=== PATIENT | female | born 1945 | race Caucasian/White ===

== ENCOUNTER → 2016-06-14 | Outpatient (REF) | payer MEDICARE | LOC: M SFHCWAGY 09:55 | PROVIDERS: ATTEND Nurse Practitioner Family | DX: Z01.419 Encounter for gynecological examination (general) (routine) without abnormal findings (principal); N95.2 Postmenopausal atrophic vaginitis ==

== ENCOUNTER → 2016-07-03 | Outpatient (REF) | payer MEDICARE ==
[2016-07-03 12:33] LABS: ALBUMIN 3.6 GM/DL (3.2-5.2); ALKALINE PHOSPHATASE 76 U/L (45-117); ALT/SGPT 37 U/L (12-78); ANION GAP 7 MEQ/L (8-16); AST/SGOT 23 U/L (15-37); BILIRUBIN,TOTAL 0.6 MG/DL (0.2-1.0); BLOOD UREA NITROGEN 18 MG/DL (7-18); CALCIUM LEVEL 9.2 MG/DL (8.8-10.2); CARBON DIOXIDE LEVEL 31 MEQ/L (21-32); CHLORIDE LEVEL 107 MEQ/L (98-107); CHOLESTEROL LEVEL 183 MG/DL (<200); CREATININE FOR GFR 0.85 MG/DL (0.55-1.02); GLOMERULAR FILTRATION RATE > 60.0 (>39); GLUCOSE, FASTING 127 MG/DL (83-110); POTASSIUM SERUM 4.6 MEQ/L (3.5-5.1); SODIUM LEVEL 145 MEQ/L (136-145); TOTAL PROTEIN 6.6 GM/DL (6.4-8.2); TRIGLYCERIDES LEVEL 112 MG/DL (<150)
== END ==
LOC: M SFHCPLAZ 08:05
PROVIDERS: ATTEND Nurse Practitioner Family
DX: E88.81 Metabolic syndrome and other insulin resistance (principal); E78.2 Mixed hyperlipidemia; E55.9 Vitamin D deficiency, unspecified

== ENCOUNTER → 2016-10-12 | Outpatient (REF) | payer MEDICARE ==
[2016-10-12 12:10] LABS: ALBUMIN 3.8 GM/DL (3.2-5.2); ALBUMIN/GLOBULIN RATIO 1.36 (1.00-1.93); ALKALINE PHOSPHATASE 73 U/L (45-117); ALT/SGPT 31 U/L (12-78); ANION GAP 8 MEQ/L (8-16); AST/SGOT 26 U/L (15-37); BILIRUBIN,TOTAL 0.8 MG/DL (0.2-1.0); BLOOD UREA NITROGEN 16 MG/DL (7-18); CALCIUM LEVEL 9.1 MG/DL (8.8-10.2); CARBON DIOXIDE LEVEL 29 MEQ/L (21-32); CHLORIDE LEVEL 108 MEQ/L (98-107); CREATININE FOR GFR 0.71 MG/DL (0.55-1.02); GLOMERULAR FILTRATION RATE > 60.0 (>39); GLUCOSE, FASTING 107 MG/DL (83-110); POTASSIUM SERUM 4.5 MEQ/L (3.5-5.1); SODIUM LEVEL 145 MEQ/L (136-145); TOTAL PROTEIN 6.6 GM/DL (6.4-8.2)
== END ==
LOC: M SFHCPLAZ 08:06
PROVIDERS: ATTEND Nurse Practitioner Family
DX: E11.9 Type 2 diabetes mellitus without complications (principal)

== ENCOUNTER → 2017-01-08 | Outpatient (CLI) | payer MEDICARE ==
--- NOTE | 2017-01-08 14:19 | REP ---
Clinical: Lung screening. History smoking. Comparison: None Technique: Axial low-dose noncontrast images from the thoracic inlet to the upper abdomen using lung screening technique. Findings: The lung morelos are well-aerated and relatively symmetric. Mild scattered age-related chronic interstitial changes are identified. Biapical opacities most likely represent chronic scarring. No consolidation, significant nodule or mass lesion is appreciated. No pleural effusion/reaction or pneumothorax. Tracheobronchial tree is patent. Mediastinum demonstrates mild atherosclerotic changes of the coronary arteries without cardiomegaly. Impression: Lung-RADS category I-S. No definite nodule or suspicious abnormality. Biapical opacities likely representing chronic scarring. Consider follow-up examination at 9-12 months unless symptomatology warrants earlier reevaluation. Signed by Pascual Kilpatrick MD 01/08/2017 02:11 P
== END ==
LOC: M RAD 13:17
PROVIDERS: ATTEND Nurse Practitioner Family
DX: Z12.2 Encounter for screening for malignant neoplasm of respiratory organs (principal); Z87.891 Personal history of nicotine dependence; R91.8 Other nonspecific abnormal finding of lung field

== ENCOUNTER → 2017-04-16 | Outpatient (REF) | payer OTHER ==
[2017-04-16 12:54] LABS: TOTAL 25(OH) VITAMIN D 68.2 NG/ML (30.0-100.0)
[2017-04-16 13:11] LABS: ALBUMIN 3.6 GM/DL (3.2-5.2); ALKALINE PHOSPHATASE 73 U/L (45-117); ALT/SGPT 24 U/L (12-78); ANION GAP 8 MEQ/L (8-16); AST/SGOT 23 U/L (7-37); BILIRUBIN,TOTAL 0.7 MG/DL (0.2-1.0); BLOOD UREA NITROGEN 15 MG/DL (7-18); CALCIUM LEVEL 9.1 MG/DL (8.8-10.2); CARBON DIOXIDE LEVEL 30 MEQ/L (21-32); CHLORIDE LEVEL 105 MEQ/L (98-107); CHOLESTEROL LEVEL 160 MG/DL (<200); CHOLESTEROL RISK RATIO 2.857 (<5); CREATININE FOR GFR 0.68 MG/DL (0.55-1.30); FREE T4 1.06 NG/DL (0.76-1.46); GLOMERULAR FILTRATION RATE > 60.0 (>39); GLUCOSE, FASTING 116 MG/DL (70-100); HDL CHOLESTEROL 56 MG/DL (>40); NON-HDL-C 104 MG/DL; POTASSIUM SERUM 4.4 MEQ/L (3.5-5.1); SODIUM LEVEL 143 MEQ/L (136-145); TOTAL PROTEIN 6.6 GM/DL (6.4-8.2); TRIGLYCERIDES LEVEL 95 MG/DL (<150)
[2017-04-16 13:35] LABS: ESTIMATED AVERAGE GLUCOSE 143 MG/DL (60-110); HEMOGLOBIN A1c 6.6 %
== END ==
LOC: M SFHCPLAZ 08:58
DX: E11.9 Type 2 diabetes mellitus without complications (principal); E78.2 Mixed hyperlipidemia; E55.9 Vitamin D deficiency, unspecified
CPT/HCPCS: 84443

== ENCOUNTER → 2017-06-17 | Outpatient (CLI) | payer OTHER | LOC: M WHC 09:28 | DX: Z12.31 Encounter for screening mammogram for malignant neoplasm of breast (principal); Z78.0 Asymptomatic menopausal state; Z92.89 Personal history of other medical treatment; Z12.12 Encounter for screening for malignant neoplasm of rectum | CPT/HCPCS: 77067 ==

== ENCOUNTER → 2017-10-15 | Outpatient (REF) | payer OTHER ==
[2017-10-15 11:11] LABS: ESTIMATED AVERAGE GLUCOSE 134 MG/DL (60-110); HEMOGLOBIN A1c 6.3 %
[2017-10-15 11:25] LABS: ALBUMIN 3.4 GM/DL (3.2-5.2); ALBUMIN/GLOBULIN RATIO 1.13 (1.00-1.93); ALKALINE PHOSPHATASE 68 U/L (45-117); ALT/SGPT 25 U/L (12-78); ANION GAP 5 MEQ/L (8-16); AST/SGOT 17 U/L (7-37); BILIRUBIN,TOTAL 0.9 MG/DL (0.2-1.0); BLOOD UREA NITROGEN 20 MG/DL (7-18); CALCIUM LEVEL 9.1 MG/DL (8.8-10.2); CARBON DIOXIDE LEVEL 31 MEQ/L (21-32); CHLORIDE LEVEL 109 MEQ/L (98-107); CREATININE FOR GFR 0.57 MG/DL (0.55-1.30); GLOMERULAR FILTRATION RATE > 60.0 (>39); GLUCOSE, FASTING 113 MG/DL (70-100); POTASSIUM SERUM 4.4 MEQ/L (3.5-5.1); SODIUM LEVEL 145 MEQ/L (136-145); TOTAL PROTEIN 6.4 GM/DL (6.4-8.2)
[2017-10-15 11:33] LABS: CREATININE, URINE 86.8 MG/DL; MALB URINE SIEMENS 7.1 MG/L; MAU/CREAT RATIO 8.1 MCG/MG (0.0-30.0)
== END ==
LOC: M SFHCPLAZ 09:12
DX: E11.9 Type 2 diabetes mellitus without complications (principal)
CPT/HCPCS: 80053

== ENCOUNTER → 2018-01-09 | Outpatient (CLI) | payer OTHER | LOC: M RAD 12:54 | DX: Z12.2 Encounter for screening for malignant neoplasm of respiratory organs (principal); Z87.891 Personal history of nicotine dependence; R91.1 Solitary pulmonary nodule | CPT/HCPCS: G0297 ==

== ENCOUNTER → 2018-04-17 | Outpatient (REF) | payer OTHER ==
[2018-04-17 12:32] LABS: ALBUMIN 3.7 GM/DL (3.2-5.2); ALT/SGPT 22 U/L (12-78); BILIRUBIN,TOTAL 0.9 MG/DL (0.2-1.0); BLOOD UREA NITROGEN 15 MG/DL (7-18); CALCIUM LEVEL 8.9 MG/DL (8.8-10.2); CARBON DIOXIDE LEVEL 34 MEQ/L (21-32); CHLORIDE LEVEL 105 MEQ/L (98-107); CHOLESTEROL LEVEL 161 MG/DL (<200); CHOLESTEROL RISK RATIO 2.775 (<5); CREATININE FOR GFR 0.72 MG/DL (0.55-1.30); GLOMERULAR FILTRATION RATE > 60.0 (>39); GLUCOSE, FASTING 138 MG/DL (70-100); HDL CHOLESTEROL 58 MG/DL (>40); LDL CHOLESTEROL 88 MG/DL (<100); NON-HDL-C 103 MG/DL; POTASSIUM SERUM 4.2 MEQ/L (3.5-5.1); SODIUM LEVEL 143 MEQ/L (136-145); TOTAL PROTEIN 6.4 GM/DL (6.4-8.2); TRIGLYCERIDES LEVEL 74 MG/DL (<150)
[2018-04-17 12:38] LABS: TOTAL 25(OH) VITAMIN D 67.7 NG/ML (30.0-100.0)
[2018-04-17 13:41] LABS: HEMOGLOBIN A1c 7.5 %
== END ==
LOC: M SFHCPLAZ 08:55
PROVIDERS: ATTEND Nurse Practitioner Family
DX: E11.9 Type 2 diabetes mellitus without complications (principal); E78.2 Mixed hyperlipidemia; E55.9 Vitamin D deficiency, unspecified

== ENCOUNTER → 2018-06-25 | Outpatient (CLI) | payer MEDICARE ==
--- NOTE | 2018-06-25 11:39 | REPMRS ---
Patient History The patient states she had a clinical breast exam in 06/2018. Patient is postmenopausal. No known family history of cancer. Benign cyst aspiration of the left breast, June 19, 2000. Benign lumpectomy of the right breast, 1992. No Hormone Replacement Therapy 3D TOMOSYNTHESIS WAS PERFORMED. Digital Woman Screen Mammo: June 25, 2018 - Exam #: [id number] Bilateral CC and MLO view(s) were taken. Technologist: Letitia Hampton, Technologist Prior study comparison: June 17, 2017, digital woman screen mammo performed at [facility]. June 14, 2016, digital woman screen mammo performed at [facility]. FINDINGS: The breast tissue is heterogeneously dense. This may lower the sensitivity of mammography. There has been no change in the appearance of the mammogram from the prior studies. There is a moderate amount of residual fibroglandular tissue which is fairly symmetric. There is no interval development of dominant mass, areas of architectural distortion, or clustered microcalcification typical of malignancy. Assessment: BI-RADS/ACR category 1 mammogram. Negative Mammogram. Recommendation Routine screening mammogram in 1 year (for women over age 40). This mammogram was interpreted with the aid of an FDA-approved computer-aided dectection system. Electronically Signed By: Rohan Zavaleta MD 06/25/18 0626
== END ==
LOC: M WHC 09:31
PROVIDERS: ATTEND Nurse Practitioner Family
DX: Z12.31 Encounter for screening mammogram for malignant neoplasm of breast (principal); N95.9 Unspecified menopausal and perimenopausal disorder; Z78.0 Asymptomatic menopausal state; Z86.018 Personal history of other benign neoplasm

== ENCOUNTER → 2018-07-25 | Outpatient (REF) | payer MEDICARE ==
[2018-07-25 12:23] LABS: ALBUMIN 3.5 GM/DL (3.2-5.2); ALT/SGPT 18 U/L (12-78); BILIRUBIN,TOTAL 0.8 MG/DL (0.2-1.0); BLOOD UREA NITROGEN 13 MG/DL (7-18); CALCIUM LEVEL 9.2 MG/DL (8.8-10.2); CARBON DIOXIDE LEVEL 33 MEQ/L (21-32); CHLORIDE LEVEL 106 MEQ/L (98-107); CHOLESTEROL LEVEL 142 MG/DL (<200); CHOLESTEROL RISK RATIO 2.679 (<5); CREATININE FOR GFR 0.68 MG/DL (0.55-1.30); FREE T4 1.21 NG/DL (0.76-1.46); GLOMERULAR FILTRATION RATE > 60.0 (>39); GLUCOSE, FASTING 123 MG/DL (70-100); HDL CHOLESTEROL 53 MG/DL (>40); LDL CHOLESTEROL 72 MG/DL (<100); NON-HDL-C 89 MG/DL; POTASSIUM SERUM 4.7 MEQ/L (3.5-5.1); SODIUM LEVEL 144 MEQ/L (136-145); TOTAL PROTEIN 6.6 GM/DL (6.4-8.2); TRIGLYCERIDES LEVEL 83 MG/DL (<150)
[2018-07-25 12:44] LABS: MALB URINE SIEMENS 20.4 MG/L; MAU/CREAT RATIO 12.2 MCG/MG (0.0-30.0)
[2018-07-25 12:48] LABS: HEMOGLOBIN A1c 6.7 %
== END ==
LOC: M SFHCPLAZ 08:52
PROVIDERS: ATTEND Nurse Practitioner Family
DX: E11.9 Type 2 diabetes mellitus without complications (principal); E78.2 Mixed hyperlipidemia

== ENCOUNTER → 2018-09-25 | Outpatient (REF) | payer MEDICARE ==
[2018-09-25 16:06] LABS: C REACTIVE PROTEIN QUANTITATIV < 0.30 MG/DL (0.00-0.30)
[2018-09-25 16:07] LABS: BASO % 0.6 % (0.0-1.0); EOS # 0.1 10^3/uL (0.0-0.50); EOS % 1.6 % (0.0-3.0); HEMATOCRIT 42.8 % (36.0-47.0); HEMOGLOBIN 14.3 g/dl (12.0-15.5); LYMPH # 1.3 10^3/uL (1.5-4.5); LYMPH % 25.3 % (24.0-44.0); MEAN CORPUSCULAR HEMOGLOBIN 32.3 pg (27.0-33.0); MEAN CORPUSCULAR HGB CONC 33.4 g/dl (32.0-36.5); MEAN CORPUSCULAR VOLUME 96.6 fl (80.0-96.0); MONO # 0.5 10^3/uL (0.0-0.8); NEUTROPHILS # 3.2 10^3/uL (1.8-7.7); NEUTROPHILS % 63.3 % (36.0-66.0); PLATELET COUNT, AUTOMATED 158 10^3/uL (150-450); RED BLOOD COUNT 4.43 10^6/uL (4.00-5.40)
[2018-09-25 18:27] LABS: ERYTHROCYTE SEDIMENTATION RATE 15 mm/hr (0-30)
[2018-09-26 11:24] LABS: CA 125 7.4 U/ML (<30.2)
[2018-09-26 12:13] LABS: CA19-9 TUMOR MARKER,CARBOHYDRA 1207.3 U/ML (<35.0)
== END ==
LOC: M SFHCPLAZ 13:50
PROVIDERS: ATTEND Physician Assistant Medical
DX: M54.9 Dorsalgia, unspecified (principal)

== ENCOUNTER → 2018-09-25 | Outpatient (CLI) | payer MEDICARE ==
--- NOTE | 2018-09-25 15:09 | REP ---
Lumbar spine five views: There are no comparisons. There is mild scoliosis convex left at the mid lumbar spine. Vertebral body heights are normal. There is disc space narrowing and degenerative disc disease at L1-2, L2-3 and L3-4. There is mild grade 1 retrolisthesis of L2, likely degenerative. There is no spondylolysis. There is facet osteoarthritis at the lower lumbar levels. The pedicles and sacroiliac articulations are unremarkable. Impression: Degenerative disc disease as described. Grade 1 retrolisthesis of L2, likely degenerative. Electronically Signed by Rohan Strange MD 09/25/2018 03:01 P
--- NOTE | 2018-09-25 15:12 | REP ---
Cervical spine seven views: Vertebral body heights and alignment are normal. There is disc space narrowing and degenerative disc disease at multiple levels from C3 - C7. There is no listhesis on flexion or extension. The prevertebral soft tissues are unremarkable. The facets are normally aligned. There is mild foraminal encroachment at multiple levels bilaterally from uncinate spurring. The odontoid view is unremarkable. There is scoliosis convex left in the upper thoracic spine. Impression: Degenerative disc disease as described. Foraminal encroachment as described. Scoliosis of the upper thoracic spine as described. The of nerve root compression or cord compression are clinical considerations, consider MRI follow up. Electronically Signed by Rohan Strange MD 09/25/2018 03:03 P
--- NOTE | 2018-09-25 15:14 | REP ---
Thoracic spine two views: There is scoliosis convex right in the upper thoracic spine. Vertebral body heights, interspacing alignment are normal. The pedicles are unremarkable. Impression: Scoliosis, otherwise negative thoracic spine. Electronically Signed by Rohan Strange MD 09/25/2018 03:05 P
== END ==
LOC: M SMT 14:20
PROVIDERS: ATTEND Physician Assistant Medical
DX: M50.31 Other cervical disc degeneration, high cervical region (principal); M50.321 Other cervical disc degeneration at C4-C5 level; M50.322 Other cervical disc degeneration at C5-C6 level; M50.323 Other cervical disc degeneration at C6-C7 level; M54.9 Dorsalgia, unspecified

== ENCOUNTER → 2018-09-30 | Outpatient (CLI) | payer MEDICARE ==
[2018-09-30 20:27] LABS: ALBUMIN 3.8 GM/DL (3.2-5.2); ALT/SGPT 27 U/L (12-78); BILIRUBIN,TOTAL 0.8 MG/DL (0.2-1.0); BLOOD UREA NITROGEN 16 MG/DL (7-18); CALCIUM LEVEL 9.3 MG/DL (8.8-10.2); CARBON DIOXIDE LEVEL 32 MEQ/L (21-32); CHLORIDE LEVEL 104 MEQ/L (98-107); CREATININE FOR GFR 0.63 MG/DL (0.55-1.30); GLOMERULAR FILTRATION RATE > 60.0 (>39); GLUCOSE, FASTING 111 MG/DL (70-100); SODIUM LEVEL 140 MEQ/L (136-145)
== END ==
LOC: M WUC 18:14
PROVIDERS: ATTEND Nurse Practitioner Family
DX: M54.9 Dorsalgia, unspecified (principal)

== ENCOUNTER → 2018-09-30 | Outpatient (REF) | payer MEDICARE | LOC: M SFHCPLAZ 17:51 | PROVIDERS: ATTEND Nurse Practitioner Family | DX: M54.9 Dorsalgia, unspecified (principal) ==

== ENCOUNTER → 2018-10-01 | Outpatient (CLI) | payer MEDICARE ==
[~2018-10-01] MED LIST: GASTROGRAFIN SOLUTION 30ML (Q9963) As Ordered ONE; ISOVUE-370 76% 100ML VIAL (Q9967) As Ordered ONE
--- NOTE | 2018-10-01 15:25 | REP ---
CT ABDOMEN WITH ORAL CONTRAST WITH AND WITHOUT IV CONTRAST: TECHNIQUE: Axial noncontrast images through the abdomen followed by contrast-enhanced images through the abdomen and pelvis using 100 mL Isovue 370 intravenous contrast material, with coronal and sagittal reformations. Visualized lung bases demonstrate no infiltrate. The liver demonstrates a nodule in the left lobe laterally approximately 1.3 cm in diameter. There is a suggestion of peripheral nodular enhancement within the left side of the nodule and this may represent a hemangioma. However, a metastatic lesion cannot totally be excluded. No other liver nodule is seen. Gallbladder is mildly distended and grossly unremarkable. Spleen is normal in size with no intrinsic abnormality. The adrenal glands demonstrate no nodule. 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 There is on hydronephrosis bilaterally. There is cortical scarring of the left kidney. Pancreas demonstrates a large oval mass involving the body of the pancreas measuring about 5 x 3 cm. The pancreatic duct is obstructed and is peripherally dilated. The mass extends superiorly and encases the celiac artery and extends posteriorly to encase the superior mesenteric artery. There is extension also into the left paraaortic region at the level of the left renal vein. Otherwise there is no evidence of lymphadenopathy, free air or free fluid in the visualized abdomen. No bowel wall thickening is seen. There is a large amount of fecal material in the visualized colon. There are degenerative changes of the spine. IMPRESSION: Mass in the body of the pancreas measures approximately 5 x 3 cm. This appears to obstruct the pancreatic duct with peripheral dilatation of the duct. Mass extends superiorly to encase the celiac artery and posteriorly to encase the superior mesenteric artery. It extends into the left paraaortic region at the level of the left renal vasculature. Nonspecific nodule in the left lobe of the liver demonstrates a suggestion of peripheral nodular enhancement and this possibly represents a hemangioma 1.3 cm in diameter. However, a metastatic lesion cannot be excluded. Dedicated dynamic CT or MRI would be needed to further evaluate. Electronically Signed by Rohan Zavaleta MD 10/02/2018 07:49 A
== END ==
LOC: M RAD 11:45
PROVIDERS: ATTEND Physician Assistant Medical
DX: K86.89 Other specified diseases of pancreas (principal); K76.89 Other specified diseases of liver; M54.9 Dorsalgia, unspecified
CPT/HCPCS: 74170; Q9963; Q9967

== ENCOUNTER → 2018-10-03 | Outpatient (CLI) | payer MEDICARE ==
[~2018-10-03] MED LIST changes: +ASPI81CH33 PO; +ATOR40TA75 PO; +GABA-1171 PO; +GABA-843 PO; -GASTROGRAFIN SOLUTION 30ML (Q9963) As Ordered ONE; +HYDR-3719 PO; +HYDR-4517 PO; +HYDR1SOL22 PO; -ISOVUE-370 76% 100ML VIAL (Q9967) As Ordered ONE; +LIDO2.5C15 TOP; +LOMO2.5T PO; +MEGE40SU5 PO; +METF-791 PO; +MORP-69 PO; +MORP10SO PO; +NEUR300C PO; +OMEG12002 PO; +ONDA-83 PO; +OXYC-517 PO; +PROP10TA56 PO; +VITA-158 PO; +[UNRECOGNIZED DRUG - CODE] PO
[2018-10-03 11:53] LABS: BLOOD UREA NITROGEN 13 MG/DL (7-18); CALCIUM LEVEL 9.8 MG/DL (8.8-10.2); CARBON DIOXIDE LEVEL 34 MEQ/L (21-32); CHLORIDE LEVEL 103 MEQ/L (98-107); CREATININE FOR GFR 0.64 MG/DL (0.55-1.30); GLOMERULAR FILTRATION RATE > 60.0 (>39); GLUCOSE, FASTING 141 MG/DL (70-100); POTASSIUM SERUM 4.3 MEQ/L (3.5-5.1); SODIUM LEVEL 141 MEQ/L (136-145)
== END ==
LOC: M WUC 10:15
PROVIDERS: ATTEND Nurse Practitioner Family
DX: G89.3 Neoplasm related pain (acute) (chronic) (principal)

== ENCOUNTER 2018-11-06 17:07 | Inpatient (IN) | payer MEDICARE ==
[~2018-11-06] VITALS: Ht 167.6 cm; Wt 51.0 kg
[~2018-11-06 17:07] MED LIST changes: -GABA-1171 PO; -GABA-843 PO; -HYDR-4517 PO; -HYDR1SOL22 PO; -LOMO2.5T PO; -MORP10SO PO; -ONDA-83 PO; +ONDA4TAB5 PO
[2018-11-06] MEDS ORDERED: HYDROMORPHONE HCL 0.5 MG/ 0.5 ML SYRINGE (J1170 PER 1) IV PRN (18:00)
[2018-11-06] MEDS ORDERED: ONDANSETRON 4MG/2ML VIAL (J2405) IV ONE (18:00)
[2018-11-06 18:09] LABS: BASO % 0.5 % (0.0-1.0); EOS # 0.1 10^3/uL (0.0-0.5); EOS % 1.4 % (0.0-3.0); HEMATOCRIT 39.6 % (36.0-47.0); HEMOGLOBIN 13.4 g/dl (12.0-15.5); LYMPH # 1.2 10^3/uL (1.5-5.0); LYMPH % 18.5 % (24.0-44.0); MEAN CORPUSCULAR HEMOGLOBIN 32.4 pg (27.0-33.0); MEAN CORPUSCULAR HGB CONC 33.8 g/dl (32.0-36.5); MEAN CORPUSCULAR VOLUME 95.9 fl (80.0-96.0); MONO # 0.6 10^3/uL (0.0-0.8); MONO % 9.6 % (0.0-5.0); NEUTROPHILS # 4.6 10^3/uL (1.5-8.5); NEUTROPHILS % 69.5 % (36.0-66.0); PLATELET COUNT, AUTOMATED 161 10^3/uL (150-450); RED BLOOD COUNT 4.13 10^6/uL (4.00-5.40); WHITE BLOOD COUNT 6.6 10^3/uL (4.0-10.0)
[2018-11-06 18:50] LABS: ALBUMIN 3.3 GM/DL (3.2-5.2); ALT/SGPT 15 U/L (12-78); BILIRUBIN,DIRECT 0.2 MG/DL (0.0-0.2); BILIRUBIN,TOTAL 0.7 MG/DL (0.2-1.0); CK-MB VALUE MASS < 1.0 NG/ML (<3.6); CPK CREATINE PHOSPHOKINASE 51 U/L (26-192); LIPASE 61 U/L (73-393); MB/CK RELATIVE INDEX 1.96 (< OR =4); TOTAL PROTEIN 6.4 GM/DL (6.4-8.2); TROPONIN I < 0.02 NG/ML (< 0.10)
[2018-11-06] MEDS ORDERED: GABA-1171 PO (19:24)
[2018-11-06] MEDS ORDERED: HYDR-4517 PO (19:24)
[2018-11-06 19:27] LABS: APPEARANCE, URINE CLOUDY (CLEAR); BACTERIA, URINE AUTO NEGATIVE (NEGATIVE); BILIRUBIN, URINE AUTO NEGATIVE (NEGATIVE); BLOOD, URINE BLOOD NEGATIVE (NEGATIVE); CALCIUM OXALATE CRYSTALS LARGE; COLOR, URINE YELLOW (YELLOW); GLUCOSE, URINE (UA) AUTO NEGATIVE (NEGATIVE); KETONE, URINE AUTO NEGATIVE (NEGATIVE); LEUKOCYTE ESTERASE, URINE AUTO 3+ (NEGATIVE); MUCUS, URINE SMALL (NEGATIVE); NITRITE, URINE AUTO NEGATIVE (NEGATIVE); PROTEIN, URINE AUTO 1+ mg/dL (NEGATIVE); RBC, URINE AUTO 9 /HPF (0-3); SQUAMOUS EPITHELIAL CELL UR AU 0 /HPF (0-6); TRANSITIONAL EPITHELIAL AUTO <1 /HPF; WBC, URINE AUTO 6 /HPF (0-3)
[2018-11-06] MEDS ORDERED: LIDOCAINE 4% CREAM 5GM (LMX4) TOP ONE (20:00)
--- NOTE | 2018-11-06 20:16 | HPEPDOC ---
General Date of Admission Nov 06, 2018 at 17:08 Date of Service: Nov 06, 2018 Primary Care Physician: DANILO MO NP Attending Physician: JAYLA ERIC DO Chief Complaint The patient is a 73-year-old female admitted with a reason for visit of Intractible Pain/ Pacreatic Cancer. Source: Patient, Family Exam Limitations: No limitations Timing/Duration: Week(s) Severity: Severe History of Present Illness Patient 73 years old female with past medical history of type 2 diabetes, pancreatic cancer presented to the hospital with intractable left-sided back pain. She noted left severe back pain is located in the left flank and became progressively worse. Patient stated that for past few weeks intensity of the pain has been increased. Today patient started taking OxyContin but it didn't alleviate her pain. Of note, patient was recently diagnosed with pancreatic cancer stage IV, CT scan showed pancreatic mass 5 to 3 cm obstructing the pancreatic duct. Also patient was found to have 1.3 cm lesion on the liver. Dr. Partida oncologist planned to start chemotherapy on the next week. Home Medications Scheduled Ascorbic Acid (Vitamin C) 500 Mg Tablet, 500 MG PO QPM, (Reported) TAKES AT DINNERTIME Aspirin (Aspirin) 81 Mg Tab.chew, 81 MG PO QHS, (Reported) Atorvastatin Calcium (Atorvastatin Calcium) 40 Mg Tablet, 40 MG PO DAILY, (Reported) Gabapentin (Gabapentin) 100 Mg Capsule, 100 MG PO TID, (Reported) NEW MEDICATION, HAS NOT STARTED Lidocaine/Prilocaine (Lidocaine-Prilocaine Cream) 2.5%/2.5% Cream..g., 1 APLCT TOP ASDIRECTED Megestrol Acetate (Megestrol Acetate) 400 Mg/10 Ml Oral.susp, 800 MG PO DAILY Metformin HCl (Metformin HCl ER) 500 Mg Tab.er.24h, 1,000 MG PO QPM, (Reported) Morphine Sulfate (Morphine Sulfate ER) 15 Mg Tablet.er, 15 MG PO Q12H, (Reported) TAKES AT NOON AND MIDNIGHT Mv-Mn/Folic/[place]/Vit K/B Comp,C (Women's Daily Pack) 1 Each Tablet, 1 EACH PO QPM, (Reported) TAKES AT DINNERTIME [place]-3 Fatty Acids/Fish Oil ([place] 3 Fish Oil Softgel) 1 Each Capsule.dr, 1 CAP PO QPM, (Reported) TAKES AT DINNER TIME Propranolol HCl (Propranolol HCl) 10 Mg Tablet, 10 MG PO BID, (Reported) Scheduled PRN Hydrocodone/Acetaminophen (Hydrocodone-Acetamin 10-325 mg) 1 Each Tablet, 1 TAB PO Q6H PRN for PAIN, (Reported) NEW RX, HAS NOT STARTED Ondansetron HCl (Ondansetron HCl) 4 Mg Tablet, 1 TAB PO Q6HP PRN for nausea/vomiting Oxycodone HCl (Oxycodone HCl) 5 Mg Tablet, 5 MG PO BIDP PRN for pain Allergies Coded Allergies: amoxicillin (Verified Adverse Reaction, Mild, YEAST INFECTION IF HIGH DOSES, 11/05/18) clavulanic acid (Verified Adverse Reaction, Mild, YEAST INFECTION IF HIGH DOSES, 11/05/18) Past Medical History Medical History Type 2 diabetes, pancreatic carcinoma stage IV Family History Both parents from heart attack, mother had diabetes Social History * Smoker: former Smoker Alcohol: Denies Drugs: denies A-FIB/CHADSVASC A-FIB History Current/History of A-Fib/PAF?: No Current PO Anticoag Therapy: No Review of Systems Constitutional: Reports: Malaise, Weakness Eyes: Denies: Pain, Vision change ENT: Denies: Head Aches, Ear Pain Skin: Denies: Rash, Lesions Pulmonary: Denies: Cough Cardiovascular: Denies: Chest Pain, Palpitations Gastrointestinal: Reports: Abdominal Pain (left flank pain) Genitourinary: Denies: Dysuria, Frequency Hematologic: Denies: Bruising, Bleeding Excessively Endocrine: Denies: Polydipsia, Polyphagia Musculoskeletal: Denies: Neck Pain, Back Pain Psych: Denies: Mood Normal Physical Examination General Exam: Positive: Alert, Cooperative Eye Exam: Positive: PERRLA, Conjunctiva & lids normal ENT Exam: Positive: Atraumatic, Mucous membr. moist/pink Neck Exam: Positive: Supple; Negative: JVD Chest Exam: Positive: Clear to auscultation Heart Exam: Positive: Rate Normal Telemetry: Positive: No significant arrhythmia Abdomen Exam: Positive: BS Hypoactive, Tenderness (left flank tenderness on palpation) Extremity Exam: Negative: Clubbing, Cyanosis Skin Exam: Negative: Nl turgor and temperature Neuro Exam: Positive: Normal Gait, Cranial Nerves 3-12 NL Psych Exam: Positive: Mental status NL Vital Signs Vital Signs Date Time Temp Pulse Resp B/P (MAP) Pulse Ox O2 Delivery O2 Flow Rate FiO2 11/06/18 19:14 19 11/06/18 18:12 11/06/18 17:08 96.4 92 94 Room Air Laboratory Data Labs 24H Laboratory Tests 2 11/06/18 18:01: Immature Granulocyte % (Auto) 0.5, White Blood Count 6.6, Red Blood Count 4.13, Hemoglobin 13.4, Hematocrit 39.6, Mean Corpuscular Volume 95.9, Mean Corpuscular Hemoglobin 32.4, Mean Corpuscular Hemoglobin Concent 33.8, Red Cell Distribution Width 11.8, Platelet Count 161, Neutrophils (%) (Auto) 69.5H, Lymphocytes (%) (Auto) 18.5L, Monocytes (%) (Auto) 9.6H, Eosinophils (%) (Auto) 1.4, Basophils (%) (Auto) 0.5, Neutrophils # (Auto) 4.6, Lymphocytes # (Auto) 1.2L, Monocytes # (Auto) 0.6, Eosinophils # (Auto) 0.1, Basophils # (Auto) 0.0, Nucleated Red Blood Cells % (auto) 0.0, Aspartate Amino Transf (AST/SGOT) 17, Alanine Aminotransferase (ALT/SGPT) 15, Alkaline Phosphatase 77, Total Bilirubin 0.7, Direct Bilirubin 0.2, Total Creatine Kinase 51, Creatine Kinase MB < 1.0, Creatine Kinase MB Relative Index 1.96, Troponin I < 0.02, Total Protein 6.4, Albumin 3.3, Albumin/Globulin Ratio 1.06, Lipase 61L 11/06/18 18:24: POC Glucose (Misc Panel) 193H, POC Sodium (Misc Panel) 136, POC Potassium (Misc Panel) 3.7, POC Chloride (Misc Panel) 97L, POC Total CO2 (Misc Panel) 29.0H, POC Blood Urea Nitrogen (Misc Panel 15, POC Ionized Calcium (Misc Panel) 4.8, POC Creatinine (Misc Panel) 0.5L, POC Hematocrit (Misc Panel) 39.0 11/06/18 19:02: Urine Appearance CLOUDYH, Urine Color YELLOW, Urine pH 6.0, Urine Specific [place] 1.020, Urine Protein 1+H, Urine Glucose (UA) NEGATIVE, Urine Ketones NEGATIVE, Urine Urobilinogen 4.0H, Urine Bilirubin NEGATIVE, Urine Leukocyte Esterase 3+H, Urine Blood NEGATIVE, Urine Nitrite NEGATIVE, Urine WBC (Auto) 6H, Urine RBC (Auto) 9H, Urine Hyaline Casts (Auto) 0, Urine Bacteria (Auto) NEGATIVE, Urine Squamous Epithelial Cells 0, Urine Transitional Epithelial Cells <1, Urine Calcium Oxalate Cryst (Auto) LARGE, Urine Mucus (Auto) SMALL, Urine Sperm (Auto) CBC/BMP Laboratory Tests 11/06/18 18:01 Red Blood Count 4.13, Mean Corpuscular Volume 95.9, Mean Corpuscular Hemoglobin 32.4, Mean Corpuscular Hemoglobin Concent 33.8, Red Cell Distribution Width 11.8, Neutrophils (%) (Auto) 69.5 H, Lymphocytes (%) (Auto) 18.5 L, Monocytes (%) (Auto) 9.6 H, Eosinophils (%) (Auto) 1.4, Basophils (%) (Auto) 0.5, Neutrophils # (Auto) 4.6, Lymphocytes # (Auto) 1.2 L, Monocytes # (Auto) 0.6, Eosinophils # (Auto) 0.1, Basophils # (Auto) 0.0 Assessment/Plan Patient is 73 years old female with past medical history of type 2 diabetes and pancreatic carcinoma stage IV presented to the hospital with intractable pain Problems (1) Intractable pain Status: Acute Problem Text: Dilaudid IV Vicodin by mouth (2) Pancreatic cancer Status: Acute Problem Text: Patient has been diagnosed with pancreatic cancer stage IV Oncologist planned to start chemotherapy on the next week (3) Diabetes mellitus Problem Text: Insulin sliding scale Diabetes diet Plan / VTE VTE Prophylaxis Ordered?: Yes JAYLA ERIC DO Nov 06, 2018 20:16
[2018-11-06 20:25] LABS: HEMOGLOBIN 13.2 g/dl (12.0-15.5); MEAN CORPUSCULAR HEMOGLOBIN 32.9 pg (27.0-33.0); MEAN CORPUSCULAR HGB CONC 33.8 g/dl (32.0-36.5); MEAN CORPUSCULAR VOLUME 97.3 fl (80.0-96.0); PLATELET COUNT, AUTOMATED 159 10^3/uL (150-450); RED BLOOD COUNT 4.01 10^6/uL (4.00-5.40); WHITE BLOOD COUNT 7.9 10^3/uL (4.0-10.0)
--- NOTE | 2018-11-06 20:40 | ECGEPIP ---
[facility] - ED Test Date: 2018-11-06 Pat Name: DORIS FELDER Department: Room: - Gender: Female [employer]: francisco : 1945 Requested By: Rimma Long Order Number: [id number] Reading MD: Rimma Long Measurements Intervals [place] Rate: 88 P: 91 DC: 162 QRS: -3 QRSD: 99 T: 56 QT: 352 QTc: 427 Interpretive Statements SINUS RHYTHM WITH SINUS ARRHYTHMIA MODERATE ST DEPRESSION NO PRIOR Electronically Signed on 11-06-2018 20:39:55 EDT by Rimma Long
[2018-11-06] MEDS: PROPRANOLOL 10 MG TAB PO SCH (21:00)
[2018-11-06] MEDS: HYDROMORPHONE HCL 0.5 MG/ 0.5 ML SYRINGE (J1170 PER 1) IV PRN (21:02)
[2018-11-06 21:05] LABS: BLOOD UREA NITROGEN 14 MG/DL (7-18); CALCIUM LEVEL 9.4 MG/DL (8.8-10.2); CARBON DIOXIDE LEVEL 31 MEQ/L (21-32); CHLORIDE LEVEL 101 MEQ/L (98-107); CREATININE FOR GFR 0.62 MG/DL (0.55-1.30); GLOMERULAR FILTRATION RATE > 60.0 (>39); GLUCOSE, FASTING 133 MG/DL (70-100); POTASSIUM SERUM 3.8 MEQ/L (3.5-5.1); SODIUM LEVEL 139 MEQ/L (136-145)
[2018-11-06] MEDS: GABAPENTIN 100 MG CAP PO SCH (21:27)
[2018-11-06 21:44] VITALS: BP 124/70
[2018-11-07] MEDS: HYDROMORPHONE HCL 0.5 MG/ 0.5 ML SYRINGE (J1170 PER 1) IV PRN (02:03)
[2018-11-07 06:13] VITALS: BP 127/71
[2018-11-07 08:15] LABS: HEMATOCRIT 38.6 % (36.0-47.0); HEMOGLOBIN 12.9 g/dl (12.0-15.5); MEAN CORPUSCULAR HEMOGLOBIN 32.3 pg (27.0-33.0); MEAN CORPUSCULAR HGB CONC 33.4 g/dl (32.0-36.5); MEAN CORPUSCULAR VOLUME 96.5 fl (80.0-96.0); PLATELET COUNT, AUTOMATED 147 10^3/uL (150-450); WHITE BLOOD COUNT 7.2 10^3/uL (4.0-10.0)
[2018-11-07] MEDS: MEGESTROL SUSP 400 MG/10 ML UDC PO SCH (08:26)
[2018-11-07] MEDS: PROPRANOLOL 10 MG TAB PO SCH ×2 (08:26→20:45)
[2018-11-07] MEDS: HYDROcodone/APAP LIQUID 7.5-325MG 15ML UDC (LORTAB ELIXIR) PO PRN ×2 (08:26→18:12)
[2018-11-07] MEDS: GABAPENTIN 100 MG CAP PO SCH ×3 (08:26→20:45)
[2018-11-07] MEDS: HEPARIN SOD (PORCINE) 5000 UNITS/ML VIAL SC SCH ×2 (08:27→20:46)
[2018-11-07 08:29] LABS: BLOOD UREA NITROGEN 11 MG/DL (7-18); CALCIUM LEVEL 9.4 MG/DL (8.8-10.2); CARBON DIOXIDE LEVEL 29 MEQ/L (21-32); CHLORIDE LEVEL 104 MEQ/L (98-107); CREATININE FOR GFR 0.59 MG/DL (0.55-1.30); GLOMERULAR FILTRATION RATE > 60.0 (>39); GLUCOSE, FASTING 149 MG/DL (70-100); POTASSIUM SERUM 3.8 MEQ/L (3.5-5.1); SODIUM LEVEL 140 MEQ/L (136-145)
[2018-11-07] MEDS ORDERED: ATORVASTATIN 20 MG TAB PO SCH (09:00)
[2018-11-07] MEDS ORDERED: GABA-843 PO ×2 (09:08→15:39)
[2018-11-07 10:21] LABS: ALBUMIN 3.1 GM/DL (3.2-5.2); ALT/SGPT 14 U/L (12-78); BILIRUBIN,DIRECT 0.2 MG/DL (0.0-0.2); BILIRUBIN,TOTAL 0.6 MG/DL (0.2-1.0); TOTAL PROTEIN 6.5 GM/DL (6.4-8.2)
--- NOTE | 2018-11-07 11:48 | IPN ---
DATE: 11/07/2018 SUBJECTIVE: The patient complains of constant pain of the left flank, described as achy, burning and constant, without any radiation, fever or chills. No nausea or vomiting. She stated that she has lost about 30 pounds in the last few months because she has had some food aversion. She was given an appetite stimulant by her oncologist and was able to keep her food down yesterday but had a paste-like consistency bowel movement immediate after. The patient had complained of some weakness. Pain is improved with IV Dilaudid. OBJECTIVE: PHYSICAL EXAMINATION: VITAL SIGNS: Temperature 98.5, pulse 94, respiratory rate 16, blood pressure 127/71, 95% on room air. GENERAL: The patient is anicteric. No jaundice. No respiratory distress. No jugular venous distention (JVD). Tongue is midline. Face is symmetric. No cervical lymphadenopathy or thyromegaly. No oral thrush. LUNGS: Clear to auscultation. No wheezing, rales or rhonchi. HEART: S1, S2. Sinus rhythm. ABDOMEN: Soft. Tender in the left flank. No epigastric or left upper quadrant tenderness. Positive bowel sounds times four quadrants. No rebound or guarding. No hepatosplenomegaly. No abdominal bruits. EXTREMITIES: No cyanosis, clubbing or pitting edema. CURRENT HOSPITAL MEDICATIONS: - aspirin 81 mg daily - heparin subcutaneous - Lipitor 40 daily - Megace - Neurontin - propranolol - Lortab every 6 hours LABORATORY DATA: White count 7.3, hemoglobin 12, hematocrit 38, platelet count 147. Sodium 140, potassium 3.9, chloride 104, bicarbonate 29, BUN 11, creatinine 0.59, glucose 149, calcium 9.4, magnesium 2.0, total bilirubin 0.6, direct bilirubin 0.2, AST 13, ALT 14, alkaline phosphatase of 75. IMAGING STUDIES: CT of the abdomen and pelvis on 10/01/2018 showed mass in the body of the pancreas measuring 5 x 3 cm obstructing the pancreatic duct with peripheral dilatation of the duct and extending superiorly to encase the celiac and posteriorly to encase the superior mesenteric artery extending into the left periaortic region at the level of the left renal vasculature. Nonspecific nodule in the left lower lobe of the liver demonstrating suggestion of peripheral nodular enhancement and this possibly represents a hemangioma, metastatic lesion cannot be excluded. ASSESSMENT AND PLAN: This is a 73-year-old female with a history of dyslipidemia, metabolic syndrome, hand tremor, bilateral cataracts, quit smoking in 2011 with a 38 pack year history of smoking, recently diagnosed with pancreatic cancer. Seen by Dr. Isaacs at the [facility] and was planned for chemotherapy. The patient was found to have invasive ductal carcinoma, poorly differentiated, presents to the emergency room with intractable left sided flank pain. CURRENT ISSUES: 1. Intractable pain secondary to stage IV metastatic pancreatic cancer. The patient sees some improvement with IV Dilaudid. Pain management will be consulted to see if celiac block would be helpful. THe patient is followed by Dr. Isaacs at the [facility] for chemotherapy in the next few weeks. 2. 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 We will have vascular surgery evaluate and decide on whether further intervention would be needed in terms of stent placement if the tumor is causing mesenteric ischemia. 3. Weight loss of 30 pounds secondary to cancer cachexia and pancreatic cancer. 4. 38 pack year history of smoking, quit some years ago. 5. Type 2 diabetes. Currently with weight loss and BMI of 18. The patient has recently been placed on Megace to increase her appetite. 6. Anxiety and claustrophobia. The patient is refusing any enclosed imaging studies at this time. [facility]
[2018-11-07 14:04] VITALS: BP 134/72
--- NOTE | 2018-11-07 14:48 | CR.PDOC ---
General Date of Consultation: Nov 07, [address] Granda. HPI: Patient 73 yo F admitted to hospitalist 11/06/18 with intractable left-sided back pain. She states pain has been becoming worse over several months. Patient stated that for past few weeks intensity of the pain has been increased. She states she has pain when she walks down the hallway about snf, this is an achy pain, if she stops walking it decreases. The pain begins in her back and radiates through to the abdomen. She has had diarrhea and poor appetite. Denies constipation. She has had nausea and vomiting but none today. Overall she has been weak. The patient was recently diagnosed with pancreatic cancer stage IV, CT scan showed pancreatic mass 5 to 3 cm obstructing the pancreatic duct. Also patient was found to have 1.3 cm lesion on the liver. Dr. Partida oncologist planned to start chemotherapy on the next week. Vascular Surgery is consulted re mass encasing SMA and celiac arteries. Denies any fevers, chills, Headache, Chest Pain, Shortness of breath, cough, palpitations, change in bladder habits. PMHx: type 2 diabetes, pancreatic cancer Stage IV PSHX: Pt denies SOCHX: Tobacco use:former smoker ETOH: denies FAMHX: CAD, CO, DM ROS: As noted in HPI, otherwise 11pt ROS of systems reviewed and unremarkable. PE: GEN: 73yoF, appears stated age. Well-nourished, well developed. No acute distress. Alert and oriented x 3. Pleasant, interactive. HEENT: Normocephalic, atraumatic. Pupils are equal, round, and reactive to light. Extraocular movements are intact. No nystagmus appreciated. Sclera are nonicteric. Conjunctiva without injection. Nose midline. Nasal turbinates without bogginess. EACs both patent BL. TMs both visualized and zavaleta with good cone of light, no bulging or erythema. No facial asymmetry. Moist mucous membranes. Dentition fair. Pharynx pink and moist, no cobblestoning. Neck supple, trachea midline. No lymphadenopathy or thyromegaly appreciated. CHEST: Regular rate and rhythm, +S1, +S2 LUNGS: Clear to auscultation bilaterally. No wheezes, rales, or rhonchi. Breathing appears symmetric and easy. Patient is speaking in full sentences. No accessory muscle use. ABD: Round, soft, non-tender, non-distended. +Bowel sounds throughout. No rebound or guarding. No costovertebral angle tenderness. EXT: Pulses 2+ bilaterally dorsalis pedis and radial. No lower extremity edema appreciated. SKIN: [place], dry, warm. Capillary refill <2sec. No rashes. NEURO: Alert and oriented x 3. Cranial nerves III-XII are intact. No focal deficits appreciated. CT A/P Mass in the body of the pancreas measures approximately 5 x 3 cm. This appears to obstruct the pancreatic duct with peripheral dilatation of the duct. Mass extends superiorly to encase the celiac artery and posteriorly to encase the superior mesenteric artery. It extends into the left paraaortic region at the level of the left renal vasculature. Nonspecific nodule in the left lobe of the liver demonstrates a suggestion of peripheral nodular enhancement and this possibly represents a hemangioma 1.3 cm in diameter. However, a metastatic lesion cannot be excluded. Dedicated dynamic CT or MRI would be needed to further evaluate. Electronically Signed by Rohan Zavaleta MD 10/02/2018 07:49 A A&P: 1. Stage IV pancreatic Ca. Pt with intractable pain abdomen/back. CT indicates Mass in the body of the pancreas measures approximately 5 x 3 cm. This appears to obstruct the pancreatic duct with peripheral dilatation of the duct. Mass extends superiorly to encase the celiac artery and posteriorly to encase the superior mesenteric artery. It extends into the left paraaortic region at the level of the left renal vasculature. Vascular Surgery is consulted re encasement of SMA and celiac arteries. Pt is reviewed with Dr Granda, Imaging is reviewed as per Dr Granda. Requested mesenteric arterial US. Further recommendations, possibly consider mesenteric angiogram pending results. Thank you for your consultation. We will continue to follow along with you. Vital Signs/I&O Vital Signs Date Time Temp Pulse Resp B/P (MAP) Pulse Ox O2 Delivery O2 Flow Rate FiO2 11/07/18 11:09 16 11/07/18 08:26 94 127/71 11/07/18 06:13 98.5 95 11/06/18 17:08 Room Air I&O- Last 24 Hours up to 6 AM 11/07/18 06:00 Intake Total 350 ml Output Total 0 ml Balance 350 ml Laboratory Data Labs 24H Laboratory Tests 2 11/06/18 18:01: Immature Granulocyte % (Auto) 0.5, White Blood Count 6.6, Red Blood Count 4.13, Hemoglobin 13.4, Hematocrit 39.6, Mean Corpuscular Volume 95.9, Mean Corpuscular Hemoglobin 32.4, Mean Corpuscular Hemoglobin Concent 33.8, Red Cell Distribution Width 11.8, Platelet Count 161, Neutrophils (%) (Auto) 69.5H, Lymphocytes (%) (Auto) 18.5L, Monocytes (%) (Auto) 9.6H, Eosinophils (%) (Auto) 1.4, Basophils (%) (Auto) 0.5, Neutrophils # (Auto) 4.6, Lymphocytes # (Auto) 1.2L, Monocytes # (Auto) 0.6, Eosinophils # (Auto) 0.1, Basophils # (Auto) 0.0, Nucleated Red Blood Cells % (auto) 0.0, Aspartate Amino Transf (AST/SGOT) 17, Alanine Aminotransferase (ALT/SGPT) 15, Alkaline Phosphatase 77, Total Bilirubin 0.7, Direct Bilirubin 0.2, Total Creatine Kinase 51, Creatine Kinase MB < 1.0, Creatine Kinase MB Relative Index 1.96, Troponin I < 0.02, Total Protein 6.4, Albumin 3.3, Albumin/Globulin Ratio 1.06, Lipase 61L 11/06/18 18:24: POC Glucose (Misc Panel) 193H, POC Sodium (Misc Panel) 136, POC Potassium (Misc Panel) 3.7, POC Chloride (Misc Panel) 97L, POC Total CO2 (Misc Panel) 29.0H, POC Blood Urea Nitrogen (Misc Panel 15, POC Ionized Calcium (Misc Panel) 4.8, POC Creatinine (Misc Panel) 0.5L, POC Hematocrit (Misc Panel) 39.0 11/06/18 19:02: Urine Appearance CLOUDYH, Urine Color YELLOW, Urine pH 6.0, Urine Specific [place] 1.020, Urine Protein 1+H, Urine Glucose (UA) NEGATIVE, Urine Ketones NEGATIVE, Urine Urobilinogen 4.0H, Urine Bilirubin NEGATIVE, Urine Leukocyte Esterase 3+H, Urine Blood NEGATIVE, Urine Nitrite NEGATIVE, Urine WBC (Auto) 6H, Urine RBC (Auto) 9H, Urine Hyaline Casts (Auto) 0, Urine Bacteria (Auto) NEGATIVE, Urine Squamous Epithelial Cells 0, Urine Transitional Epithelial Cells <1, Urine Calcium Oxalate Cryst (Auto) LARGE, Urine Mucus (Auto) SMALL, Urine Sperm (Auto) 11/06/18 19:55: Nucleated Red Blood Cells % (auto) 0.0, Anion Gap 7L, Glomerular Filtration Rate > 60.0, Blood Urea Nitrogen 14, Creatinine 0.62, Sodium Level 139, Potassium Level 3.8, Chloride Level 101, Carbon Dioxide Level 31, Calcium Level 9.4 11/07/18 07:43: Nucleated Red Blood Cells % (auto) 0.0, Anion Gap 7L, Glomerular Filtration Rate > 60.0, Calcium Level 9.4, Magnesium Level 2.0, Aspartate Amino Transf (AST/SGOT) 13, Alanine Aminotransferase (ALT/SGPT) 14, Alkaline Phosphatase 75, Total Bilirubin 0.6, Direct Bilirubin 0.2, Total Protein 6.5, Albumin 3.1L, Albumin/Globulin Ratio 0.91L 11/07/18 10:18: Lactic Acid Level 1.9 11/07/18 11:47: Bedside Glucose (Misc Panel) 185H CBC/BMP Laboratory Tests 11/06/18 18:01 Red Blood Count 4.13, Mean Corpuscular Volume 95.9, Mean Corpuscular Hemoglobin 32.4, Mean Corpuscular Hemoglobin Concent 33.8, Red Cell Distribution Width 11.8, Neutrophils (%) (Auto) 69.5 H, Lymphocytes (%) (Auto) 18.5 L, Monocytes (%) (Auto) 9.6 H, Eosinophils (%) (Auto) 1.4, Basophils (%) (Auto) 0.5, Neutrophils # (Auto) 4.6, Lymphocytes # (Auto) 1.2 L, Monocytes # (Auto) 0.6, Eosinophils # (Auto) 0.1, Basophils # (Auto) 0.0 11/06/18 19:55 Red Blood Count 4.01, Mean Corpuscular Volume 97.3 H, Mean Corpuscular He moglobin 32.9, Mean Corpuscular Hemoglobin Concent 33.8, Red Cell Distribution Width 11.7, Calcium Level 9.4 11/07/18 07:43 Red Blood Count 4.00, Mean Corpuscular Volume 96.5 H, Mean Corpuscular Hemoglobin 32.3, Mean Corpuscular Hemoglobin Concent 33.4, Red Cell Distribution Width 11.6 Allergies Coded Allergies: amoxicillin (Verified Adverse Reaction, Mild, YEAST INFECTION IF HIGH DOSES, 11/05/18) clavulanic acid (Verified Adverse Reaction, Mild, YEAST INFECTION IF HIGH DOSES, 11/05/18) Home Medications Scheduled Ascorbic Acid (Vitamin C) 500 Mg Tablet, 500 MG PO QPM, (Reported) TAKES AT DINNERTIME Aspirin (Aspirin) 81 Mg Tab.chew, 81 MG PO QHS, (Reported) Atorvastatin Calcium (Atorvastatin Calcium) 40 Mg Tablet, 40 MG PO DAILY, (Reported) Gabapentin (Gabapentin) 100 Mg Capsule, 100 MG PO TID, (Reported) NEW MEDICATION, HAS NOT STARTED Gabapentin (Gabapentin) 300 Mg Capsule, 300 MG PO TID for 30 Days, #90 TAKE 1 CAP DAILY FOR 7 DAYS, THEN INCREASE TO 1 CAP TWICE DAILY FOR 14 DAYS, THEN INCREASE TO 1 CAP THREE TIMES DAILY Lidocaine/Prilocaine (Lidocaine-Prilocaine Cream) 2.5%/2.5% Cream..g., 1 APLCT TOP ASDIRECTED, #30 Megestrol Acetate (Megestrol Acetate) 400 Mg/10 Ml Oral.susp, 800 MG PO DAILY for 30 Days, #600 Metformin HCl (Metformin HCl ER) 500 Mg Tab.er.24h, 1,000 MG PO QPM, (Reported) Morphine Sulfate (Morphine Sulfate ER) 15 Mg Tablet.er, 15 MG PO Q12H, (Reported) TAKES AT NOON AND MIDNIGHT Mv-Mn/Folic/[place]/Vit K/B Comp,C (Women's Daily Pack) 1 Each Tablet, 1 EACH PO QPM, (Reported) TAKES AT DINNERTIME [place]-3 Fatty Acids/Fish Oil ([place] 3 Fish Oil Softgel) 1 Each Capsule.dr, 1 CAP PO QPM, (Reported) TAKES AT DINNER TIME Propranolol HCl (Propranolol HCl) 10 Mg Tablet, 10 MG PO BID, (Reported) Scheduled PRN Hydrocodone/Acetaminophen (Hydrocodone-Acetamin 10-325 mg) 1 Each Tablet, 1 TAB PO Q6H PRN for PAIN, (Reported) NEW RX, HAS NOT STARTED Ondansetron HCl (Ondansetron HCl) 4 Mg Tablet, 1 TAB PO Q6HP PRN for nausea/ vomiting for 30 Days, #30 Oxycodone HCl (Oxycodone HCl) 5 Mg Tablet, 5 MG PO BIDP PRN for pain for 30 Days, #90 Wanda Holden Nov 07, 2018 14:48
--- NOTE | 2018-11-07 16:23 | CR ---
DATE OF CONSULTATION: 11/07/2018 REFERRING PROVIDER: Dr. Nina Edwards CHIEF COMPLAINT: Abdominal pain and left low back pain. HISTORY OF PRESENT ILLNESS: Kimmie is a 73-year-old female with a past medical history of history of stage IV metastatic pancreatic cancer. Family is at the bedside. The patient is awake, alert, no acute distress. States that she has been trialed recently on pain medication to include MS-Contin 15 mg twice a day and oxycodone 5 mg. She states that this was not helping. Also reports that it made her very fatigued, and therefore, she was not eating because she was sleeping too much. States that the medication liquid hydrocodone that she took at 8 this morning helped her up until now. She did state that walking after taking this medication aggravated her pain so that she was not able to tolerate walking in the halls today. Discussed medication options briefly with her. I noted there was some mention of doing a celiac plexus block. I would recommend you consider interventional radiology referral for that as Dr. Huertas is not currently offering that through our practice. She appears comfortable but weepy. ALLERGIES: AMOXICILLIN and CLAVULANIC ACID. PAST MEDICAL HISTORY: Type 2 diabetes. SOCIAL HISTORY: Former smoker. Denies alcohol use. Denies illicit drug use. REVIEW OF SYSTEMS: 11-point review of systems is negative except for recent weight loss of 30 pounds and frequent bowel movements. PHYSICAL EXAMINATION: Alert. Affect is flat. Poor eye contact. Cardiac: S1, S2, normal rate and rhythm. Respiratory: Lung sounds are clear. Respirations nonlabored. ASSESSMENT: Pain secondary to metastatic disease. PLAN: Due to the fact that the patient and family are worried about her becoming too sedated as she was on previous morphine long-acting and short-acting oxycodone, I would consider using the liquid hydrocodone on a scheduled basis every 4 hours possibly four times a day and see how she tolerates this. Of course adjusting accordingly for any side effects. She may also benefit from a short course of IV Toradol. She will be following with oncology for pain management on discharge.
[2018-11-07] MEDS: ASPIRIN 81 MG ENTERIC TAB PO SCH (20:45)
[2018-11-07 22:00] VITALS: BP 135/67
[2018-11-08] MEDS: HYDROcodone/APAP LIQUID 7.5-325MG 15ML UDC (LORTAB ELIXIR) PO PRN ×3 (03:30→16:34)
--- NOTE | 2018-11-08 05:12 | REPVR ---
EXAM: US Duplex Artery or Vein of the Abdominal and/or Reproductive Organs, Limited EXAM DATE/TIME: 11/08/2018 2:21 AM CLINICAL HISTORY: 73 years old, female; Other: Abd pain; Additional info: Mesenteric US, TECHNIQUE: Imaging protocol: Real-time duplex ultrasound scan of the arterial or venous flow of the abdomen and/or reproductive organs, with color Doppler flow and spectral waveform analysis with image documentation. Exam focused on the region of clinical interest. Duplex images were received to evaluate vascular conditions. COMPARISON: No relevant prior studies available. FINDINGS: Pancreas: There is a large irregular mass measuring at least 6.1 x 3.5 x 1.9 cm in the pancreatic body region surrounding the SMA and celiac trunk however without hemodynamically significant stenosis. Aorta: The proximal abdominal aorta is normal in caliber and widely patent with a systolic velocity of 62.1 cm/s. Other vasculature: The proximal SMA demonstrates slightly higher resistance wave forms preprandially with peak systolic velocities of 2 12 cm/s in the proximal SMA with a resistive index of 0.89. Peak systolic velocity in the mid SMA measures 1 32 cm/s. Other findings: Low resistance Preprandial waveforms are seen in the celiac artery preprandially with peak systolic velocity of 161 cm/s with a resistive index of 0.79. There is low resistive index waveform postprandial with increase in peak systolic velocity 359 cm/s after 10 minutes, 2 88 cm/s after 20 minutes, 2 47 cm/s after 30 minutes, 2 58 cm/s after 40 minutes and 2 48 cm/s after 50 minutes with progressive increase in resistive index as this time passes. IMPRESSION: 1. 6.1 x 3.5 x 1.9 cm irregular pancreatic neck mass surrounding the celiac trunk and SMA. Further characterization with CT or MRI with contrast is recommended . 2. Mild increased velocities in the proximal celiac trunk and SMA however with appropriate increase in peak systolic velocities post prandial in the SMA suggestive of mild less than 50% stenosis. No hemodynamically significant stenosis or occlusion seen in the SMA or celiac trunk. Electronically signed by: Yohan Murillo On 11/08/2018 05:11:43 AM
[2018-11-08 06:00] VITALS: BP 146/70
[2018-11-08 07:09] LABS: BASO % 0.6 % (0.0-1.0); EOS # 0.1 10^3/uL (0.0-0.5); EOS % 1.3 % (0.0-3.0); HEMATOCRIT 34.7 % (36.0-47.0); HEMOGLOBIN 11.8 g/dl (12.0-15.5); LYMPH # 1.1 10^3/uL (1.5-5.0); LYMPH % 22.6 % (24.0-44.0); MEAN CORPUSCULAR HEMOGLOBIN 32.2 pg (27.0-33.0); MEAN CORPUSCULAR VOLUME 94.8 fl (80.0-96.0); MONO # 0.6 10^3/uL (0.0-0.8); MONO % 13.2 % (0.0-5.0); NEUTROPHILS % 62.3 % (36.0-66.0); PLATELET COUNT, AUTOMATED 145 10^3/uL (150-450); RED BLOOD COUNT 3.66 10^6/uL (4.00-5.40); WHITE BLOOD COUNT 4.8 10^3/uL (4.0-10.0)
[2018-11-08 07:30] LABS: ALBUMIN 2.8 GM/DL (3.2-5.2); ALT/SGPT 13 U/L (12-78); BILIRUBIN,TOTAL 0.4 MG/DL (0.2-1.0); BLOOD UREA NITROGEN 13 MG/DL (7-18); CARBON DIOXIDE LEVEL 26 MEQ/L (21-32); CHLORIDE LEVEL 107 MEQ/L (98-107); CREATININE FOR GFR 0.58 MG/DL (0.55-1.30); GLOMERULAR FILTRATION RATE > 60.0 (>39); GLUCOSE, FASTING 241 MG/DL (70-100); POTASSIUM SERUM 3.9 MEQ/L (3.5-5.1); SODIUM LEVEL 141 MEQ/L (136-145); TOTAL PROTEIN 6.3 GM/DL (6.4-8.2)
[2018-11-08] MEDS: MEGESTROL SUSP 400 MG/10 ML UDC PO SCH (09:40)
[2018-11-08] MEDS: GABAPENTIN 100 MG CAP PO SCH ×3 (09:40→20:56)
[2018-11-08] MEDS: PROPRANOLOL 10 MG TAB PO SCH ×2 (09:41→20:56)
[2018-11-08] MEDS: HEPARIN SOD (PORCINE) 5000 UNITS/ML VIAL SC SCH ×2 (09:41→20:56)
--- NOTE | 2018-11-08 13:20 | IPN ---
DATE: 11/08/2018 Kimmie is seen on [address] while rounding for the hospitalist. She is a patient of Dr. Letitia Isaacs's, being treated for stage IV pancreatic cancer, admitted with severe left-sided abdominal pain. She had a Doppler ultrasound yesterday that showed her pancreatic mass, less than 50% stenosis of the SMA suggested. No significant occlusion suggested of the SMA or celiac trunk. Clinically, she says that her pain is under better control. She had a restless night. She was sleeping when I went to see her. PHYSICAL EXAM: Afebrile. Blood pressure 146/70. General Appearance: Cachectic and chronically ill appearing. Lungs: Clear. Heart: Regular rhythm. Abdomen: Soft, diffusely mildly tender. No peripheral edema. LABORATORY: CBC: White count 4, hemoglobin 11.8, platelets 145. Sodium 141, potassium 3.9, BUN 13, creatinine 0.5, glucose 241. IMPRESSION: 1. Stage IV pancreatic cancer. Ultrasound does not suggest that tumor is causing significant stenosis of mesenteric arteries. Pain control through intravenous (IV) Toradol and liquid hydrocodone per pain management consult. Followed by Dr. Letitia Isaacs of oncology. 2. Cancer-related weight loss with protein-calorie malnutrition. She is on Megace for what it's worth. This medicine does increase thromboembolic risk, but she is on subcu heparin. 3. Type 2 diabetes. Her metformin is on hold. She is getting blood sugars checked periodically. Would not cover except for severe hyperglycemia. She will be more prone to hypoglycemia with no reserves due to her malnutrition. 4. Hyperlipidemia. I would recommend stopping her atorvastatin. Stage IV pancreatic cancer carries a grim prognosis, and it is unlikely that hyperlipidemia is going to significantly affect her prognosis. Also, if she starts chemotherapy, it will be better not to have atorvastatin affecting her liver. Hospitalist group will be assuming her care tomorrow.
[2018-11-08 14:00] VITALS: BP 156/80
[2018-11-08] MEDS: ASPIRIN 81 MG ENTERIC TAB PO SCH (20:56)
[2018-11-08] MEDS: KETOROLAC 30 MG/ML VIAL (J1885) IV PRN (20:57)
[2018-11-08 22:00] VITALS: BP 144/73
[2018-11-09] MEDS: HYDROcodone/APAP LIQUID 7.5-325MG 15ML UDC (LORTAB ELIXIR) PO PRN ×4 (03:12→21:28)
[2018-11-09] MEDS: KETOROLAC 30 MG/ML VIAL (J1885) IV PRN (05:36)
[2018-11-09 06:00] VITALS: BP 141/75
[2018-11-09 08:54] LABS: HEMATOCRIT 36.4 % (36.0-47.0); HEMOGLOBIN 12.3 g/dl (12.0-15.5); MEAN CORPUSCULAR HEMOGLOBIN 31.9 pg (27.0-33.0); MEAN CORPUSCULAR HGB CONC 33.8 g/dl (32.0-36.5); MEAN CORPUSCULAR VOLUME 94.3 fl (80.0-96.0); PLATELET COUNT, AUTOMATED 143 10^3/uL (150-450); RED BLOOD COUNT 3.86 10^6/uL (4.00-5.40); WHITE BLOOD COUNT 4.2 10^3/uL (4.0-10.0)
[2018-11-09] MEDS: MEGESTROL SUSP 400 MG/10 ML UDC PO SCH (08:57)
[2018-11-09] MEDS: HEPARIN SOD (PORCINE) 5000 UNITS/ML VIAL SC SCH ×2 (08:57→21:27)
[2018-11-09] MEDS: PROPRANOLOL 10 MG TAB PO SCH ×2 (08:57→21:27)
[2018-11-09] MEDS: GABAPENTIN 100 MG CAP PO SCH ×3 (08:57→21:27)
[2018-11-09 09:26] LABS: ALBUMIN 2.9 GM/DL (3.2-5.2); ALT/SGPT 11 U/L (12-78); BILIRUBIN,TOTAL 0.6 MG/DL (0.2-1.0); BLOOD UREA NITROGEN 11 MG/DL (7-18); CALCIUM LEVEL 9.3 MG/DL (8.8-10.2); CARBON DIOXIDE LEVEL 25 MEQ/L (21-32); CHLORIDE LEVEL 109 MEQ/L (98-107); CREATININE FOR GFR 0.53 MG/DL (0.55-1.30); GLOMERULAR FILTRATION RATE > 60.0 (>39); GLUCOSE, FASTING 134 MG/DL (70-100); POTASSIUM SERUM 3.7 MEQ/L (3.5-5.1); SODIUM LEVEL 142 MEQ/L (136-145); TOTAL PROTEIN 6.3 GM/DL (6.4-8.2)
[2018-11-09] MEDS ORDERED: DEXTROSE 50% 50 ML SYRINGE IV PRN (11:30)
[2018-11-09] MEDS ORDERED: GLUCAGON FOR INJ 1 MG VIAL (J1610) SC PRN (11:30)
[2018-11-09] MEDS ORDERED: GLUCOSE 4 GM CHEW TABLET PO PRN (11:30)
--- NOTE | 2018-11-09 11:37 | IPNPDOC ---
Text Note Date of Service The patient was seen on 11/09/18. NOTE Subjective: Patient. Sensorineural female with a PMHx of Pancreatic CA (Stage IV), DM2, DLP, was admitted to the emergency room with left-sided abdominal pain. Emergency room, patient was suspected of having worsening of her pancreatic lesion and was admitted to hospice service for further evaluation and treatment. Vester surgery was consult because of possible vascular involvement. Ultrasound was completed which was negative for any significant level of stenosis. Pain management was consult for further control of her pain. Patient was seen and examined at the bedside. . Currently, she reports that she is feeling relatively better. She reports her general pain as a 2/10. Denies nausea, vomiting, constipation, diarrhea, or urinary discomfort. Objective: Vitals (See below) General: Lying in bed, no acute distress, comfortable, AAOx3 HEENT: NC, AT CVS: +S1S2 Lungs: Fair air entry b/l, -w/r/r Abdomen: Soft, ND, NT Extremities: - Edema, - Calf tenderness Assessment and plan: Stage IV Pancreatic CA - Clinically is feeling better; reports improvement of abdominal pain - US abdomen 11/08: 1. 6.1 x 3.5 x 1.9 cm irregular pancreatic neck mass surrounding the celiac trunk and SMA. Further characterization with CT or MRI with contrast is recommended. 2. Mild increased velocities in the proximal celiac trunk and SMA however with appropriate increase in peak systolic velocities post prandial in the SMA suggestive of mild less than 50% stenosis. No hemodynamically significant stenosis or occlusion seen in the SMA or celiac trunk. - c/w Toradol, Hydrocodone, Gabpentin - Follows with Dr. Lisa Isaacs as an outpatient - Vascular surgery on consultation - Pain management on consultation Weight loss - likely 2/2 underlying malignancy - c/w Megestrol DM2 - Outpatient Metformin on hold - Will start ISS DLP - c/w ASA - s/p Atorvastatin DVT prophylaxis - c/w Heparin Disposition: - Awaiting PT clearance VS,Ana, I+O VS, nAa, I+O Laboratory Tests 11/09/18 08:43 Red Blood Count 3.86 L, Mean Corpuscular Volume 94.3, Mean Corpuscular Hemoglobin 31.9, Mean Corpuscular Hemoglobin Concent 33.8, Red Cell Distribution Width 11.9, Calcium Level 9.3, Aspartate Amino Transf (AST/SGOT) 12, Alanine Aminotransferase (ALT/SGPT) 11 L, Alkaline Phosphatase 67, Total Bilirubin 0.6, Total Protein 6.3 L, Albumin 2.9 L Vital Signs Date Time Temp Pulse Resp B/P (MAP) Pulse Ox O2 Delivery O2 Flow Rate FiO2 11/09/18 09:26 18 11/09/18 08:57 94 141/75 11/09/18 06:00 98.6 94 11/06/18 17:08 Room Air I&O- Last 24 Hours up to 6 AM 11/09/18 06:00 Intake Total 1660 ml Output Total 0 ml Balance 1660 ml MILLA WHEELER MD Nov 09, 2018 11:37
[2018-11-09] MEDS: HumaLOG INSULIN (NovoLOG) PER UNIT SC SCH ×2 (12:48→17:44)
[2018-11-09 17:26] VITALS: BP 158/81
[2018-11-09] MEDS ORDERED: HumaLOG INSULIN (NovoLOG) PER UNIT SC SCH (21:00)
[2018-11-09] MEDS: ASPIRIN 81 MG ENTERIC TAB PO SCH (21:28)
[2018-11-09 22:00] VITALS: BP 159/84
[2018-11-10] MEDS: HYDROcodone/APAP LIQUID 7.5-325MG 15ML UDC (LORTAB ELIXIR) PO PRN ×3 (01:34→10:07)
[2018-11-10 05:55] LABS: HEMOGLOBIN 12.2 g/dl (12.0-15.5); MEAN CORPUSCULAR HEMOGLOBIN 31.9 pg (27.0-33.0); MEAN CORPUSCULAR HGB CONC 33.9 g/dl (32.0-36.5); MEAN CORPUSCULAR VOLUME 94.2 fl (80.0-96.0); PLATELET COUNT, AUTOMATED 142 10^3/uL (150-450); RED BLOOD COUNT 3.82 10^6/uL (4.00-5.40); WHITE BLOOD COUNT 4.7 10^3/uL (4.0-10.0)
[2018-11-10 06:00] VITALS: BP 156/83
[2018-11-10 06:06] LABS: INR 1.07; PROTHROMBIN TIME 13.6 SECONDS (11.8-14.0)
[2018-11-10 06:24] LABS: ALT/SGPT 13 U/L (12-78); BILIRUBIN,TOTAL 0.6 MG/DL (0.2-1.0); BLOOD UREA NITROGEN 8 MG/DL (7-18); CALCIUM LEVEL 9.4 MG/DL (8.8-10.2); CARBON DIOXIDE LEVEL 26 MEQ/L (21-32); CHLORIDE LEVEL 111 MEQ/L (98-107); CREATININE FOR GFR 0.43 MG/DL (0.55-1.30); GLOMERULAR FILTRATION RATE > 60.0 (>39); GLUCOSE, FASTING 134 MG/DL (70-100); POTASSIUM SERUM 3.8 MEQ/L (3.5-5.1); SODIUM LEVEL 144 MEQ/L (136-145); TOTAL PROTEIN 6.2 GM/DL (6.4-8.2)
[2018-11-10] MEDS ORDERED: GABAPENTIN 100 MG CAP PO SCH (09:00)
[2018-11-10] MEDS: HumaLOG INSULIN (NovoLOG) PER UNIT SC SCH (10:06)
[2018-11-10] MEDS: HEPARIN SOD (PORCINE) 5000 UNITS/ML VIAL SC SCH (10:07)
[2018-11-10] MEDS: MEGESTROL SUSP 400 MG/10 ML UDC PO SCH (10:08)
[2018-11-10 10:10] VITALS: BP 156/86
[2018-11-10] MEDS: PROPRANOLOL 10 MG TAB PO SCH (10:10)
[2018-11-10] MEDS ORDERED: HYDR1SOL22 PO (11:17)
--- NOTE | 2018-11-10 13:05 | DS.PDOC ---
Discharge Summary General Date of Admission Nov 07, 2018 at 10:54 Date of Discharge 11/10/18 Primary Care Physician: DANILO MO NP Attending Physician: GRACE SOTO MD Specialist/Consultants Involve: Wanda Holden Specialist/Consultants Involve Osmin Juarez Anes. Discharge Summary PROCEDURES PERFORMED DURING STAY: [None]. ADMITTING/DISCHARGE DIAGNOSES: Stage IV pancreatic cancer Intractable abdominal pain secondary to stage IV pancreatic cancer Type 2 diabetes Dyslipidemia bilateral cataracts Prior history of nicotine abuse (30 pack year history) COMPLICATIONS/CHIEF COMPLAINT: intractable abdominal pain HISTORY OF PRESENT ILLNESS/HOSPITAL COURSE: Patient is a 73 year old female with pmhx of recently diagnosed stage IV pancreatic cancer admitted for worsening and now intractable left sided back pain for the past few weeks. On day of presentation she had been started on oxycontin without adequate pain relief. A recent CT scan on 10/01/18 showed a 5 x 3 cm pancreatic mass obstructing the pearl creatic duct and posteriorly encasing the SMA into the level of the left renal vasculature. Her oncologist, Dr. Isaacs, had patient scheduled for chemotherapy sometime this week. Pain management was consulted the following day as was vascular surgery. An U/S was performed as the patient declined any enclosed imaging that showed less than 50% stenosis of the SMA and no significant occlusion suggested of the SMA or celiac trunk. Pain management started the patient on liquid lortab (hydrocodone bitart/acetaminophen) and toradol which provided appropriate analgesic benefit. The patient's discharge was delayed secondary to PT clearance. DISCHARGE MEDICATIONS: Please see below. ALLERGIES: Please see below. Vitals: (see below) General: frail appearing female who appears stated age in no acute distress, laying comfortably in bed. HEENT: Normocephalic, atraumatic. EOMI. Cardiac: RRR, Normal S1 and S2, No murmurs, gallops, rubs. Pulm: Clear to auscultation b/l. Symmetric thorax. No wheezing, crackles, rhonchi Abd: Bowel Sounds present. Abdomen is soft, non-tender, non-distended. Ext: No edema or cyanosis Skin: No skin changes Neuro: No focal neuro deficits Psych: Appropriate affect LABORATORY DATA: Please see below. IMAGING: Arterial/venous U/S of the abdomen: 1. 6.1 x 3.5 x 1.9 cm irregular pancreatic neck mass surrounding the celiac trunk and SMA. Further characterization with CT or MRI with contrast is recommended. 2. Mild increased velocities in the proximal celiac trunk and SMA however with appropriate increase in peak systolic velocities post prandial in the SMA sugge stive of mild less than 50% stenosis. No hemodynamically significant stenosis or occlusion seen in the SMA or celiac trunk. ACTIVITY: [As tolerated]. DIET:Consistent carbohydrates DISPOSITION: Discharge home DISCHARGE INSTRUCTIONS: 1. Please follow up with your PCP in the next 7-10 days 2. Please follow up with Dr. Isaacs in the next 2 weeks. 3. Remain compliant with treatment plan and medications 4. Return to the ER if you experience any problems DISCHARGE CONDITION: [Stable]. TIME SPENT ON DISCHARGE: 35 minutes Vital Signs/I&Os Vital Signs Date Time Temp Pulse Resp B/P (MAP) Pulse Ox O2 Delivery O2 Flow Rate FiO2 11/10/18 10:10 91 156/86 11/10/18 10:07 18 11/10/18 06:00 99.0 93 11/06/18 17:08 Room Air I&O- Last 24 Hours up to 6 AM 11/10/18 06:00 Intake Total 720 ml Balance 720 ml Laboratory Data Labs 24H Laboratory Tests 2 11/09/18 17:24: Bedside Glucose (Misc Panel) 125H 11/09/18 20:53: Bedside Glucose (Misc Panel) 163H 11/10/18 05:45: Nucleated Red Blood Cells % (auto) 0.0, Prothrombin Time 13.6, Prothromb Time International Ratio 1.07, Anion Gap 7L, Glomerular Filtration Rate > 60.0, Blood Urea Nitrogen 8, Creatinine 0.43L, Sodium Level 144, Potassium Level 3.8, Chloride Level 111H, Carbon Dioxide Level 26, Calcium Level 9.4, Aspartate Amino Transf (AST/SGOT) 14, Alanine Aminotransferase (ALT/SGPT) 13, Alkaline Phosphatase 62, Total Bilirubin 0.6, Total Protein 6.2L, Albumin 3.0L, Albumin/Globulin Ratio 0.94L CBC/BMP Laboratory Tests 11/10/18 05:45 Red Blood Count 3.82 L, Mean Corpuscular Volume 94.2, Mean Corpuscular Hemoglob in 31.9, Mean Corpuscular Hemoglobin Concent 33.9, Red Cell Distribution Width 11.9, Calcium Level 9.4, Aspartate Amino Transf (AST/SGOT) 14, Alanine Aminotransferase (ALT/SGPT) 13, Alkaline Phosphatase 62, Total Bilirubin 0.6, Total Protein 6.2 L, Albumin 3.0 L FSBS Laboratory Tests Test 11/09/18 17:24 11/09/18 20:53 Range/Units Bedside Glucose (Misc Panel) 125 163 83-110 MG/DL Discharge Medications Scheduled Ascorbic Acid (Vitamin C) 500 Mg Tablet, 500 MG PO QPM, (Reported) TAKES AT DINNERTIME Aspirin (Aspirin) 81 Mg Tab.chew, 81 MG PO QHS, (Reported) Atorvastatin Calcium (Atorvastatin Calcium) 40 Mg Tablet, 40 MG PO DAILY, (Reported) Gabapentin (Gabapentin) 100 Mg Capsule, 100 MG PO TID, (Reported) NEW MEDICATION, HAS NOT STARTED Gabapentin (Gabapentin) 300 Mg Capsule, 300 MG PO TID TAKE 1 CAP DAILY FOR 7 DAYS, THEN INCREASE TO 1 CAP TWICE DAILY FOR 14 DAYS, THEN INCREASE TO 1 CAP THREE TIMES DAILY Lidocaine/Prilocaine (Lidocaine-Prilocaine Cream) 2.5%/2.5% Cream..g., 1 APLCT TOP ASDIRECTED Megestrol Acetate (Megestrol Acetate) 400 Mg/10 Ml Oral.susp, 800 MG PO DAILY Metformin HCl (Metformin HCl ER) 500 Mg Tab.er.24h, 1,000 MG PO QPM, (Reported) Mv-Mn/Folic/Molina/Vit K/B Comp,C (Women's Daily Pack) 1 Each Tablet, 1 EACH PO QPM, (Reported) TAKES AT DINNERTIME Rock-3 Fatty Acids/Fish Oil (Rock 3 Fish Oil Softgel) 1 Each Capsule.dr, 1 CAP PO QPM, (Reported) TAKES AT DINNER TIME Propranolol HCl (Propranolol HCl) 10 Mg Tablet, 10 MG PO BID, (Reported) Scheduled PRN Hydrocodone/Acetaminophen (Hydrocodone-Acetamn 7.5-325/15) 15 Ml Solution, 10 ML PO Q4HP PRN for MODERATE PAIN (PS 5-7) Please take 10 ml by mouth every 4 hours as needed for moderate pain. Ondansetron HCl (Ondansetron HCl) 4 Mg Tablet, 1 TAB PO Q6HP PRN for nausea/vomiting Allergies Coded Allergies: amoxicillin (Verified Adverse Reaction, Mild, YEAST INFECTION IF HIGH DOSES, 11/05/18) clavulanic acid (Verified Adverse Reaction, Mild, YEAST INFECTION IF HIGH DOSES, 11/05/18) GME ATTESTATION GME ATTESTATION My faculty preceptor for this patient encounter was physically present during the encounter and was fully available. All aspects of the patient interview, examination, medical decision making process, and medical care plan development were reviewed and approved by the faculty preceptor. The faculty preceptor is aware and concurs with the plan as stated in the body of this note and will attest to such by his/her cosignature. ATTENDING NOTE I, Grace Soto, have independently examined this patient and performed my own physical exam, as well as reviewed the documentation and edited where necessary. I have discussed in detail with the resident / student the findings and plan of treatment as documented by the resident / student and edited their note. I agree with their findings and treatment plan and have edited their do cumentation. I will continue to follow the patient during this hospital stay. Time spend on discharge 35 minutes SONG GOLDBERG DO Nov 10, 2018 13:05 GRACE SOTO MD Nov 10, 2018 15:34
[2018-11-10] MEDS ORDERED: WARFARIN SOD 5 MG TAB PO ONE (17:00)
== END 2018-11-10 12:15 | disposition home or self-care (01) | DRG 948 ==
LOC: M ED 17:07 → M ED INP 17:08 → M MS5PR 21:35 → OBSVTOIN 11-07 10:54
PROVIDERS: ADMIT Internal Medicine; ATTEND Internal Medicine
DX: G89.3 Neoplasm related pain (acute) (chronic) (principal); C25.9 Malignant neoplasm of pancreas, unspecified; Z68.1 Body mass index [BMI] 19.9 or less, adult; E46 Unspecified protein-calorie malnutrition; E78.5 Hyperlipidemia, unspecified; E11.9 Type 2 diabetes mellitus without complications; Z79.82 Long term (current) use of aspirin; Z79.899 Other long term (current) drug therapy; Z88.0 Allergy status to penicillin; Z88.8 Allergy status to other drugs, medicaments and biological substances; Z87.891 Personal history of nicotine dependence; R64 Cachexia; F41.9 Anxiety disorder, unspecified; F40.240 Claustrophobia

== ENCOUNTER → 2018-11-13 | Outpatient (CLI) | payer MEDICARE ==
--- NOTE | 2018-11-06 19:46 | HPEPDOC ---
General Date of Admission 11/06/18 Date of Service: Nov 06, 2018 Primary Care Physician: DANILO MO NP Attending Physician: JAYLA ERIC DO Chief Complaint The patient is a 73-year-old female admitted with a reason for visit of Pancreatic Ca-Chemo. Source: Patient, Family Exam Limitations: No limitations Timing/Duration: Week(s) Severity: Severe History of Present Illness Patient 73 years old female with past medical history of type 2 diabetes, pancreatic cancer presented to the hospital with intractable left-sided back pain. She noted left severe back pain is located in the left flank and became progressively worse. Patient stated that for past few weeks intensity of the pain has been increased. Today patient started taking continue medications OxyContin but it didn't alleviate her pain. Of note, patient was recently diagnosed with pancreatic cancer stage IV, CT scan showed pancreatic mass 5 to 3 cm obstructing the pancreatic duct. Also patient was found to have 1.3 cm lesion on the liver. Dr. Partida oncologist planned to start chemotherapy on the next week. Home Medications Scheduled Ascorbic Acid (Vitamin C) 500 Mg Tablet, 500 MG PO QPM, (Reported) TAKES AT DINNERTIME Aspirin (Aspirin) 81 Mg Tab.chew, 81 MG PO QHS, (Reported) Atorvastatin Calcium (Atorvastatin Calcium) 40 Mg Tablet, 40 MG PO DAILY, (Reported) Gabapentin (Gabapentin) 300 Mg Capsule, 300 MG PO DAILY, (Reported) Lidocaine/Prilocaine (Lidocaine-Prilocaine Cream) 2.5%/2.5% Cream..g., 1 APLCT TOP ASDIRECTED Megestrol Acetate (Megestrol Acetate) 400 Mg/10 Ml Oral.susp, 800 MG PO DAILY Metformin HCl (Metformin HCl ER) 500 Mg Tab.er.24h, 1,000 MG PO QPM, (Reported) Mv-Mn/Folic/[place]ina/Vit K/B Comp,C (Women's Daily Pack) 1 Each Tablet, 1 EACH PO QPM, (Reported) TAKES AT DINNERTIME [place]-3 Fatty Acids/Fish Oil ([place] 3 Fish Oil Softgel) 1 Each Capsule.dr, 1 CAP PO QPM, (Reported) TAKES AT DINNER TIME Propranolol HCl (Propranolol HCl) 10 Mg Tablet, 10 MG PO BID, (Reported) Scheduled PRN Hydrocodone/Acetaminophen (Hydrocodone-Acetamn 7.5-325/15) 15 Ml Solution, 10 ML PO Q4HP PRN for MODERATE PAIN (PS 5-7) Please take 10 ml by mouth every 4 hours as needed for moderate pain. Ondansetron HCl (Ondansetron HCl) 4 Mg Tablet, 1 TAB PO Q6HP PRN for nausea/vomiting Allergies Coded Allergies: amoxicillin (Verified Adverse Reaction, Mild, YEAST INFECTION IF HIGH DOSES, 11/05/18) clavulanic acid (Verified Adverse Reaction, Mild, YEAST INFECTION IF HIGH DOSES, 11/05/18) Past Medical History Medical History Type 2 diabetes, pancreatic carcinoma stage IV Family History Both parents from heart attack, mother had diabetes Social History * Smoker: former Smoker Alcohol: Denies Drugs: denies A-FIB/CHADSVASC A-FIB History Current/History of A-Fib/PAF?: No Current PO Anticoag Therapy: No Review of Systems Constitutional: Reports: Fatigue; Denies: Chills Eyes: Denies: Pain, Vision change ENT: Denies: Head Aches, Ear Pain Skin: Denies: Rash, Lesions Pulmonary: Denies: Dyspnea Cardiovascular: Denies: Chest Pain, Palpitations Gastrointestinal: Reports: Abdominal Pain; Denies: Nausea, Vomiting Genitourinary: Denies: Dysuria, Frequency Hematologic: Denies: Bruising, Bleeding Excessively Endocrine: Denies: Polydipsia, Polyphagia Musculoskeletal: Denies: Neck Pain, Shoulder Pain Neurological: Denies: Weakness, Numbness Psych: Reports: Mood Normal Physical Examination General Exam: Positive: Alert, Cooperative Eye Exam: Positive: PERRLA, Conjunctiva & lids normal ENT Exam: Positive: Atraumatic Neck Exam: Positive: Supple; Negative: JVD Chest Exam: Positive: Clear to auscultation Heart Exam: Positive: Rate Normal Telemetry: Positive: No significant arrhythmia Abdomen Exam: Positive: BS Hypoactive, Soft, Other (left flank tenderness on palpation); Negative: Normal bowel sounds Extremity Exam: Negative: Clubbing Skin Exam: Negative: Nl turgor and temperature Neuro Exam: Positive: Strength at 5/5 X4 ext, Cranial Nerves 3-12 NL Psych Exam: Positive: Mental status NL Vital Signs hr 90 Assessment/Plan Patient is 73 years old female with past medical history of type 2 diabetes and pancreatic carcinoma stage IV presented to the hospital with intractable pain Problems (1) Intractable pain Status: Acute Problem Text: Morphine IV every 2 hours Dilaudid by mouth for severe pain (2) Pancreatic cancer Status: Acute Problem Text: Patient has been diagnosed with pancreatic cancer stage IV Oncologist planned to start chemotherapy on the next week (3) Diabetes mellitus Problem Text: Insulin sliding scale Diabetes diet Plan / VTE VTE Prophylaxis Ordered?: Yes JAYLA ERIC DO Nov 06, 2018 19:46
[~2018-11-13] MED LIST changes: +DEXTROSE 50% 50 ML SYRINGE IV PRN; +GABA-1171 PO; +GABA-843 PO; +GLUCAGON FOR INJ 1 MG VIAL (J1610) SC PRN; +GLUCOSE 4 GM CHEW TABLET PO PRN; +HEPARIN SOD (PORCINE) 5000 UNITS/ML VIAL SC SCH; +HYDR-4517 PO; +HYDR1SOL22 PO; +HYDROmorphone 2 MG TAB PO PRN; +HumaLOG INSULIN (NovoLOG) PER UNIT SC SCH; +LIDOCAINE 1% MDV 20ML VIAL As Ordered ONE; +MIDAZOLAM INJ 2 MG/2 ML VIAL (J2250) As Ordered ONE; +MORPHINE 4 MG/ML 1ML VIAL/SYRINGE (J2270) IV PRN; +ceFAZolin 1GM INJ (J0690 PER 500MG) As Ordered ONE; +diphenhydrAMINE INJ 50MG/ML VIAL (J1200) As Ordered ONE; +fentaNYL 100 MCG/2 ML INJECTION (J3010) As Ordered ONE
--- NOTE | 2018-11-13 09:53 | IRMSE ---
[facility] IR Moderate Sedation Eval. Date and Time Date: Nov 13, 2018 Time: 09:53 ASA Classification ASA Classification: II-Mild systemic disease Mallampati Score: I NPO: Yes Obstructive Sleep Apnea: No Interval Plan: moderate sedation NEREYDA ALBARADO MD Nov 13, 2018 09:53
--- NOTE | 2018-11-13 10:54 | POST-OPPD ---
Postoperative Procedure Note Date Of Procedure: Nov 13, 2018 Time Of Procedure: 10:52 PREOPERATIVE DIAGNOSIS: pancreatic ca POSTOPERATIVE DIAGNOSIS: pancreatic ca FINDINGS: normal right IJ PROCEDURE: right side port SURGEON: monie ANESTHESIA: moderate sedation ESTIMATED BLOOD LOSS: < 5 ml COMPLICATIONS: none POSTOPERATIVE CONDITION: stable NEREYDA ALBARADO MD Nov 13, 2018 10:54
[2018-11-13 13:50] VITALS: BP 129/60
--- NOTE | 2018-11-13 15:17 | REP ---
IR Ultrasound and fluoroscopy-guided port placement. IR Ultrasound of the neck. IR Moderate sedation. Clinical information: Pancreatic cancer . Physician: Dr. Billings. Procedure: The patient was advised of the benefits, risks, and alternatives of the procedure and informed consent was obtained. A time-out was performed with verification of the patient's name, MRN, site of procedure and type of procedure to be performed. The patient was positioned in the supine position on the angiographic table. The site was prepped and draped in the usual sterile fashion. Moderate sedation was performed by the physician including the presence of an independent trained observer who assisted and monitored the patient's level of consciousness and physiologic status. Following the administration of fentanyl and Versed , the physician spent 45 minutes of continuous face to face time with the patient. Ultrasound of the neck reveals a patent and compressible right internal jugular vein. A government employee radiograph reveals no gross abnormality. The neck and anterior chest wall were anesthetized with lidocaine. The right internal jugular vein was accessed using a microintroducer needle by a lateral approach. An 018 wire was advanced into the superior vena cava, the needle was removed and a microsheath was placed. An Amplatz wire was then passed into the inferior vena cava. An incision at the internal jugular vein access site and anterior chest wall were made using a scalpel. An incision was made at the anterior chest wall. A small pocket was created using a combination of blunt and sharp dissection. A tunneling device was then used to pass the catheter from the pocket to the neck puncture site. An 8-[employer] smart power port was then positioned in the pocket. The catheter was then measured and cut. The introducer sheath was exchanged for a peel-away sheath. The catheter was passed through the peel-away sheath into the internal jugular vein and the peel-away sheath was removed. The port tip was positioned at the cavo atrial junction. The port was then accessed with a Mack needle. The port flushes and aspirates well. The puncture site in the neck was closed. The chest wall incision was then closed with 2-0 Vicryl and 4-0 Monocryl. Glue and Steri-Strips were applied. A sterile dressing was then applied. The patient tolerated the procedure well and was returned to the PRU in stable condition. Estimated blood loss: <5 ml. Complications: None. Conclusion: 1. Successful placement of an 8-[employer] smart power port via the right internal jugular vein. The port is ready for immediate use. 2. Patient to follow up in IR clinic in 2 weeks. Thank you for this referral. Electronically Signed by Esperanza Billings MD 11/13/2018 03:15 P
== END ==
LOC: M IRPRO 08:51
PROVIDERS: ATTEND Internal Medicine Hematology & Oncology
DX: C25.9 Malignant neoplasm of pancreas, unspecified (principal)
CPT/HCPCS: 36571; 99152; 99153; C1769; C1788; C1894; J0690; J2250; J3010

== ENCOUNTER → 2018-12-02 | Outpatient (POV) | payer MEDICARE ==
[~2018-12-02] VITALS: Ht 167.6 cm; Wt 51.4 kg
[~2018-12-02] MED LIST changes: -DEXTROSE 50% 50 ML SYRINGE IV PRN; -GLUCAGON FOR INJ 1 MG VIAL (J1610) SC PRN; -GLUCOSE 4 GM CHEW TABLET PO PRN; -HEPARIN SOD (PORCINE) 5000 UNITS/ML VIAL SC SCH; -HYDROmorphone 2 MG TAB PO PRN; -HumaLOG INSULIN (NovoLOG) PER UNIT SC SCH; -LIDOCAINE 1% MDV 20ML VIAL As Ordered ONE; +LOMO2.5T PO; -MIDAZOLAM INJ 2 MG/2 ML VIAL (J2250) As Ordered ONE; -MORPHINE 4 MG/ML 1ML VIAL/SYRINGE (J2270) IV PRN; -ceFAZolin 1GM INJ (J0690 PER 500MG) As Ordered ONE; -diphenhydrAMINE INJ 50MG/ML VIAL (J1200) As Ordered ONE; -fentaNYL 100 MCG/2 ML INJECTION (J3010) As Ordered ONE
[2018-12-02 10:00] VITALS: BP 100/59
--- NOTE | 2018-12-02 15:44 | IRPN ---
[facility] IR Progress Note IR Progress Note DATE: Dec 02, 2018 FOLLOW-UP: 2 weeks status post port placement. No fevers or chills. Doing well. History of pancreatic cancer. No real epigastric pain however does have pain in the back radiating to the front. No recent trauma. Wonders if this may be related to the pancreatic cancer and if it might be helped with a celiac block. No nausea or vomiting. ON EXAMINATION: Port site looks good. No discharge. No pain, redness or tenderness. Healing well. Abdomen: Soft nontender. No epigastric tenderness. Back: No skin changes. No focal midline bony tenderness. Imaging: I personally reviewed the CT with contrast from September 2018. Pancreatic mass encroaching and surrounding the region of the celiac plexus. IMPRESSION: 1. Doing well couple of weeks status post port placement. 2. Back pain radiating to the front. This may be related to the pancreatic mass and celiac plexus involvement. She is using narcotics for the pain. I'd like to do a test celiac block to see if the pain is relieved before proceeding with alcohol ablation of the celiac plexus. We will schedule the patient for this procedure under moderate sedation. Thank you for this referral. Allergies Coded Allergies: amoxicillin (Verified Adverse Reaction, Mild, YEAST INFECTION IF HIGH DOSES, 11/05/18) clavulanic acid (Verified Adverse Reaction, Mild, YEAST INFECTION IF HIGH DOSES, 11/05/18) VS,Fishbone, I+O VS, Fishbone, I+O Vital Signs Date Time Temp Pulse Resp B/P (MAP) Pulse Ox O2 Delivery O2 Flow Rate FiO2 12/02/18 10:00 98.0 73 16 100/59 (73) 99 NEREYDA ALBARADO MD Dec 02, 2018 15:44
== END ==
LOC: M IRPOV 09:02
PROVIDERS: ATTEND Radiology Diagnostic Radiology
DX: Z45.2 Encounter for adjustment and management of vascular access device (principal); C25.9 Malignant neoplasm of pancreas, unspecified; Z88.1 Allergy status to other antibiotic agents; Z88.8 Allergy status to other drugs, medicaments and biological substances

== ENCOUNTER → 2018-12-10 | Outpatient (CLI) | payer MEDICARE ==
[~2018-12-10] MED LIST changes: +BUPIVACAINE HCL 0.5% 10 ML VIAL As Ordered ONE; +ETHANOL ALCOHOL 98% INJ 5ML (DEHYDRATED) As Ordered ONE; +ISOVUE-300 61% 50ML VIAL (Q9967) As Ordered ONE; +LIDOCAINE 1% MDV 20ML VIAL As Ordered ONE; +MIDAZOLAM INJ 2 MG/2 ML VIAL (J2250) As Ordered ONE; +diphenhydrAMINE INJ 50MG/ML VIAL (J1200) As Ordered ONE; +fentaNYL 100 MCG/2 ML INJECTION (J3010) As Ordered ONE
--- NOTE | 2018-12-10 09:02 | IRHP ---
[facility] IR Pre-Procedure H & P General Date of Service: Dec 10, 2018 Procedure: Same Day Surgery Interval History and Physical I have seen the patient and reviewed last H & P performed within 30 days. There is no significant interval change. History of Present Illness Chief Complaint The patient is a 73-year-old female admitted with a reason for visit of Pancreatic Ca, Pain. PRE-PROCEDURE DIAGNOSIS: pancreatic ca HEART: normal rate. LUNGS: normal breathing at rest. ASA Classification ASA Classification: II-Mild systemic disease Mallampati Score: I NPO: Yes Problems with prior sedation: No Obstructive Sleep Apnea: No Plan moderate sedation Allergies Coded Allergies: amoxicillin (Verified Adverse Reaction, Mild, YEAST INFECTION IF HIGH DOSES, 11/05/18) clavulanic acid (Verified Adverse Reaction, Mild, YEAST INFECTION IF HIGH DOSES, 11/05/18) Home Medications Scheduled Ascorbic Acid (Vitamin C), 500 MG PO QPM, (Reported) Aspirin (Aspirin), 81 MG PO QHS, (Reported) Atorvastatin Calcium (Atorvastatin Calcium), 40 MG PO DAILY, (Reported) Diphenoxylate HCl/Atropine (Lomotil 2.5-0.025 mg Tablet), 1 TAB PO TID Gabapentin (Gabapentin), 300 MG PO TID Lidocaine/Prilocaine (Lidocaine-Prilocaine Cream), 1 APLCT TOP ASDIRECTED Megestrol Acetate (Megestrol Acetate), 800 MG PO DAILY Metformin HCl (Metformin HCl ER), 1,000 MG PO QPM, (Reported) Mv-Mn/Folic/Molina/Vit K/B Comp,C (Women's Daily Pack), 1 EACH PO QPM, (Reported) Dent-3 Fatty Acids/Fish Oil (Dent 3 Fish Oil Softgel), 1 CAP PO QPM, (Reported) Propranolol HCl (Propranolol HCl), 10 MG PO BID, (Reported) Scheduled PRN Hydrocodone/Acetaminophen (Hydrocodone-Acetamn 7.5-325/15), 10 ML PO Q4HP PRN for MODERATE PAIN (PS 5-7) Ondansetron HCl (Ondansetron HCl), 1 TAB PO Q6HP PRN for nausea/vomiting VS, I&O, 24H, Fishbone Vital Signs/I&O Vital Signs Date Time Temp Pulse Resp B/P (MAP) Pulse Ox O2 Delivery O2 Flow Rate FiO2 12/10/18 08:02 96.7 79 18 95 NEREYDA ALBARADO MD Dec 10, 2018 09:02
[2018-12-10 11:15] VITALS: BP 153/77
--- NOTE | 2018-12-11 08:59 | REP ---
IR CT guided celiac block. IR moderate sedation. Clinical information: Pancreatic cancer. Back pain radiating to the front. Atypical pain. Temporary celiac block to check if she is a candidate for permanent alcohol oblation. Physician: Dr. Billings. Procedure: The patient was advised of the benefits, risks and alternatives of the procedure and informed consent was obtained. The time-out was performed with verification of the patient's name, MRN, site of procedure and type of procedure to be performed. The patient was positioned in the prone position on the table. The site was prepped and draped in the usual sterile fashion. Moderate sedation was not performed due to the patient's respiratory status. The physician spent 45 minutes of continuous face to face time with the patient. Preliminary CT of the upper abdomen demonstrates tumor infiltration along the celiac and superior mesenteric axis. The anticipated puncture site was anesthetized with lidocaine. A 21 gauge Chiba needle was inserted through the left paravertebral space, dorsal and caudal to the left celiac axis, under intermittent CT guidance. Contrast injection and follow-up CT demonstrates good position of needle and free spillage of contrast around the celiac axis. 20 ml Bupivicaine was injected in this location. The needle removed, pressure held and hemostasis achieved. A sterile dressing was applied to the site. The patient tolerated the procedure well and was returned to the PRU in stable condition. EBL: < 5 ml. Complications: None. Conclusion: 1. 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 2. Successful CT -guided temporary celiac block. If patient achieves pain relief from this we will do permanent alcohol ablation of the celiac plexus. Thank you for this referral. Electronically Signed by Esperanza Billings MD 12/11/2018 08:57 A
== END ==
LOC: M IRPRO 07:52
PROVIDERS: ATTEND Radiology Diagnostic Radiology
DX: C25.9 Malignant neoplasm of pancreas, unspecified (principal); M54.9 Dorsalgia, unspecified
CPT/HCPCS: 64530; 77012; J2250; J3010; Q9967

== ENCOUNTER → 2019-01-14 | Outpatient (CLI) | payer MEDICARE ==
[~2019-01-14] MED LIST changes: -ETHANOL ALCOHOL 98% INJ 5ML (DEHYDRATED) As Ordered ONE; +ETHANOL ALCOHOL 98% INJ 5ML (DEHYDRATED) XX ONE; +MORP10SO PO; +ONDANSETRON 4MG/2ML VIAL (J2405) As Ordered ONE; +PROMETHAZINE INJ 25 MG/ML VIAL (J2550) As Ordered ONE
--- NOTE | 2019-01-14 09:54 | IRMSE ---
[facility] IR Moderate Sedation Eval. Date and Time Date: Jan 14, 2019 Time: 09:54 ASA Classification ASA Classification: II-Mild systemic disease Mallampati Score: II NPO: Yes Obstructive Sleep Apnea: No Interval Plan: moderate sedation NEREYDA ALBARADO MD Jan 14, 2019 09:54
[2019-01-14 13:19] VITALS: BP 156/64
--- NOTE | 2019-01-15 14:23 | POST-OPPD ---
Postoperative Procedure Note Date Of Procedure: Jan 14, 2019 Time Of Procedure: 10:33 PREOPERATIVE DIAGNOSIS: pancreatic ca. pain POSTOPERATIVE DIAGNOSIS: pancreatic ca. pain FINDINGS: mild tumor infiltration around celiac artery PROCEDURE: celiac block with alcohol SURGEON: monie ANESTHESIA: mod sed ESTIMATED BLOOD LOSS: < 5 ml COMPLICATIONS: none POSTOPERATIVE CONDITION: stable NEREYDA ALBARADO MD Jan 15, 2019 14:23
--- NOTE | 2019-01-15 16:32 | REP ---
IR CT guided celiac block . IR moderate sedation. Clinical information: Pancreatic cancer. Pain. Presents for permanent celiac block. Physician: Dr. Billings. Procedure: The patient was advised of the benefits, risks and alternatives of the procedure and informed consent was obtained. The time-out was performed with verification of the patient's name, MRN, site of procedure and type of procedure to be performed. The patient was positioned in the prone position on the table. The site was prepped and draped in the usual sterile fashion. Moderate sedation was performed by the physician including the presence of an independent trained observer who assisted in monitoring the patient's level of consciousness and physiologic status. Following the administration of Versed and Fentanyl, the physician spent 60 minutes of continuous face to face time with the patient. Preliminary CT of the of the abdomen demonstrates the origin of the celiac artery and superior mesenteric artery. There is some tumor infiltration in this region. The anticipated puncture site was anesthetized with lidocaine. A 22 gauge Chiba needle was advanced under intermittent CT guidance, in a left paravertebral fashion to the left celiac ganglion. Contrast was injected and a follow-up CT demonstrates expected layering of contrast. No contrast within any organs or vasculature. 0.5% of Bupivicaine was injected through this needle into the left celiac ganglion and this was followed with 10 ml absolute alcohol. The right sided anticipated puncture site was anesthetized with lidocaine. A 22 gauge Chiba needle was advanced under intermittent CT guidance, in a right paravertebral fashion to the right celiac ganglion. Contrast was injected and a follow-up CT demonstrated expected distribution of contrast. No contrast within organs or vasculature. 0.5% of bupivacaine was injected through this needle into the right celiac ganglion this was followed with 10 ml absolute alcohol. All needles were removed, pressure held and hemostasis achieved. A sterile dressing was applied to the site. The patient tolerated the procedure well and was returned to the PRU in stable condition. EBL: < 5 ml. Complications: None. Impression: 1. CT demonstrates mild tumor infiltration along the celiac ganglia. 2. Successful CT-guided celiac neurolysis with alcohol. Patient to follow up in IR clinic in 3 months. Thank you for this referral. Electronically Signed by Esperanza Billings MD 01/15/2019 04:30 P
== END ==
LOC: M IRPRO 08:22
PROVIDERS: ATTEND Radiology Diagnostic Radiology
DX: C25.9 Malignant neoplasm of pancreas, unspecified (principal)
CPT/HCPCS: 64680; 77012; 99152; 99153; J2250; J3010; Q9967

== ENCOUNTER → 2019-03-06 | Outpatient (REF) | payer MEDICARE ==
[~2019-03-06] MED LIST changes: -BUPIVACAINE HCL 0.5% 10 ML VIAL As Ordered ONE; -ETHANOL ALCOHOL 98% INJ 5ML (DEHYDRATED) XX ONE; -ISOVUE-300 61% 50ML VIAL (Q9967) As Ordered ONE; -LIDOCAINE 1% MDV 20ML VIAL As Ordered ONE; -MIDAZOLAM INJ 2 MG/2 ML VIAL (J2250) As Ordered ONE; -ONDANSETRON 4MG/2ML VIAL (J2405) As Ordered ONE; -PROMETHAZINE INJ 25 MG/ML VIAL (J2550) As Ordered ONE; -diphenhydrAMINE INJ 50MG/ML VIAL (J1200) As Ordered ONE; -fentaNYL 100 MCG/2 ML INJECTION (J3010) As Ordered ONE
[2019-03-06 18:35] LABS: BASO # 0.1 10^3/uL (0.0-0.2); BASO % 0.6 % (0.0-1.0); EOS # 0.2 10^3/uL (0.0-0.5); EOS % 1.9 % (0.0-3.0); HEMATOCRIT 35.8 % (36.0-47.0); HEMOGLOBIN 10.7 g/dl (12.0-15.5); LYMPH # 1.6 10^3/uL (1.5-5.0); LYMPH % 16.2 % (24.0-44.0); MEAN CORPUSCULAR HEMOGLOBIN 34.3 pg (27.0-33.0); MEAN CORPUSCULAR HGB CONC 29.9 g/dl (32.0-36.5); MONO % 9.6 % (0.0-5.0); NEUTROPHILS % 70.7 % (36.0-66.0); PLATELET COUNT, AUTOMATED 260 10^3/uL (150-450); RED BLOOD COUNT 3.12 10^6/uL (4.00-5.40); WHITE BLOOD COUNT 9.9 10^3/uL (4.0-10.0)
[2019-03-06 18:40] LABS: MEAN CORPUSCULAR VOLUME 114.7 fl (80.0-96.0)
[2019-03-06 18:55] LABS: HEMOGLOBIN A1c 7.4 %
[2019-03-06 18:58] LABS: ALBUMIN 3.2 GM/DL (3.2-5.2); ALT/SGPT 23 U/L (12-78); BILIRUBIN,TOTAL 0.4 MG/DL (0.2-1.0); BLOOD UREA NITROGEN 22 MG/DL (7-18); CALCIUM LEVEL 8.4 MG/DL (8.8-10.2); CARBON DIOXIDE LEVEL 26 MEQ/L (21-32); CHLORIDE LEVEL 108 MEQ/L (98-107); GLOMERULAR FILTRATION RATE > 60.0 (>39); GLUCOSE, FASTING 261 MG/DL (70-100); POTASSIUM SERUM 3.9 MEQ/L (3.5-5.1); SODIUM LEVEL 142 MEQ/L (136-145); TOTAL PROTEIN 6.7 GM/DL (6.4-8.2)
[2019-03-06 19:02] LABS: PLATELET ESTIMATE NORMAL (NORMAL)
== END ==
LOC: M SFHCPLAZ 15:56
PROVIDERS: ATTEND Nurse Practitioner Family
DX: E11.9 Type 2 diabetes mellitus without complications (principal); E55.9 Vitamin D deficiency, unspecified; C25.9 Malignant neoplasm of pancreas, unspecified

== ENCOUNTER → 2019-03-17 | Outpatient (CLI) | payer MEDICARE ==
[~2019-03-17] MED LIST changes: +ONDA-83 PO; -ONDA4TAB5 PO
--- NOTE | 2019-03-17 13:36 | REP ---
PET/CT: History: Restaging malignant neoplasm body of the pancreas. Status post chemotherapy. Comparison CT study of the abdomen October 01, 2018. TECHNIQUE: 45 minutes following the intravenous injection of a 8.25 mCi dose of F-18 FDG, three-dimensional PET scintigraphy is acquired from the skull base to the proximal thighs. Triplanar noncontrast CT scanning is acquired through the same anatomic range for attenuation correction, and image registration with scan parameters optimized to minimize radiation exposure to the patient. PET scintigraphy and CT datasets were fused and displayed on a workstation with multiplanar and projection display capability. PET/CT Findings: Head and neck soft tissues are unremarkable. There is no evidence of hypermetabolic hilar or mediastinal adenopathy. A right-sided [id number] catheter is seen. There is a somewhat linear opacity in the lingular segment of the left upper lobe suggesting atelectasis. This shows mildly increased accumulation of radiotracer although not in hypermetabolic range. Maximum standard uptake value 1.55. The morphology suggests atelectasis or inflammatory change. No other abnormal hypermetabolic uptake is seen in the chest. There is right apical pleuroparenchymal fibrosis without hypermetabolic uptake. In the abdomen, there is hypermetabolic uptake throughout the distribution of the pancreatic mass in the body and tail of the pancreas. Maximum standard uptake value here is 6.20. Uptake is seen surrounding the area of the celiac axis and superior mesenteric artery. There is mildly hypermetabolic uptake in the left periaortic region. There is no abnormal hypermetabolic uptake visible in the liver. No other abdominal hypermetabolic uptake is seen. No skeletal hypermetabolic uptake is observed. Impression: Hypermetabolic uptake in the pancreatic bed and in the regional peripancreatic disease seen by previous CT. There is a non-hypermetabolic area of what appears to be discoid atelectasis in the lingular segment of the left upper lobe. Right apical pleuroparenchymal fibrosis is seen without hypermetabolic uptake. Otherwise negative. Electronically Signed by Mamadou Germain MD 03/17/2019 02:40 P
== END ==
LOC: M PLARAD 07:34
PROVIDERS: ATTEND Internal Medicine Hematology & Oncology
DX: C25.1 Malignant neoplasm of body of pancreas (principal); Z92.21 Personal history of antineoplastic chemotherapy
CPT/HCPCS: 78815; A9552

== ENCOUNTER → 2019-03-26 | Outpatient (CLI) | payer MEDICARE ==
[~2019-03-26] MED LIST changes: +GASTROGRAFIN SOLUTION 30ML (Q9963) As Ordered ONE; +ISOVUE-370 76% 100ML VIAL (Q9967) As Ordered ONE; +MARI2.5C PO; +OMEP-218 PO
--- NOTE | 2019-03-26 16:20 | REP ---
CT of the abdomen and pelvis without and with IV contrast: Comparison is 10/01/2018. The visualized lung morelos are unremarkable. There is 1.2 cm hypodense nodule anteriorly in the lateral segment of the hepatic left lobe as previously with peripheral enhancement and this may represent an hemangioma. No other hepatic lesions are identified. The gallbladder is unremarkable. There is a hypodense mass in the body of the pancreas today measuring 1.7 x 2.3 cm, this previously measured 3 x 5 cm. There is soft tissue fullness surrounding the celiac artery and SMA, decreased in size. The pancreatic duct is again slightly dilated as previously, particularly in the tail of the pancreas. The body and the tail of the pancreas do not enhance as well as the of the pancreas. This may represent a decreased vascular flow in the body and tail of the pancreas. There is no CT evidence of pancreatitis. The adrenals are unremarkable. 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 There is focal renal cortical scarring laterally in the left kidney, unchanged. The kidneys are otherwise unremarkable. Abdominal aorta is unremarkable. There is no periaortic adenopathy or mass. The bowel and mesentery are unremarkable. There is no ascites. No mesenteric adenopathy. Pelvis: The pelvis is not included on the prior scan. The the ovarian veins are dilated bilaterally, possibly pelvic congestion syndrome. This should be correlated with symptoms. There is no adenopathy or ascites. The uterus and adnexa are otherwise unremarkable. The bladder is unremarkable. There are no lytic, blastic or destructive skeletal changes. Impression: The pancreatic mass has decreased in size. The soft tissue fullness surrounding the celiac artery and SMA and decreased in size. The pancreatic duct is mildly dilated in the pancreatic body and tail, unchanged. The single hepatic nodule is unchanged in size, possibly an hemangioma. Liver is otherwise unremarkable. There is no abdominal or pelvic adenopathy or ascites. The ovarian veins are dilated bilaterally, greater on the left, possibly pelvic congestion syndrome, correlate with symptoms. There are no lytic, blastic or destructive skeletal changes. Electronically Signed by Rohan Strange MD 03/26/2019 04:12 P
== END ==
LOC: M RAD 12:17
PROVIDERS: ATTEND Internal Medicine Hematology & Oncology
DX: C25.9 Malignant neoplasm of pancreas, unspecified (principal)

== ENCOUNTER → 2019-05-01 | Outpatient (CLI) | payer MEDICARE ==
[~2019-05-01] MED LIST changes: +ATIV1TAB7 PO; -GASTROGRAFIN SOLUTION 30ML (Q9963) As Ordered ONE; -ISOVUE-370 76% 100ML VIAL (Q9967) As Ordered ONE; +PROHANCE 279.3MG/ML 15ML VIAL (A9576) As Ordered ONE
--- NOTE | 2019-05-01 18:38 | REPVR ---
PROCEDURE INFORMATION: Exam: MR Head Without and With Contrast Exam date and time: 05/01/2019 5:39 PM Age: 73 years old Clinical indication: Pain; Headache not specified; Patient HX: RT hand tremor, increased TURCIOS one month TECHNIQUE: Imaging protocol: MR of the head without and with intravenous contrast. Contrast material: PROHANCE; Contrast volume: 12 ml; Contrast route: 22G; COMPARISON: No relevant prior studies available. FINDINGS: Brain: Nonspecific T2/FLAIR hyperintensities of the periventricular and deep subcortical white matter, most likely secondary to chronic small vessel ischemic change. No intracranial hemorrhage or extra-axial fluid collection. No evidence of mass effect or midline shift. No restricted diffusion to suggest acute infarct. No areas of abnormal enhancement. Ventricles: Prominence of the ventricles and sulci, likely attributed to parenchymal volume loss. Bones/joints: Unremarkable. Soft tissues: Unremarkable. Sinuses: Unremarkable. Mastoid air cells: Partial opacification of right inferior mastoid air cells. Orbits: Unremarkable. IMPRESSION: 1. No acute intracranial pathology. 2. Partial opacification of right inferior mastoid air cells. 3. Other chronic findings, as above. Electronically signed by: Austin Marmolejo On 05/01/2019 18:37:58 PM
== END ==
LOC: M RAD 15:55
PROVIDERS: ATTEND Internal Medicine Hematology & Oncology
DX: R25.1 Tremor, unspecified (principal); C25.9 Malignant neoplasm of pancreas, unspecified
CPT/HCPCS: 70553; A9576

== ENCOUNTER → 2019-05-25 | Outpatient (CLI) | payer MEDICARE ==
[~2019-05-25] MED LIST changes: -PROHANCE 279.3MG/ML 15ML VIAL (A9576) As Ordered ONE
--- NOTE | 2019-05-25 19:56 | REP ---
PET/CT: History: Restaging pancreatic ductal carcinoma. Treated with chemotherapy. Celiac nerve block. Comparisons: Comparison PET-CT study March 17, 2019. Comparison CT abdomen and pelvis March 26, 2019. TECHNIQUE: 50 minutes following the intravenous injection of a 8.11 mCi dose of F-18 FDG, three-dimensional PET scintigraphy is acquired from the skull base to the proximal thighs. Triplanar noncontrast CT scanning is acquired through the same anatomic range for attenuation correction, and image registration with scan parameters optimized to minimize radiation exposure to the patient. PET scintigraphy and CT datasets were fused and displayed on a workstation with multiplanar and projection display capability. PET/CT Findings: There is persistent hypermetabolic uptake in the body and tail of the pancreas mass which was observed previously. This appears improved in relative avidity although slightly, maximum standard uptake value is 5.01, previously 6.20. This portion of the body and tail of the pancreas are slightly thicker than on the CT study done previously 17 March 2019. The body of the pancreas previously measured 1.9 cm in anteroposterior dimension, currently 3.0 cm. The tail measured 2.3 cm, currently 2.2 cm. There is a focus of hypermetabolic uptake which appears to be along the posterior wall of the stomach adjacent to the pancreatic tail. This is similar in avidity to normal gastrointestinal mucosal uptake and there is no observable mass here. This is most consistent with normal physiologic gastric wall mucosal uptake. No new focus of hypermetabolic uptake is seen. There is some residual hypermetabolic periaortic rocky uptake at the level of the pancreas, maximum standard uptake value 3.52. There is minimal amount of nonhypermetabolic ascites in the pelvic reflections. No abnormal skeletal hypermetabolic uptake is seen. No abnormal uptake is seen within the chest. Impression: Slightly improved degree of uptake in the pancreatic body and tail. The pancreatic body is a little thicker. Stable left periaortic uptake. Small amount of new ascites in the pelvic reflections. Electronically Signed by Mamadou Germain MD 05/26/2019 10:16 A
== END ==
LOC: M PLARAD 12:24
PROVIDERS: ATTEND Internal Medicine Hematology & Oncology
DX: C25.3 Malignant neoplasm of pancreatic duct (principal); R18.8 Other ascites
CPT/HCPCS: 78815; A9552

== ENCOUNTER → 2019-05-25 | Outpatient (REF) | payer MEDICARE ==
[2019-05-25 17:35] LABS: HEMOGLOBIN A1c 7.9 %
[2019-05-25 17:37] LABS: ALBUMIN 3.1 GM/DL (3.2-5.2); ALT/SGPT 33 U/L (12-78); BILIRUBIN,TOTAL 1.2 MG/DL (0.2-1.0); BLOOD UREA NITROGEN 11 MG/DL (7-18); CALCIUM LEVEL 8.9 MG/DL (8.8-10.2); CARBON DIOXIDE LEVEL 28 MEQ/L (21-32); CHLORIDE LEVEL 103 MEQ/L (98-107); CHOLESTEROL LEVEL 127 MG/DL (<200); CHOLESTEROL RISK RATIO 3.628 (<5); CREATININE FOR GFR 0.62 MG/DL (0.55-1.30); GLOMERULAR FILTRATION RATE > 60.0 (>39); GLUCOSE, FASTING 113 MG/DL (70-100); HDL CHOLESTEROL 35 MG/DL (>40); LDL CHOLESTEROL 54 MG/DL (<100); NON-HDL-C 92 MG/DL; POTASSIUM SERUM 3.7 MEQ/L (3.5-5.1); SODIUM LEVEL 140 MEQ/L (136-145); TOTAL PROTEIN 6.2 GM/DL (6.4-8.2); TRIGLYCERIDES LEVEL 189 MG/DL (<150)
[2019-05-25 18:11] LABS: CREATININE, URINE 36.4 MG/DL; MALB URINE SIEMENS 17.2 MG/L; MAU/CREAT RATIO 47.2 MCG/MG (0.0-30.0)
== END ==
LOC: M SFHCPLAZ 15:04
PROVIDERS: ATTEND Nurse Practitioner Family
DX: E11.9 Type 2 diabetes mellitus without complications (principal); E78.2 Mixed hyperlipidemia

== ENCOUNTER → 2019-05-26 | Outpatient (CLI) | payer MEDICARE ==
[~2019-05-26] MED LIST changes: +GASTROGRAFIN SOLUTION 30ML (Q9963) As Ordered ONE; +ISOVUE-370 76% 100ML VIAL (Q9967) As Ordered ONE
--- NOTE | 2019-05-26 15:48 | REP ---
REASON: History of pancreatic ductal carcinoma. PRIORS: No priors CT with contrast for comparison. Low dose screening CT examination of the chest 01/09/2018 was reviewed. CONTRAST: 100 mL Isovue 370. There is no mediastinal or hilar adenopathy. There are no pleural or pericardial effusions. Please see the CT examination of the abdomen and pelvis report for description of the imaged upper abdomen. Bone window technique throughout the exam shows no evidence of a lytic or blastic osseous lesion. Evaluation of the lung morelos shows stable appearing biapical pleuroparenchymal scarring. No definite new abnormal nodules, masses, or opacities have developed. IMPRESSION: There is no evidence of acute intrathoracic disease. Findings as described above. Electronically Signed by Gera Sosa DO 05/26/2019 04:20 P
--- NOTE | 2019-05-26 16:10 | REP ---
HISTORY: Assess chemotherapeutic response. Patient has history of pancreatic carcinoma. CONTRAST: 100 mL of Isovue-370. The liver and spleen are unchanged. The adrenal glands and kidneys are unchanged. There is no significant change in the appearance of the abdominal aorta or periaortic regions. There is evidence of mild left-sided periaortic adenopathy, status quo. The pancreas has not changed significantly in its size or morphologic appearance, however, the relatively well demarcated focal area of low density seen previously in the pancreatic body is much more poorly demarcated today. In addition, there is severe compression of the portosplenic confluence representing a change from the prior exam. There is also evidence of low density surrounding the proximal portal vein as it courses through the pancreatic mass or just beneath it. There is no evidence of free air within the abdomen. There is no evidence of intraabdominal mesenteric adenopathy. There is a small amount of free fluid trapped within the leafs of the small bowel mesentery particularly in the right upper quadrant and this represents a change from the prior exam. There is no change in the appearance of the gallbladder. There is no significant change in the appearance of the bowel loops. CT PELVIS: There is a moderate amount of free fluid in the pelvis. There is no change in the appearance of the pelvic bowel loops. No pelvic sidewall or inguinal adenopathy has developed. Bone window technique throughout the examination shows no significant change in the appearance of the osseous structures. No lytic or blastic lesions appear to have developed. IMPRESSION: 1. Although the overall size and morphologic appearance of the pancreas has not changed significantly, there is evidence of pancreatic edema which is causing compression of nearby structures as described above. In addition, there is periportal edema which represents a change from the prior exam as described above. Whether these findings represent an overall improvement of overall mass lesional load or simply represents increased edema from treatment cannot be stated with certainty and needs to be correlated clinically. The retroperitoneal adenopathy particularly periaortic has increased slightly and there is now a small amount of fluid seen trapped in the leaves of the small bowel mesentery as described above. 2. There is a moderate amount of free pelvic fluid which represents a change from the prior exam. 3. Other findings as described above. Electronically Signed by Gera Sosa DO 05/26/2019 04:20 P
== END ==
LOC: M RAD 12:26
PROVIDERS: ATTEND Internal Medicine Medical Oncology
DX: C25.3 Malignant neoplasm of pancreatic duct (principal)
CPT/HCPCS: 71260; 74178; Q9963; Q9967

== ENCOUNTER 2019-06-05 09:55 | Emergency (ER) | payer MEDICARE ==
[~2019-06-05] VITALS: Ht 167.6 cm; Wt 60.0 kg
[~2019-06-05 09:55] MED LIST changes: -GASTROGRAFIN SOLUTION 30ML (Q9963) As Ordered ONE; -ISOVUE-370 76% 100ML VIAL (Q9967) As Ordered ONE
[2019-06-05] MEDS ORDERED: SODIUM CHLORIDE 0.9% INJ 10 ML SYR IV PRN (10:15)
[2019-06-05 10:41] LABS: HEMATOCRIT 26.6 % (36.0-47.0); HEMOGLOBIN 8.4 g/dl (12.0-15.5); MEAN CORPUSCULAR HEMOGLOBIN 31.6 pg (27.0-33.0); MEAN CORPUSCULAR HGB CONC 31.6 g/dl (32.0-36.5); PLATELET COUNT, AUTOMATED 123 10^3/uL (150-450); RED BLOOD COUNT 2.66 10^6/uL (4.00-5.40); WHITE BLOOD COUNT 18.1 10^3/uL (4.0-10.0)
[2019-06-05 10:47] LABS: APPEARANCE, URINE HAZY (CLEAR); BACTERIA, URINE AUTO 3+ (NEGATIVE); BILIRUBIN, URINE AUTO NEGATIVE (NEGATIVE); BLOOD, URINE BLOOD 1+ (NEGATIVE); COLOR, URINE YELLOW (YELLOW); GLUCOSE, URINE (UA) AUTO NEGATIVE (NEGATIVE); KETONE, URINE AUTO NEGATIVE (NEGATIVE); LEUKOCYTE ESTERASE, URINE AUTO 2+ (NEGATIVE); MUCUS, URINE SMALL (NEGATIVE); NITRITE, URINE AUTO POSITIVE (NEGATIVE); PROTEIN, URINE AUTO NEGATIVE (NEGATIVE); RBC, URINE AUTO 11 /HPF (0-3); RENAL EPITHELIAL CELLS 1 /HPF; SPECIFIC GRAVITY URINE AUTO 1.016 (1.002-1.035); SQUAMOUS EPITHELIAL CELL UR AU 0 /HPF (0-6); UROBILINOGEN, URINE AUTO 0.2 mg/dL (0.0-2.0); WBC, URINE AUTO 39 /HPF (0-3)
[2019-06-05 11:10] LABS: ALBUMIN 2.9 GM/DL (3.2-5.2); ALT/SGPT 26 U/L (12-78); BILIRUBIN,DIRECT 0.2 MG/DL (0.0-0.2); BLOOD UREA NITROGEN 12 MG/DL (7-18); CALCIUM LEVEL 8.1 MG/DL (8.8-10.2); CARBON DIOXIDE LEVEL 29 MEQ/L (21-32); CHLORIDE LEVEL 107 MEQ/L (98-107); CREATININE FOR GFR 0.56 MG/DL (0.55-1.30); GLOMERULAR FILTRATION RATE > 60.0 (>39); GLUCOSE, FASTING 151 MG/DL (70-100); POTASSIUM SERUM 3.5 MEQ/L (3.5-5.1); SODIUM LEVEL 141 MEQ/L (136-145)
--- NOTE | 2019-06-05 11:12 | REP ---
REASON: Fever. The latest prior for comparison is 12/09/2006. There is a Mediport device in place the tip of which is in the superior vena cava. There is slight bilateral CP angle blunting with minimal bibasilar opacities. This represents a change from the prior exam. The lateral view suggests asymmetric opacities in the anterior upper lobe region possibly bilaterally. This too represents a change from the prior exam. The heart is not enlarged and the osseous structures are within normal limits. IMPRESSION: Bilateral CP angle blunting suggesting small pleural effusions with other findings as described above. Infectious etiology cannot be ruled out. Electronically Signed by Gera Sosa DO 06/05/2019 11:36 A
[2019-06-05 11:13] LABS: ANISOCYTOSIS 1+; HYPOCHROMASIA 1+; LYMPHOCYTES 4 % (16-44); NEUTROPHILS 95 % (28-66)
[2019-06-05 11:14] LABS: MICROCYTOSIS 1+; PLATELET ESTIMATE NORMAL (NORMAL)
--- NOTE | 2019-06-05 11:50 | REP ---
REASON: Followup plain film findings suggesting pleural effusion and possible parenchymal opacities. Previous chest CT 05/26/2019 also reviewed. Patient also has a history of pancreatic carcinoma. The lack of intravenous contrast decreases the sensitivity of the exam. The mediastinal and pulmonary hilar are essentially unchanged showing no evidence of a gross mass or adenopathy. There is a small left pleural effusion which has developed since the last CT. There is slight right pleural thickening versus a tiny pleural effusion. There is no pericardial effusion. There is no significant change in the appearance of the imaged upper abdomen. There is no significant change in the appearance of the imaged osseous structures. The mediport device tip is again seen in the superior vena cava. Evaluation of the lung morelos again shows biapical pleuroparenchymal scarring. This is essentially unchanged compared to the prior CT. No new abnormal nodules, masses or parenchymal opacities have developed since the last CT. IMPRESSION: 1. Small but new left pleural effusion and possible new tiny right pleural effusion. 2. No change in the overall appearance of the lung morelos as described above. 3. Other findings as described above. Electronically Signed by Gera Sosa DO 06/05/2019 12:06 P
--- NOTE | 2019-06-05 11:56 | REP ---
CT ABDOMEN AND PELVIS WITHOUT CONTRAST: CT abdomen and pelvis is performed without oral or IV contrast. Sagittal and coronal reconstruction images are performed. Comparison made with prior study of 05/26/2019. There are mild chronic fibrotic changes in both lung bases. There are very small pleural effusions bilaterally. The liver is grossly unremarkable. The gallbladder is moderately distended with no gross wall thickening. The spleen is normal in size with a tiny calcification internally. The adrenal glands are unremarkable. Pancreatic head mass is again seen, not well defined due to the lack of IV contrast. There is adjacent periaortic adenopathy. There is compression of the proximal portal vein. There is venous congestion and mesenteric edema. Collateral venous structures are seen in the mesentery. Kidneys demonstrate no calculus, nor do the ureters or bladder. There is no hydroureteronephrosis. There is moderate atherosclerotic calcification of the abdominal aorta without aneurysm. No bowel thickening is seen. The appendix is normal. Mild scattered free fluid is seen in the abdomen and pelvis. Urinary bladder is not optimally distended and not optimally evaluated. I see no pelvic mass. There are degenerative changes of the spine. IMPRESSION: No renal, ureteral or bladder calculus. No hydroureteronephrosis. Pancreatic mass noted. The proximal portal vein is compressed and there is resultant mesenteric venous congestion and edema with multiple venous collateral vessels in the mesentery. There is mild free fluid in the abdomen and pelvis. There are small bilateral pleural effusions. Electronically Signed by Rohan Zavaleta MD 06/05/2019 01:07 P
[2019-06-05] MEDS ORDERED: CIPROFLOXACIN 400 MG in IV 1 EA IV ONE (12:15)
[2019-06-05] MEDS ORDERED: CIPR-249 PO (12:22)
[2019-06-05 13:38] VITALS: BP 135/66
--- NOTE | 2019-06-07 09:25 | ED PDOC ---
Post-Departure Follow-Up omayra duron faxed formal report of ct abd/p Chanel uAstin MD Jun 07, 2019 09:25
--- NOTE | 2019-06-07 09:28 | ED PDOC ---
Post-Departure Follow-Up omayra duron faxed formal report of cxr /ct chest for fu Chanel Russo MD Jun 07, 2019 09:28
[2019-06-07] MEDS ORDERED: KEFL500C17 PO (15:57)
== END 2019-06-05 13:44 | disposition home or self-care (01) ==
LOC: M ED 09:55
DX: N39.0 Urinary tract infection, site not specified (principal); R50.9 Fever, unspecified; C25.9 Malignant neoplasm of pancreas, unspecified; Z92.21 Personal history of antineoplastic chemotherapy
CPT/HCPCS: 36415; 71046; 71250; 74176; 80048; 80076; 81001; 83605; 85025; 87040; 87088; 87186; 96365; 96375; 99284; J0744; J1642

== ENCOUNTER → 2019-06-16 | Outpatient (CLI) | payer MEDICARE ==
[~2019-06-16] MED LIST changes: +CIPR-249 PO; +KEFL500C17 PO; +PROP20TA72 PO
--- NOTE | 2019-06-17 08:24 | RADONC ---
RADIATION ONCOLOGY CONSULTATION NOTE DATE: 06/16/2019 This is a telemedicine visit. The patient was informed of the risks including security breech, technological failure, inability to perform a comprehensive physical exam which could delay or prevent an accurate diagnosis, and potential complications from treatment decisions rendered over a telemedicine platform. The patient understands and consented to the use of telehealth services phone only. CHART NUMBER: [id number] DIAGNOSIS: Unresectable pancreatic ductal adenocarcinoma. STAGE: III, locally advanced. ECOG PERFORMANCE STATUS: Not evaluated. CONSULTATION NOTE Ms. Quezada is a very pleasant 74-year-old white female with the diagnosis of a stage III locally advanced unresectable poorly differentiated ductal adenocarcinoma of the pancreas who is presenting to us today for discussion of possible palliative radiation therapy combined with chemotherapy in attempt to increase some local control. HISTORY OF PRESENT ILLNESS: The patient's history dates back to the summer of last 2018, when she began developing increasing back pain and cramping. This worsened through August and she had tried some nutritional supplements, which did not help. She was also noticing weight loss. The patient presented to her primary care physician and a CT scan was ordered, which was done on 10/01/2018. The CT scan showed a pancreatic mass measuring 5 cm x 3 cm. The lesion appeared to be obstructing the pancreatic duct with peripheral dilation of the duct. The mass extended superiorly to encase celiac artery and posteriorly to encase the superior mesenteric artery. There was also extension into the left periaortic region at the level of the renal vasculature. In addition, the patient was found to have a 1.3 cm lesion in the liver and a CA 19-9 tumor marker was undertaken and found to be 1200. It was thought that this patient had stage IV pancreatic cancer, which was unresectable. The liver lesion, however was not confirmed as malignant and therefore this patient was staged as a stage III locally advanced unresectable carcinoma. She was subsequently referred to our medical oncology department where she has been treated with chemotherapy since last year. Chemotherapy consisted of gemcitabine and Abraxane. She has been followed and managed by our medical oncology department with Dr. Letitia Isaacs followed by Dr. Liliya Hui MD and subsequently by Dr. Kodi Cheek MD and finally by Dr. Isrrael Ro MD who has now referred her to me. The patient has done well with her chemotherapy and most recently had a repeat CT of the abdomen on 06/05/2019. This showed a pancreatic mass, which again was not well defined due to the IV contrast. There was also the adjacent periaortic adenopathy, which is largely unchanged. There was venous congestion and mesenteric edema. Collateral venous structures were seen in the mesentery. CT scan of the chest done 06/05/2019 did not show any evidence of metastatic disease. A PET scan was done on 05/25/2019, which did show persistent hypermetabolic uptake in the tail and body of the pancreas. This appeared improved in relative avidity although slightly. The SUV value was 5.01. Previously it had been 6.20. The portion of the body and tail of the pancreas were slightly thicker than on the CT scan done on 03/17/2019. The body of the pancreas previously measured 1.9 cm in anterior posterior dimension and on the PET scan done 05/25/2019 measured 3 cm. There was a focus of hypermetabolic uptake appearing along the posterior wall of the stomach adjacent to the pancreatic tail. This was thought to be physiologic in nature. No new foci of hypermetabolic uptake was seen. Overall the lesion in the pancreatic tail and body appeared to be slightly improved. The consensus is that there appears to be stability of this disease at this point. The patient was seen by Dr. Ro, who reported that 6 months of palliative chemotherapy was completed with stability of disease and no true evidence of progression. He had recommended chemoradiation therapy in a definitive fashion to try and increase the symptom free interval. I asked the patient if she has any pain and she said today she is having no pain at all. She said she has been cutting down on her pain medication overall. ALLERGIES: The patient is allergic to AUGMENTIN. PAST MEDICAL HISTORY: The patient's past medical history is positive for diabetes, GERD, hyperlipidemia, bilateral cataracts. SOCIAL HISTORY: The patient smoked one pack of cigarettes per day for 15 years. She quit in 2011. She does not abuse alcohol. FAMILY HISTORY: The patient's family history is negative for pancreas cancer or other malignancies. REVIEW OF SYSTEMS The patient's review of systems is positive for generalized weakness in arms and legs and decreased energy. Denies nausea, vomiting, fevers, chills, night sweats, diplopia, headaches, anxiety or depression, anorexia, weight loss, visual disturbances, chest pain, urinary or bowel difficulties, bone pain, or neurological problems. PHYSICAL EXAMINATION: Physical exam was deferred as per COVID-19 precautions. This was a telephone interview. ASSESSMENT: I had a very lengthy discussion with this patient and her . At this time, the patient has done quite well and indeed is now 7-8 months post diagnosis with stability of disease on her palliative systemic therapy. I discussed with this patient in detail the potential benefits in the idea behind providing local regional treatment to her. We discussed the issues of potential benefits as well as possible acute and chronic sequelae of external beam radiation therapy. I did discuss with her specifically the issues with regards to radiation involving the area of the stomach, the kidneys, the liver and the small bowel. At this time, the patient reports that she has a good quality of life and is having no difficulties. She is not sure whether or not she wants to undergo radiation at this point. The patient is scheduled to see her medical oncologist to discuss this further and will be discussing this with her family. In the meantime, she has agreed to allow us to schedule and proceed with planning. I am therefore submitting this case for authorization for initiation of simulation and treatment planning. I made clear to the patient that this is not a curable disease and clearly, therefore she cannot make a wrong decision. She can start radiation and of course stop at anytime if she so chooses. I did explain to her that radiation is a treatment modality she has not received before and we may be able to provide some level of local control for a period of time. Once again in summary, I am scheduling the patient for simulation in initiation of treatment planning. She will continue to discuss this with her family and has not yet decided on whether or not she wants this treatment. She has done well with systemic therapy and this treatment may be of benefit to her. cc: Maci Roberts, JUWAN Hui MD
== END ==
LOC: M ONCR 13:04
PROVIDERS: ATTEND Radiology Radiation Oncology
DX: C25.9 Malignant neoplasm of pancreas, unspecified (principal)

== ENCOUNTER 2019-06-19 20:06 | Emergency (ER) | payer MEDICARE ==
[~2019-06-19] VITALS: Ht 167.6 cm; Wt 59.1 kg
[2019-06-19] MEDS ORDERED: ACETAMINOPHEN 325 MG TAB PO ONE (21:45)
[2019-06-19 22:23] LABS: HEMATOCRIT 24.6 % (36.0-47.0); HEMOGLOBIN 7.6 g/dl (12.0-15.5); MEAN CORPUSCULAR HGB CONC 30.9 g/dl (32.0-36.5); MEAN CORPUSCULAR VOLUME 100.4 fl (80.0-96.0); PLATELET COUNT, AUTOMATED 111 10^3/uL (150-450); RED BLOOD COUNT 2.45 10^6/uL (4.00-5.40); WHITE BLOOD COUNT 25.8 10^3/uL (4.0-10.0)
[2019-06-19 22:44] LABS: ATYPICAL LYMPH 2 % (0-5); BASOPHILS 1 % (0-1); EOSINOPHILS 1 % (0-3); LYMPHOCYTES 4 % (16-44); MICROCYTOSIS 2+; NEUTROPHILS 79 % (28-66)
[2019-06-19 22:45] LABS: ANISOCYTOSIS 1+; OVALOCYTES 1+; PLATELET ESTIMATE DECREASED (NORMAL); POIKILOCYTOSIS 1+
[2019-06-19] MEDS ORDERED: CIPR-249 PO (23:34)
[2019-06-19 23:56] VITALS: BP 131/69
--- NOTE | 2019-06-20 10:30 | REP ---
CHEST, SINGLE VIEW: Single view of the chest is performed and compared to a prior study of 06/05/2019. There is mild biapical pleural thickening unchanged. No new infiltrate is seen on the right. There is mild increase in small left pleural effusion with some mild adjacent left basilar atelectasis/infiltrate. The heart is normal in size and there is calcification of the thoracic aorta. Mediastinal silhouette is unchanged. Right central venous catheter is unchanged. IMPRESSION: Mild increase in small left effusion. There is mild adjacent atelectasis/infiltrate. Electronically Signed by Rohan Zavaleta MD 06/20/2019 10:53 A
== END 2019-06-19 23:57 | disposition home or self-care (01) ==
LOC: M ED 20:06
DX: N39.0 Urinary tract infection, site not specified (principal); E11.9 Type 2 diabetes mellitus without complications; E78.5 Hyperlipidemia, unspecified; C25.9 Malignant neoplasm of pancreas, unspecified; D70.2 Other drug-induced agranulocytosis; K21.9 Gastro-esophageal reflux disease without esophagitis; I10 Essential (primary) hypertension; Z79.899 Other long term (current) drug therapy

== ENCOUNTER 2019-06-23 14:05 | Outpatient (RCR) | payer MEDICARE ==
--- NOTE | 2019-06-25 09:34 | RADONC ---
RADIATION ONCOLOGY SIMULATION NOTE DATE: 06/23/2019 CHART #: [id number] Ms. De Oliveira was taken to the CT scan for CT simulation of her pancreatic field. CT was accomplished without difficulty or discomfort. Radiation treatment planning is underway and radiation treatments will begin subsequently. An immobilization device was created and will be used throughout the course of treatment. It was created without difficulty or discomfort. I was physically present throughout the course of CT simulation.
== END 2019-06-25 ==
LOC: M ONCR 14:05
PROVIDERS: ATTEND Radiology Radiation Oncology
DX: C25.9 Malignant neoplasm of pancreas, unspecified (principal)

== ENCOUNTER → 2019-06-26 | Outpatient (CLI) | payer MEDICARE ==
--- NOTE | 2019-06-26 12:08 | REPMRS ---
Patient History The patient states she had a clinical breast exam in June 2019.Patient is postmenopausal and has history of other cancer at age 73. No known family history of cancer. Benign cyst aspiration of the left breast, June 19, 2000. Benign lumpectomy of the right breast, 1992. No Hormone Replacement Therapy Digital Woman Screen Mammo: June 26, 2019 - Exam #: [id number] Bilateral CC and MLO view(s) were taken. Technologist: Christy Wright, Technologist Prior study comparison: June 25, 2018, bilateral digital woman screen mammo performed at [facility]. June 17, 2017, digital woman screen mammo performed at [facility]. FINDINGS: The breast tissue is heterogeneously dense. This may lower the sensitivity of mammography. The Volpara volumetric breast density category is: C. [id number] catheter projects over the right axilla on today's MLO view of the right breast. Benign calcifications are again noted in the right breast. There is a moderate amount of heterogeneously dense fibroglandular tissue which is fairly symmetric. There is no interval development of dominant mass, architectural distortion, or grouped microcalcification typical of malignancy. There has been no change in the appearance of the mammogram from the prior studies. 3-D tomosynthesis shows no additional findings. Assessment: BI-RADS/ACR category 2 mammogram. Benign Findings. Recommendation Routine screening mammogram of both breasts in 1 year (for women over age 40). This patient's Lifetime Breast Cancer RIsk is estimated at 3.9 %. This mammogram was interpreted with the aid of an FDA-approved computer-aided dectection system. Electronically Signed By: Clif Germain MD 06/26/19 [id number]
== END ==
LOC: M WHC 11:15
PROVIDERS: ATTEND Nurse Practitioner Family
DX: Z12.31 Encounter for screening mammogram for malignant neoplasm of breast (principal); Z78.0 Asymptomatic menopausal state; Z86.018 Personal history of other benign neoplasm; Z85.89 Personal history of malignant neoplasm of other organs and systems; R92.1 Mammographic calcification found on diagnostic imaging of breast

== ENCOUNTER 2019-07-24 12:58 | Outpatient (RCR) | payer MEDICARE ==
--- NOTE | 2019-07-07 16:21 | RADONC ---
RADIATION ONCOLOGY PROGRESS NOTE DATE: 07/06/2019 CHART NUMBER: [id number] PROGRESS NOTE: Ms. De Oliveira underwent her first fraction of radiation today to her pancreas for a dose of 240 cGy. It was tolerated without difficulty or discomfort. REVIEW OF SYSTEMS: Ms. De Oliveira's review of systems remains unchanged and unremarkable. Denies nausea, vomiting, fevers, chills, night sweats, diplopia, headaches, anxiety or depression, anorexia, weight loss, visual disturbances, chest pain, urinary or bowel difficulties, bone pain, or neurological problems. PHYSICAL EXAMINATION: The patient's skin clearly showed no evidence of radiation change present. There was no moist or dry desquamation. The remainder of her physical exam remained unchanged. Ms. De Oliveira tolerated her first fraction of radiation well and radiation will continue as scheduled.
[2019-07-10 16:19] LABS: ALBUMIN 2.6 GM/DL (3.2-5.2); ALT/SGPT 19 U/L (12-78); BILIRUBIN,TOTAL 0.9 MG/DL (0.2-1.0); BLOOD UREA NITROGEN 10 MG/DL (7-18); CARBON DIOXIDE LEVEL 26 MEQ/L (21-32); CHLORIDE LEVEL 105 MEQ/L (98-107); CREATININE FOR GFR 0.58 MG/DL (0.55-1.30); GLOMERULAR FILTRATION RATE > 60.0 (>39); GLUCOSE, FASTING 181 MG/DL (70-100); POTASSIUM SERUM 3.8 MEQ/L (3.5-5.1); SODIUM LEVEL 139 MEQ/L (136-145); TOTAL PROTEIN 5.7 GM/DL (6.4-8.2)
[2019-07-10 16:28] LABS: BASO % 0.6 % (0.0-1.0); EOS # 0.2 10^3/uL (0.0-0.5); EOS % 3.2 % (0.0-3.0); HEMATOCRIT 25.1 % (36.0-47.0); HEMOGLOBIN 7.7 g/dl (12.0-15.5); LYMPH # 0.7 10^3/uL (1.5-5.0); LYMPH % 14.8 % (24.0-44.0); MEAN CORPUSCULAR HEMOGLOBIN 30.7 pg (27.0-33.0); MEAN CORPUSCULAR HGB CONC 30.7 g/dl (32.0-36.5); MONO # 0.4 10^3/uL (0.0-0.8); MONO % 9.1 % (0.0-5.0); NEUTROPHILS # 3.4 10^3/uL (1.5-8.5); NEUTROPHILS % 72.1 % (36.0-66.0); PLATELET COUNT, AUTOMATED 117 10^3/uL (150-450); RED BLOOD COUNT 2.51 10^6/uL (4.00-5.40); WHITE BLOOD COUNT 4.7 10^3/uL (4.0-10.0)
--- NOTE | 2019-07-15 12:48 | RADONC ---
RADIATION ONCOLOGY PROGRESS NOTE DATE: 07/13/2019 CHART #: [id number] Mrs. De Oliveira is presently at a dose of 1440 cGy to her pancreatic mass and is complaining of fatigue. She also has back pain. REVIEW OF SYSTEMS: The patient's review of systems is positive for fatigue and back pain. It is otherwise noncontributory. Denies nausea, vomiting, fevers, chills, night sweats, diplopia, headaches, anxiety or depression, anorexia, weight loss, visual disturbances, chest pain, urinary or bowel difficulties, bone pain, or neurological problems. The patient reports that every time she falls asleep her seems to wake her up worried about her. She is therefore not getting much rest. PHYSICAL EXAMINATION: The patient's skin is in good condition with no evidence of moist or dry desquamation. The remainder of her physical exam remains unchanged. The patient is tolerating her treatments with some fatigue. Radiation will continue as scheduled. I did explain to the patient that initially I had planned on going more slowly with her radiation. Slower treatments would have yielded a longer time to achieve palliation, but may have led to some less fatigue. Her insurance company however did not permit this and only allowed us 15 fractions. We will therefore check the national comprehensive cancer network guidelines and prescribe according to those for palliation of her pancreatic mass at 240 cGy a day times 14 for a total of 3600 cGy as recommended.
[~2019-07-24 12:58] MED LIST changes: -METF-791 PO; +METF-838 PO; +QUES4POW PO
== END 2019-07-26 ==
LOC: M ONCR 12:58
PROVIDERS: ATTEND Radiology Radiation Oncology
DX: C25.9 Malignant neoplasm of pancreas, unspecified (principal)

== ENCOUNTER 2019-07-27 13:02 | Outpatient (RCR) | payer MEDICARE ==
--- NOTE | 2019-07-28 17:26 | RADONC ---
RADIATION ONCOLOGY PROGRESS NOTE DATE: 07/21/2019 CHART NUMBER: [id number] PROGRESS NOTE: Ms. De Oliveira is presently at a dose of 2647 cGy to her gallbladder/pancreas and is tolerating treatments quite well at this point with no significant difficulties related to her radiation therapy other than fatigue and lethargy. REVIEW OF SYSTEMS: The patient's review of systems is positive for fatigue. She does have intermittent back pain as well. She has anorexia. Her review of systems is otherwise noncontributory. Denies nausea, vomiting, fevers, chills, night sweats, diplopia, headaches, anxiety or depression, anorexia, weight loss, visual disturbances, chest pain, urinary or bowel difficulties, bone pain, or neurological problems. PHYSICAL EXAMINATION: The patient's skin is in good condition with no evidence of moist or dry desquamation. The remainder of her physical exam remains unchanged. Ms. De Oliveira is tolerating treatment quite well and radiation will continue as scheduled.
--- NOTE | 2019-08-02 09:50 | RADONC ---
RADIATION ONCOLOGY TREATMENT SUMMARY DATE: 07/27/2019 CHART NUMBER: [id number] DIAGNOSIS: Unresectable pancreatic ductal adenocarcinoma. STAGE: III, locally advanced ECOG PERFORMANCE STATUS: 2 TREATMENT SUMMARY: Ms. De Oliveira is a 74-year-old white female with the diagnosis of locally advanced unresectable poorly differentiated ductal adenocarcinoma of the pancreas who presented to us for consideration of palliative radiation therapy in attempt to increase some type of local control. We treated the patient to her pancreatic mass for a total dose of 3600 cGy delivered in 15 fractions of 240 cGy each over 21 elapsed days from 07/06/2019 through 07/27/2019. The patient's pancreas was treated on a linear accelerator utilizing a 15 MV photon beam via 3-D conformal technique. Ms. De Oliveira tolerated her treatments and was able complete therapy as prescribed. She did have abdominal discomfort and some nausea throughout the course of treatment as well as fatigue and weakness. I have scheduled the patient to see me again in 1 month for further followup. She will also continue to be followed by her other physicians as well. The patient has my cell phone number and office number and I am available to her at anytime on a p.r.n. basis if we could be of any assistance whatsoever. I hope we have been of some benefit to this unfortunate woman. cc: JUWAN Chua MD
[2019-08-20] MEDS ORDERED: METF-839 PO (12:12)
[2019-08-20] MEDS ORDERED: PROP10TA56 PO (15:13)
[2019-08-20] MEDS ORDERED: METF-838 PO (15:13)
== END 2019-08-25 ==
LOC: M ONCR 13:02
PROVIDERS: ATTEND Radiology Radiation Oncology
DX: C25.9 Malignant neoplasm of pancreas, unspecified (principal)

== ENCOUNTER → 2019-08-20 10:18 | Outpatient (RCR) | payer MEDICARE ==
[2018-11-05 13:53] VITALS: BP 118/80
[2018-11-05 15:42] LABS: INR 1.03; PROTHROMBIN TIME 13.2 SECONDS (11.8-14.0)
[2018-11-05 15:43] LABS: PARTIAL THROMBOPLASTIN TIME 27.4 SECONDS (25.0-38.4)
--- NOTE | 2018-11-10 08:31 | MEDONC ---
HEMATOLOGY/ONCOLOGY PROGRESS NOTE: DATE OF SERVICE: 11/05/2018 REASON FOR VISIT: Stage III locally advanced unresectable pancreatic ductal adenocarcinoma. HISTORY OF PRESENT ILLNESS: This is a very pleasant 73-year-old white female who had presented with severe back pain and weight loss around August. The patient tried different nutritional supplements but still continued to get worse. She tried Tylenol for pain relief with no relief of any of her symptoms. She had gone to her primary care physician and he had performed a CT scan of the abdomen which had shown a pancreatic mass measuring 5 x 3 cm. This appeared to be obstructing the pancreatic duct with peripheral dilatation. The mass extends superiorly, encases the celiac artery and posteriorly to encase the superior mesenteric artery making her unresectable. It also extended into the left periaortic region at the level of the renal vasculature. The patient was also noted to have a 1.3 cm lesion in the liver and a CA19-9 tumor marker showed a value to be 1200. The patient had her tissue diagnosis done by upper endoscopy. The patient is able to eat. She has had no vomiting. She has had no signs of any jaundice, but is concerned about her 40 pound weight loss over the past 6 months. Her past medical history includes 3, para 3. Normal sinus vaginal deliveries. She has had a history of tremor, benign breast biopsies, a D C, benign colon polyps and a LEEP procedure, bilateral cataracts. FAMILY HISTORY: Is noted for deafness or hearing loss. There is a family history of diabetes mellitus. SOCIAL HISTORY: She is a former smoker. She is currently . She has three children who are supportive. She smoked about less than half a pack a day for about 40 years and relates having alcohol on weekends. Her medications currently are: - ondansetron 4 mg p.o. daily - MVI - fish oil 1000 mg daily - calcium, vitamin D - propranolol 10 mg p.o. daily - atorvastatin 40 mg p.o. daily - Oxi-plus 2 tablespoons twice a day - LP Gold immune support once a day - vitamin D3 1000 units daily - metformin 500 mg p.o. she takes two once a day - hydrocodone every 6 hours - aspirin 81 mg p.o. daily REVIEW OF SYSTEMS: Is tired, fatigued, weak, lethargic. Likes to spend at least an hour or two on bed at home. She has had no vomiting, again no dysuria. 1. CONSTITUTIONAL: No weight loss, fever chills or night sweats. 2. EYES: No blurring of vision, no visual loss partial or complete, no tearing, redness. 3. EAR, NOSE, THROAT and MOUTH: No hearing loss, sinusitis, sore throat, dental problems, tooth pain. Denies dysphagia, mouth sores, bleeding. 4. RESPIRATORY: Denies asthma, wheezing, cough, sputum production. 5. GI: No nausea, vomiting, diarrhea or constipation, change in color or caliber of stool. No hemorrhoids. No rectal bleeding. No hematemesis, heartburn. 6. : No hematuria, dysuria, frequency, stones. 7. CV: No chest pain, palpitations, murmur, fainting, lightheadedness or chest pressure. 8. ENDOCRINE: No cold or heat intolerance, diabetes, polyuria, polydipsia. 9. MUSCULOSKELETAL: No new joint stiffness, joint swelling, myalgias, gout. 10. ALLERGY/IMMUNOLOGY: No new allergies to food, medications. 11. HEMATOLOGICAL: Denies bruising, bleeding, lymph node enlargement. 12. PSYCHIATRIC: Denies depression, agitation, memory loss, panic attacks. 13. SKIN: Denies rashes, moles, dryness, pigment changes. 14. NEUROLOGIC: Denies dizziness, syncope, seizures, vertigo, weakness, tremor. PHYSICAL EXAMINATION: The patient is very thin. She is frail. She has generalized pallor only. Her ECOG is 1/4. Her temperature is 96.9, pulse is 97, respiratory rate is 18, BP is 118/80, pulse oximetry is 97. Her HEENT is normocephalic, atraumatic. PERRL. EOMI. Sclerae is white, nonicteric. Oropharynx is otherwise clear. Her neck is supple with no adenopathy. Chest: Decreased breath sounds at the bases. Cardiovascular: S1 and S2 are appreciated. Abdomen is soft and flat. There is no signs of any hepatosplenomegaly. No signs of any ascites. On her laboratory, her PT is 13.2. PT/INR is 1.03, PTT is 27.4, WBC count is 5, hemoglobin is 14/42, RDW is 12, platelet count 158, neutrophils of 63, lymphocytes of 23. On her serum chemistries, creatinine 0.64, BUN of 13, creatinine 0.64. ASSESSMENT: 1. Locally advanced stage III pancreatic carcinoma. 2. Weight loss, cachexia secondary to malignancy. 3. Diabetes, non-insulin dependent diabetes. PLAN: I have had a discussion with the patient regarding the difference of chemotherapy regimens. I have recommended the gemcitabine and Abraxane due to its better tolerability, that the FOLFIRINOX has a high rate of complication side effects and with her current performance status and did not think she would be able to tolerate it. The patient will be getting a Port-A-Cath placed. One week after her port is placed, she will be going on the gemcitabine and Abraxane treatment regiment. Information sheets were given out for the patient and her family to read in review. Electronically Signed by Letitia Isaacs MD 11/10/2018 11:02 A DD: Letitia Isaacs MD 11/06/2018 02:59 P DT: silvino 11/10/2018 07:58 A CC: Maci Roberts NP
[2018-11-12 15:07] VITALS: BP 135/84
--- NOTE | 2018-11-17 08:53 | MEDONC ---
HEMATOLOGY/ONCOLOGY PROGRESS NOTE DATE OF SERVICE: 11/12/2018 This is a very pleasant 73-year-old white female who has a stage III locally advanced, unresectable pancreatic adenocarcinoma. The patient had just been discharged from the hospital and is here today on followup. Patient was to start gemcitabine and Abraxane treatment prior to being admitted for diarrhea, weight loss. Her past medical, surgical and family history have remained unchanged since her office visit of 11/06/2018. MEDICATIONS: - ascorbic acid - aspirin - atorvastatin - calcium - gabapentin - hydrocodone - Megace - metformin - ondansetron - propranolol. PHYSICAL EXAMINATION The patient has a temperature of 97.4, pulse of 96, respiratory rate is 16, BP of 135/84. HEENT is normocephalic, atraumatic. PERRL. EOMI. Sclerae is white, nonicteric. Oropharynx is otherwise clear. Her neck is supple with no adenopathy. Chest: Decreased breath sounds at the bases. Cardiovascular: S1, S2 are appreciated with no murmurs. Abdomen is otherwise soft, nontender. Extremities: No cyanosis, clubbing or any edema. Her PT is 13.2, PTT is 27.4. She has a WBC count of 4.7, hemoglobin and hematocrit of 12.2 over 36, platelet counts are 142, neutrophils 62, lymphocytes of 22.6. On her chemistries she has a sodium of 144, chloride of 111, BUN of 8, creatinine 0.43, AST of 14, ALT of 13, albumin is 3, TSH of 2.03. ASSESSMENT: 1. Pancreatic carcinoma. PLAN: The plan is to initiate gemcitabine iand NAB paclitaxel. The patient will get three cycles and then she will have restaging. edited: 11/20/2018 [id number] Electronically Signed by Letitia Isaacs MD 11/24/2018 05:02 P DD: Letitia Isaacs MD 11/13/2018 04:23 P DT: [email or web address] 11/17/2018 08:06 A CC: Maci Roberts NP
[2018-11-19 08:40] VITALS: BP 150/78
[2018-11-19 09:00] LABS: HEMATOCRIT 42.6 % (36.0-47.0); HEMOGLOBIN 13.8 g/dl (12.0-15.5); LYMPH % 17.8 % (24.0-44.0); MEAN CORPUSCULAR HEMOGLOBIN 32.8 pg (27.0-33.0); MEAN CORPUSCULAR HGB CONC 32.4 g/dl (32.0-36.5); MEAN CORPUSCULAR VOLUME 101.3 fl (80.0-96.0); NEUTROPHILS # 6.1 10^3/uL (1.8-7.7); NEUTROPHILS % 74.8 % (36.0-66.0); RED BLOOD COUNT 4.21 10^6/uL (4.00-5.40); WHITE BLOOD COUNT 8.1 10^3/uL (4.0-10.0)
[2018-11-19 09:30] LABS: ALBUMIN 4.2 GM/DL (3.5-5.2); BLOOD UREA NITROGEN 16 MG/DL (6-20); CARBON DIOXIDE LEVEL 28 MEQ/L (23-31); CHLORIDE LEVEL 99 MMOL/L (98-107); CREATININE FOR GFR 0.84 MG/DL (0.60-1.10); GLOMERULAR FILTRATION RATE > 60.0 (>39); GLUCOSE, FASTING 155 MG/DL (70-105); SODIUM LEVEL 136 MMOL/L (135-145)
--- NOTE | 2018-11-19 09:47 | ONC.PHACK ---
CHEMO ADMIN CHECKLIST Order Contains Pt ID: Name, Order on Chemo Order Form?: Yes Order Form Includes ALL: Correct Tx Day, Correct Date, Correct Cycle Number Pt ID on Order form Matches: Pt ID on PHA Label Med on Chemo OrderForm Matches: PHA Label, Med Used for Preparation [facility] Nov 19, 2018 09:47
--- NOTE | 2018-11-20 22:10 | MEDONC ---
MEDICAL ONCOLOGY TELEPHONE NOTE Please file this as a progress note. Otherwise, it will be visible to the medical oncology service and the outpatient setting. DATE OF SERVICE: 11/20/2018 I received a call from Aleyda Roberts NP the patient's primary care provider who noted Ms. De Oliveira was in her office complaining of severe pain. She had a few days left of pain medications which were prescribed during a recent hospitalization for intractable pain. Aleyda asks if it would be okay if she renewed the pain medications and referred the patient to palliative care. I said this would be fine. Aleyda raised the issue of celiac block, as this has been recommended or at least mentioned in one of the [facility] [place] notes. I offered to refer the patient for consideration of celiac block with Dr. Billings and emphasized that if Aleyda could and she agreed to let the patient know this was not command or an order but simply a consult with the IR doctor to see if this would be an appropriate intervention for her to help with pain. Aleyda graciously agreed to fill the pain meds and refer the patient to palliative care in Dr. Isaacs's absence. I have put in the interventional radiology referral which can of course be reversed as Dr. Isaacs or the patient prefer. Electronically Signed by Liliya Hui MD 11/21/2018 05:29 P DD: Liliya Hui MD 11/20/2018 12:11 P DT: [email or web address] 11/20/2018 10:05 P CC: Esperanza Billings MD
[2018-11-25 07:54] VITALS: BP 122/65
[2018-11-25 08:19] LABS: HEMATOCRIT 36.8 % (36.0-47.0); LYMPH % 35.6 % (24.0-44.0); MEAN CORPUSCULAR HEMOGLOBIN 32.9 pg (27.0-33.0); MEAN CORPUSCULAR HGB CONC 32.6 g/dl (32.0-36.5); MEAN CORPUSCULAR VOLUME 100.9 fl (80.0-96.0); NEUTROPHILS # 2.2 10^3/uL (1.8-7.7); NEUTROPHILS % 58.2 % (36.0-66.0); RED BLOOD COUNT 3.65 10^6/uL (4.00-5.40); WHITE BLOOD COUNT 3.7 10^3/uL (4.0-10.0)
[2018-11-25 08:34] LABS: ALBUMIN 3.7 GM/DL (3.5-5.2); BLOOD UREA NITROGEN 15 MG/DL (6-20); CARBON DIOXIDE LEVEL 28 MEQ/L (23-31); CHLORIDE LEVEL 103 MMOL/L (98-107); CREATININE FOR GFR 0.39 MG/DL (0.60-1.10); GLUCOSE, FASTING 149 MG/DL (70-105); SODIUM LEVEL 139 MMOL/L (135-145)
[2018-11-25 08:35] LABS: GLOMERULAR FILTRATION RATE > 60.0 (>39)
--- NOTE | 2018-11-25 08:57 | ONC.PHACK ---
CHEMO ADMIN CHECKLIST Order Contains Pt ID: Name, Order on Chemo Order Form?: Yes Order Form Includes ALL: Correct Tx Day, Correct Date, Correct Cycle Number Pt ID on Order form Matches: Pt ID on PHA Label Med on Chemo OrderForm Matches: PHA Label, Med Used for Preparation [facility] Nov 25, 2018 08:57
--- NOTE | 2018-11-25 12:07 | MEDONC ---
HEMATOLOGY/ONCOLOGY PROGRESS NOTE DATE OF SERVICE: 11/25/2018 REASON FOR VISIT: Followup evaluation for chemotherapy with NAB paclitaxel and gemcitabine for stage III locally advanced unresectable pancreatic ductal adenocarcinoma. The patient is here for evaluation of treatment cycle one treatment day #8. In the interval since last visit, the patient has had an increase in her pain that required changes in her pain medication dosing. She had been on 15 mL of oral hydrocodone and had gone down to 5 mL, this was a 7.5 / 325 mg of acetaminophen in 15 mL. She has gone back to the 15 mL dose and has had a marked improvement in her pain where she is able to manage and become engaged in all of her activities of daily living. She is also continuing to take the Megace acetate, which has been successful in increasing her appetite. This week, the patient relates having had a "good week," as compared to last week. ALLERGIES: The patient's allergies are to AMOXICILLIN and CLAVULANIC ACID. TREATMENT HISTORY: NAB paclitaxel and gemcitabine started on 11/05/2018. PAST MEDICAL HISTORY: 3, para 3 normal spontaneous vaginal deliveries, history of tremor, benign breast biopsies, D and C, benign colon polyps and LEEP procedure, bilateral cataracts. FAMILY HISTORY: Noted for deafness or hearing loss. There is a family history of diabetes mellitus. SOCIAL HISTORY: She is a former smoker. She is currently . She has three children who are supportive who are adult children in their 40s. She smoked less than half a pack a day for 30 years. MEDICATIONS: - ascorbic acid 500 mg p.o. at bedtime - aspirin 81 mg p.o. q.h.s. - atorvastatin calcium 40 mg p.o. daily - gabapentin 300 mg p.o. daily - Megace 800 mg p.o. daily - metformin 1000 mg p.o. q.p.m. - omega three fish oils 1 capsule p.o. q.p.m. - ondansetron 4 mg p.o. q.6 h as needed - propranolol 10 mg p.o. b.i.d. REVIEW OF SYSTEMS: : Please note that she has had some tiredness and fatigue; however, she is much more restful than compared to last week. GI: She has had diarrhea. She was taking MiraLax the whole capsule every day, she cut back on the MiraLax and is taking half a capsule where she ended up constipated and they are trying to look for happy medium where she is able to move her bowels but not have diarrhea and not be constipated. Currently, as a result, the patient cut back the MiraLax to half dose and is now currently constipated from this. PAIN CONTROL MANAGEMENT: She is on the 15 mL of the 7.5 / 325 solution and this appears to be doing the trick. 1. CONSTITUTIONAL: No weight loss, fever chills or night sweats. 2. EYES: No blurring of vision, no visual loss partial or complete, no tearing, redness. 3. EAR, NOSE, THROAT and MOUTH: No hearing loss, sinusitis, sore throat, dental problems, tooth pain. Denies dysphagia, mouth sores, bleeding. 4. RESPIRATORY: Denies asthma, wheezing, cough, sputum production. 5. GI: No nausea, vomiting, diarrhea or constipation, change in color or caliber of stool. No hemorrhoids. No rectal bleeding. No hematemesis, heartburn. 6. : No hematuria, dysuria, frequency, stones. 7. CV: No chest pain, palpitations, murmur, fainting, lightheadedness or chest pressure. 8. ENDOCRINE: No cold or heat intolerance, diabetes, polyuria, polydipsia. 9. MUSCULOSKELETAL: No new joint stiffness, joint swelling, myalgias, gout. 10. ALLERGY/IMMUNOLOGY: No new allergies to food, medications. 11. HEMATOLOGICAL: Denies bruising, bleeding, lymph node enlargement. 12. PSYCHIATRIC: Denies depression, agitation, memory loss, panic attacks. 13. SKIN: Denies rashes, moles, dryness, pigment changes. 14. NEUROLOGIC: Denies dizziness, syncope, seizures, vertigo, weakness, tremor. PHYSICAL EXAMINATION: CONSTITUTIONAL: ECOG status 1/4, weight is 51.4, BSA is 1.54, temperature 98.3, pulse 76, respiratory rate is 18, blood pressure 122/65, pulse oximetry is 95. The patient shows some pallor but no signs of any jaundice. HEENT: NC. AT, PERRL, EOMI, sclera is white, nonicteric, nares intact, oropharynx clear, no thrush, no buccal lesions, tongue without lesions, facial area without abnormalities. NECK: Trachea midline. No thyromegaly. No masses. CHEST: Decreased breath sounds at the bases. CV: S1 and S2 appreciated. ABDOMEN: Soft. No ascites. EXTREMITIES: No edema, swelling, abnormalities. LABORATORIES: WBC count of 3.7, hemoglobin and hematocrit of 12 over 36, MCV of 10.9, RDW of 12.2, platelets 153, neutrophils of 58.2, lymphocytes of 35.6, absolute neutrophil count is 2200. On her chemistries, sodium is 139, potassium is 3.8, chloride 103, CO2 28, BUN 15, creatinine 0.39, fasting glucose of 149, calcium of 9.4, total bilirubin 0.8, AST 21, ALT of 11, alkaline phosphatase 70 and total protein is 6. ASSESSMENT: 1. 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 2. The patient tolerated cycle #1 day 1 last week. 3. Intermittent constipation and diarrhea due to bowel regimen. PLAN: 1. The patient is to continue cycle one day two of chemotherapy today. No dose adjustments are required. 2. The patient was advised to take a stool softener in the morning and to take half of dose of the MiraLax at night. 3. Continue current pain medication regiment at 15 mL a day every 4 hours as needed. Electronically Signed by Letitia Isaacs MD 11/25/2018 03:42 P DD: Letitia Isaacs MD 11/25/2018 09:53 A DT: [email or web address] 11/25/2018 11:26 A CC: Maci Roberts NP
[2018-12-02 11:16] VITALS: BP 104/64
[2018-12-02 11:33] LABS: HEMATOCRIT 34.2 % (36.0-47.0); HEMOGLOBIN 11.1 g/dl (12.0-15.5); MEAN CORPUSCULAR HEMOGLOBIN 32.4 pg (27.0-33.0); MEAN CORPUSCULAR HGB CONC 32.5 g/dl (32.0-36.5); MEAN CORPUSCULAR VOLUME 99.8 fl (80.0-96.0); NEUTROPHILS # 0.9 10^3/uL (1.8-7.7); NEUTROPHILS % 42.9 % (36.0-66.0); RED BLOOD COUNT 3.43 10^6/uL (4.00-5.40); WHITE BLOOD COUNT 2.2 10^3/uL (4.0-10.0)
[2018-12-02 11:38] LABS: ALBUMIN 3.6 GM/DL (3.5-5.2); BLOOD UREA NITROGEN 10 MG/DL (6-20); CARBON DIOXIDE LEVEL 27 MEQ/L (23-31); CHLORIDE LEVEL 102 MMOL/L (98-107); CREATININE FOR GFR 0.76 MG/DL (0.60-1.10); GLOMERULAR FILTRATION RATE > 60.0 (>39); GLUCOSE, FASTING 115 MG/DL (70-105); SODIUM LEVEL 139 MMOL/L (135-145); TOTAL PROTEIN 6.3 GM/DL (6.4-8.3)
--- NOTE | 2018-12-03 12:49 | MEDONC ---
HEMATOLOGY/ONCOLOGY PROGRESS NOTE: DATE OF SERVICE: REASON FOR VISIT: This is a very pleasant 73-year-old white female who is here today on evaluation of chemotherapy with Nab-paclitaxel and gemcitabine for pancreatic carcinoma. The patient is here today for treatment cycle number one and treatment day 15. The patient's day 8 was on 11/25/2018. The patient has been feeling poorly. She has had a history of diarrhea, watery, intermittent with constipation, depending upon how she has been taking her pain pills. relates that the main problem currently is the diarrhea episodes where she feels tired, lethargic and weak. She has had no fever or night sweats or chills. No nausea. PAST TREATMENT HISTORY: The patient's past treatment history is as per her progress note of 11/25/2018. Past medical, family, social history have remained unchanged since 11/25/2018. CURRENT MEDICATIONS: - ascorbic acid - aspirin - atorvastatin - gabapentin - Vicodin - Megace - metformin - omega 3 fatty acids - ondansetron - propranolol. REVIEW OF SYSTEMS: As noted above. PHYSICAL EXAMINATION: ECOG is about 2/4. Her weight is 50.6 kg, BSA 1.53, temperature 97.8, pulse 72, respiratory rate 18, BP 104/64, pulse oximetry 98. HEENT: Sclerae is white, it is pale, nonicteric. Oropharynx is clear. Neck is supple. Chest: Decreased breath sounds at the bases. Cardiovascular: S1, S2 appreciated. Abdomen is soft. Extremities: No cyanosis, clubbing or any edema. LABORATORY DATA: WBC count is 2.2, hemoglobin and hematocrit 11/34, platelets 49,000, neutrophils 42, lymphocytes 50, ANC 0.9. On her chemistries, she has a potassium of 3.9. ASSESSMENT: Intermittent diarrhea likely due to possible constipated postobstructive stool. PLAN: Plan is to hold off on chemotherapy. Reschedule her for her next cycle in 2 weeks. Drop day 15 of this current cycle. Electronically Signed by Letitia Isaacs MD 12/03/2018 02:33 P DD: Letitia Isaacs MD 12/02/2018 05:36 P DT: [email or web address] 12/03/2018 12:41 P CC:
[2018-12-16 09:04] LABS: HEMATOCRIT 36.4 % (36.0-47.0); HEMOGLOBIN 11.7 g/dl (12.0-15.5); LYMPH % 21.5 % (24.0-44.0); MEAN CORPUSCULAR HEMOGLOBIN 33.5 pg (27.0-33.0); MEAN CORPUSCULAR HGB CONC 32.1 g/dl (32.0-36.5); MEAN CORPUSCULAR VOLUME 104.3 fl (80.0-96.0); NEUTROPHILS # 7.6 10^3/uL (1.8-7.7); NEUTROPHILS % 70.9 % (36.0-66.0); RED BLOOD COUNT 3.49 10^6/uL (4.00-5.40); WHITE BLOOD COUNT 10.7 10^3/uL (4.0-10.0)
[2018-12-16 09:10] VITALS: BP 115/69
[2018-12-16 09:33] LABS: ALBUMIN 3.7 GM/DL (3.5-5.2); BLOOD UREA NITROGEN 16 MG/DL (6-20); CARBON DIOXIDE LEVEL 28 MEQ/L (23-31); CHLORIDE LEVEL 104 MMOL/L (98-107); CREATININE FOR GFR 0.87 MG/DL (0.60-1.10); GLOMERULAR FILTRATION RATE > 60.0 (>39); GLUCOSE, FASTING 170 MG/DL (70-105); SODIUM LEVEL 140 MMOL/L (135-145); TOTAL PROTEIN 5.9 GM/DL (6.4-8.3)
--- NOTE | 2018-12-16 10:26 | ONC.PHACK ---
CHEMO ADMIN CHECKLIST Order Contains Pt ID: Name, Order on Chemo Order Form?: Yes Order Form Includes ALL: Correct Tx Day, Correct Date, Correct Cycle Number Pt ID on Order form Matches: Pt ID on PHA Label Med on Chemo OrderForm Matches: PHA Label, Med Used for Preparation [facility] Dec 16, 2018 10:26
--- NOTE | 2018-12-17 09:25 | MEDONC ---
HEMATOLOGY/ONCOLOGY PROGRESS NOTE DATE OF SERVICE: 12/16/2018 REASON FOR VISIT: This is a very pleasant 73-year-old white female who is here on evaluation of chemotherapy with nab-paclitaxel and gemcitabine for pancreatic carcinoma. The patient is here to start cycle number two treatment day one. She has been feeling somewhat tired, but otherwise has no current complaints of any pain. Please refer to her prior progress note of 12/02/2018. REVIEW OF SYSTEMS: Again tired, fatigued. Appetite is fair. No current complaints of any pain. The remainder of her 12-point review of systems is otherwise negative. PHYSICAL EXAMINATION: Her ECOG is 1/4. Temperature is 96.2, pulse is 68, respiratory rate is 18, BP is 115/69 and pulse oximetry is 97. She is thin with muscle wasting. HEENT: NC. AT, PERRL, EOMI, sclera is white, nonicteric, nares intact, oropharynx clear, no thrush, no buccal lesions, tongue without lesions, facial area without abnormalities. NECK: Trachea midline. No thyromegaly. No masses. CHEST: Normal AP diameter. No truncal lesions noted. No rales, rhonchi or wheezes noted. Clear to auscultation and percussion. CV: S1 and S2 appreciated, no murmurs, gallops or rubs. Rhythm RR. ABDOMEN: She does not have any ascites, guarding, rebound. Abdomen is flat. : No CVA tenderness. Normal external genitalia, normal secondary sexual characteristics. EXTREMITIES: Upper extremities: No edema, swelling, abnormalities. Lower extremities show no cyanosis, clubbing or edema. No varicosities. Good capillary filling noted on right and left lower extremity. NEUROLOGICAL: Cranial nerves II- XII intact. No focal deficits, motor and sensory intact, no tremor. VASCULAR: Pulses equal and present in upper extremities and lower extremities. Good capillary filling in lower extremities. No carotid bruits. No abdominal bruits. MUSCULOSKELETAL: No point tenderness. Normal spinal alignment. Range of motion joints, no limitation. SKIN: No lesions, rashes noted. PSYCH: No agitation, normal behavior. MEDICATIONS: Ascorbic acid, aspirin, atorvastatin, Lomotil, gabapentin, Vicodin, lidocaine, Megace, metformin, omega 3 fatty acids, ondansetron and propranolol. LABORATORIES: Show WBC count of 10.7, ANC of 7600, hemoglobin is 11.7 over 36.4. Serum chemistries show a sodium of 140, creatinine 0.87, glucose of 170, total bilirubin of 0.7, AST of 10, ALT of 4, alkaline phosphatase is 65 and total protein 5.9. ASSESSMENT: Stage III locally advanced unresectable pancreatic ductal adenocarcinoma currently tolerating a nab-paclitaxel chemo. PLAN: To continue treatment. Restage after cycle 3 day 15. Monitor CBC, CMP and LDH. Electronically Signed by Letitia Isaacs MD 12/17/2018 02:50 P DD: Letitia Isaacs MD 12/16/2018 02:55 P DT: [email or web address] 12/17/2018 09:11 A CC: Maci Roberts COMPUTER METHODS ANALYST
[2018-12-17 11:01] VITALS: BP 112/66
[2018-12-23 09:58] LABS: HEMATOCRIT 32.5 % (36.0-47.0); HEMOGLOBIN 10.6 g/dl (12.0-15.5); LYMPH % 27.7 % (24.0-44.0); MEAN CORPUSCULAR HEMOGLOBIN 34.1 pg (27.0-33.0); MEAN CORPUSCULAR HGB CONC 32.6 g/dl (32.0-36.5); MEAN CORPUSCULAR VOLUME 104.5 fl (80.0-96.0); NEUTROPHILS # 4.7 10^3/uL (1.8-7.7); NEUTROPHILS % 60.4 % (36.0-66.0); RED BLOOD COUNT 3.11 10^6/uL (4.00-5.40); WHITE BLOOD COUNT 7.7 10^3/uL (4.0-10.0)
[2018-12-23 10:00] VITALS: BP 113/68
[2018-12-23 10:23] LABS: ALBUMIN 3.8 GM/DL (3.5-5.2); BLOOD UREA NITROGEN 16 MG/DL (6-20); CARBON DIOXIDE LEVEL 30 MEQ/L (23-31); CHLORIDE LEVEL 104 MMOL/L (98-107); CREATININE FOR GFR 0.64 MG/DL (0.60-1.10); GLOMERULAR FILTRATION RATE > 60.0 (>39); GLUCOSE, FASTING 118 MG/DL (70-105); SODIUM LEVEL 139 MMOL/L (135-145); TOTAL PROTEIN 6.1 GM/DL (6.4-8.3)
--- NOTE | 2018-12-23 11:06 | ONC.PHACK ---
CHEMO ADMIN CHECKLIST Order Contains Pt ID: Name, Order on Chemo Order Form?: Yes Order Form Includes ALL: Correct Tx Day, Correct Date, Correct Cycle Number Pt ID on Order form Matches: Pt ID on PHA Label Med on Chemo OrderForm Matches: PHA Label, Med Used for Preparation [facility] Dec 23, 2018 11:06
--- NOTE | 2018-12-24 08:58 | MEDONC ---
HEMATOLOGY/ONCOLOGY PROGRESS NOTE DATE OF SERVICE: 12/23/2018 REASON FOR VISIT: The patient is here today on evaluation of chemotherapy with nab-paclitaxel for pancreatic carcinoma. The patient is here for treatment cycle #2 day #1. The patient has been tolerating the chemotherapy well. She has had no problems with any nausea or vomiting. No signs of any neutropenia. She has been getting some Neupogen which appears to be keeping her right on target with her WBC counts. TREATMENT SUMMARY: The patient was diagnosed with stage III locally advanced pancreatic ductal carcinoma on October 14 with pancreatic showing poorly differentiated histology. The patient started chemotherapy with gemcitabine and nab-paclitaxel on 11/19/2018 to present. CURRENT MEDICATIONS: The patient's current medications include ascorbic acid, aspirin, atorvastatin calcium, gabapentin, 300 mg p.o. t.i.d., hydrocodone/acetaminophen, Megace, metformin, omega 3, ondansetron and propranolol. REVIEW OF SYSTEMS: The patient has otherwise tired, fatigued, but able to participate in all of her activities of daily living. Otherwise, the remainder of her 12-point review of systems is negative. No nausea. No change in color or caliber of her stool. PHYSICAL EXAMINATION: She has an ECOG of 1/4. Her temperature is 96.7 pulse is 80, respiratory rate is 16, BP is 113/68, pulse oximetry is 97. Thin, muscle wasting. HEENT: NC. AT, PERRL, EOMI, sclera is white, nonicteric, nares intact, oropharynx clear, no thrush, no buccal lesions, tongue without lesions, facial area without abnormalities. NECK: Trachea midline. No thyromegaly. No masses. CHEST: Normal AP diameter. No truncal lesions noted. No rales, rhonchi or wheezes noted. Clear to auscultation and percussion. CV: S1 and S2 appreciated, no murmurs, gallops or rubs. Rhythm RR. ABDOMEN: Soft, nontender. No HSM. No ascites. No guarding or rebound. : No CVA tenderness. Normal external genitalia, normal secondary sexual characteristics. EXTREMITIES: Upper extremities: No edema, swelling, abnormalities. Lower extremities show no cyanosis, clubbing or edema. No varicosities. Good capillary filling noted on right and left lower extremity. NEUROLOGICAL: Cranial nerves II- XII intact. No focal deficits, motor and sensory intact, no tremor. VASCULAR: Pulses equal and present in upper extremities and lower extremities. Good capillary filling in lower extremities. No carotid bruits. No abdominal bruits. MUSCULOSKELETAL: No point tenderness. Normal spinal alignment. Range of motion joints, no limitation. SKIN: No lesions, rashes noted. PSYCH: No agitation, normal behavior. LABORATORIES: WBC count is 7.7, hemoglobin of 10.6 over 32.5 and platelet counts are about 175,000. ASSESSMENT: 1. Muscle wasting secondary to disease state. 2. Stage III locally unresectable pancreatic carcinoma. 3. Chemotherapy induced anemia. 4. Patient has a history of having had chemotherapy induced pancytopenia after her chemotherapy cycle. PLAN: To monitor the patient's response not only from a red cell and absolute neutrophil count, but she may need some dose adjustments. Monitor for any signs of pain or GI disturbances. Plan will be to restage the patient after she has had three complete cycles of chemotherapy. Electronically Signed by Letitia Isaacs MD 12/24/2018 01:20 P DD: Letitia Isaacs MD 12/23/2018 04:39 P DT: [email or web address] 12/24/2018 08:52 A CC: Maci Roberts NP
[2018-12-30 08:15] VITALS: BP 134/72
[2018-12-30 08:16] LABS: BASO % 0.8 % (0.0-1.0); EOS # 0.1 10^3/uL (0.0-0.5); EOS % 1.9 % (0.0-3.0); HEMATOCRIT 31.6 % (36.0-47.0); HEMOGLOBIN 10.3 g/dl (12.0-15.5); LYMPH # 1.4 10^3/uL (1.5-5.0); LYMPH % 26.2 % (24.0-44.0); MEAN CORPUSCULAR HEMOGLOBIN 34.1 pg (27.0-33.0); MEAN CORPUSCULAR HGB CONC 32.6 g/dl (32.0-36.5); MEAN CORPUSCULAR VOLUME 104.6 fl (80.0-96.0); MONO # 0.8 10^3/uL (0.0-0.8); MONO % 14.9 % (0.0-5.0); NEUTROPHILS # 2.8 10^3/uL (1.5-8.5); NEUTROPHILS % 53.3 % (36.0-66.0); RED BLOOD COUNT 3.02 10^6/uL (4.00-5.40); WHITE BLOOD COUNT 5.2 10^3/uL (4.0-10.0)
[2018-12-30 08:38] LABS: PLATELET COUNT, AUTOMATED 86 10^3/uL (150-450)
[2018-12-30 08:46] LABS: ALT/SGPT 41 U/L (12-78); BILIRUBIN,TOTAL 0.6 MG/DL (0.2-1.0); BLOOD UREA NITROGEN 15 MG/DL (7-18); CARBON DIOXIDE LEVEL 28 MEQ/L (21-32); CHLORIDE LEVEL 106 MEQ/L (98-107); CREATININE FOR GFR 0.64 MG/DL (0.55-1.30); GLOMERULAR FILTRATION RATE > 60.0 (>39); GLUCOSE, FASTING 108 MG/DL (70-100); POTASSIUM SERUM 3.8 MEQ/L (3.5-5.1); SODIUM LEVEL 140 MEQ/L (136-145); TOTAL PROTEIN 6.7 GM/DL (6.4-8.2)
--- NOTE | 2018-12-30 11:11 | MEDONC ---
HEMATOLOGY/ONCOLOGY PROGRESS NOTE DATE OF SERVICE: 12/30/2018 This is a very pleasant 73-year-old white female who is here today on followup and evaluation of stage III locally advanced pancreatic ductal carcinoma. The patient's treatment summary: 1. The patient was diagnosed with stage III locally advanced pancreatic ductal carcinoma on October 14 showing poorly differentiated histology. 2. The patient started on chemotherapy with gemcitabine and nab-paclitaxel on 11/19/2018 and is her current treatment. 3. The patient had undergone interventional radiology procedure for celiac nerve plexus patient. The patient was given a temporary block to check the efficacy. Her current chief complaint is pain medication. The patient had been taking Vicodin liquid every 4 hours. She had been taking more than the month supply and ran into some issues with the pharmacy. She was then switched over to oral morphine in order to be able to increase her dose without concerns of the Tylenol component. She is currently on 7.5 mL of a 10 mg/mL solution of morphine. It is controlling her pain somewhat. However, she does need to take the medication every 3-4 hours. The patient relates that the celiac plexus block was successful. However, it did not last. It was not a durable fix, and it lasted for about to 2-3 weeks, and then she has the pain back in the midabdominal area again. Positional changes do not make any difference, and the patient also describes the pain as being somewhat burning, about a 6-8/10 on occasion. As the medication wears off, the pain becomes more intense. Gabapentin had improved it somewhat, but it is still present. Her medications include ascorbic acid, aspirin, atorvastatin, Lomotil, gabapentin 300 mg p.o. t.i.d., Megace 800 mg p.o. daily, metformin 1000 mg p.o. q.p.m., morphine sulfate 7.5 mg p.o. q.4 h as needed in a 10 mg per 5 mL solution. [place] fatty acids, ondansetron, and propranolol. On her review of systems, pain assessment is as per HPI. She has had no diarrhea. She has had no constipation. She is still continuing to take the Megace. She is able to participate in all of her activities of daily living but does get tired at the end of the day. On her remainder of her 12-point review of systems is otherwise negative. On her physical examination, her ECOG is 1/4, her temperature is 96.7, pulse is 67, respiratory rate is 16, BP is 134/72, pulse oximetry is 92. The patient shows some general pallor. Her HEENT is normocephalic, atraumatic. PERRL. EOMI. Sclerae white, anicteric. Oropharynx is otherwise clear. Her neck is supple with no adenopathy. Her chest shows decreased breath sounds at the bases. Cardiovascular: S1 and S2 are appreciated with no murmurs. Her abdomen is otherwise soft, nontender. Her extremities show no cyanosis, no clubbing, or any edema. Port-a-Cath site is intact. On her laboratories today, her WBC count is 5.2, hemoglobin is 10.3 over hematocrit 31.6, RDW is 15.9, and platelets are about 86,000, absolute neutrophil count is about 2.8. Chemistries show a sodium of 140, a creatinine of 0.64, albumin of 3.0. ASSESSMENT: 1. Hypoalbuminemia. 2. Stage III locally advanced pancreatic carcinoma. 3. Celiac plexus nerve pain, alleviated by temporary block, now improved with oral medication. However, pain is still about a 4/5 even with medication. PLAN: 1. Hold her chemotherapy today due to platelet counts. 2. I did discussed with Dr. Esperanza Billings doing a permanent celiac block. The patient will be scheduled for an alcohol ablation of the celiac plexus. Maintain current pain medication with morphine sulfate 10 mg per 5 mL, 7.5 mL by mouth every 4 hours as needed. The patient was given a 14-day supply. Monitor for any diarrhea and/or constipation. Increase nutritional supplements and protein. The patient is showing hypoalbuminemia. Electronically Signed by Letitia Isaacs MD 12/31/2018 11:25 A DD: Letitia Isaacs MD 12/30/2018 10:43 A DT: [email or web address] 12/30/2018 10:54 A CC: Maci Roberts NP
[2019-01-06 08:12] VITALS: BP 127/72
[2019-01-06 08:24] LABS: BASO # 0.1 10^3/uL (0.0-0.2); BASO % 0.6 % (0.0-1.0); EOS # 0.2 10^3/uL (0.0-0.5); EOS % 1.8 % (0.0-3.0); HEMATOCRIT 32.4 % (36.0-47.0); HEMOGLOBIN 10.3 g/dl (12.0-15.5); LYMPH # 1.4 10^3/uL (1.5-5.0); LYMPH % 13.9 % (24.0-44.0); MEAN CORPUSCULAR HEMOGLOBIN 34.1 pg (27.0-33.0); MEAN CORPUSCULAR HGB CONC 31.8 g/dl (32.0-36.5); MEAN CORPUSCULAR VOLUME 107.3 fl (80.0-96.0); MONO # 1.1 10^3/uL (0.0-0.8); MONO % 10.6 % (0.0-5.0); NEUTROPHILS # 7.4 10^3/uL (1.5-8.5); NEUTROPHILS % 72.4 % (36.0-66.0); PLATELET COUNT, AUTOMATED 283 10^3/uL (150-450); RED BLOOD COUNT 3.02 10^6/uL (4.00-5.40); WHITE BLOOD COUNT 10.2 10^3/uL (4.0-10.0)
[2019-01-06 08:45] LABS: ALBUMIN 3.1 GM/DL (3.2-5.2); ALT/SGPT 19 U/L (12-78); BILIRUBIN,TOTAL 0.6 MG/DL (0.2-1.0); BLOOD UREA NITROGEN 17 MG/DL (7-18); CALCIUM LEVEL 9.3 MG/DL (8.8-10.2); CARBON DIOXIDE LEVEL 28 MEQ/L (21-32); CHLORIDE LEVEL 108 MEQ/L (98-107); CREATININE FOR GFR 0.75 MG/DL (0.55-1.30); GLOMERULAR FILTRATION RATE > 60.0 (>39); GLUCOSE, FASTING 105 MG/DL (70-100); POTASSIUM SERUM 4.1 MEQ/L (3.5-5.1); SODIUM LEVEL 140 MEQ/L (136-145)
--- NOTE | 2019-01-06 09:05 | ONC.PHACK ---
CHEMO ADMIN CHECKLIST Order Contains Pt ID: Name, Order on Chemo Order Form?: Yes Order Form Includes ALL: Correct Tx Day, Correct Date, Correct Cycle Number Pt ID on Order form Matches: Pt ID on PHA Label Med on Chemo OrderForm Matches: PHA Label, Med Used for Preparation [facility] Jan 06, 2019 09:05
--- NOTE | 2019-01-07 08:47 | MEDONC ---
HEMATOLOGY/ONCOLOGY PROGRESS NOTE DATE: 01/06/2019 This is a very pleasant 73-year-old white female who is here today on followup and evaluation of stage III locally advanced pancreatic ductal carcinoma. The patient is currently on a treatment regimen with gemcitabine and paclitaxel, please refer to her progress note of 12/30/2018. In the interval since her last visit she had had her last chemotherapy held due to platelet counts. Her chief complaint was pain in the mid abdominal area that was responsive to a temporary celiac plexus block. She has had no nausea, vomiting, diarrhea, hemoptysis, change in color or caliber of her stool. The remainder of her 12-point review of systems is otherwise negative. On her physical examination temperature is 98.4, pulse is 76, respiratory rate is 16, BP is 127/72, pulse oximetry is 68, oxygen sat is 98% on room air. On her physical examination her ECOG is about 1/4. She has somewhat of a pallor but no jaundice. PHYSICAL EXAMINATION: CONSTITUTIONAL: ECOG status 0/4 HEENT: NC. AT, PERRL, EOMI, sclera is white, nonicteric, nares intact, oropharynx clear, no thrush, no buccal lesions, tongue without lesions, facial area without abnormalities. NECK: Trachea midline. No thyromegaly. No masses. CHEST: Normal AP diameter. No truncal lesions noted. No rales, rhonchi or wheezes noted. Clear to auscultation and percussion. CV: S1 and S2 appreciated, no murmurs, gallops or rubs. Rhythm RR. ABDOMEN: Soft, nontender. No HSM. No ascites. No guarding or rebound. : No CVA tenderness. Normal external genitalia, normal secondary sexual characteristics. EXTREMITIES: Upper extremities: No edema, swelling, abnormalities. Lower extremities show no cyanosis, clubbing or edema. No varicosities. Good capillary filling noted on right and left lower extremity. NEUROLOGICAL: Cranial nerves II- XII intact. No focal deficits, motor and sensory intact, no tremor. VASCULAR: Pulses equal and present in upper extremities and lower extremities. Good capillary filling in lower extremities. No carotid bruits. No abdominal bruits. MUSCULOSKELETAL: No point tenderness. Normal spinal alignment. Range of motion joints, no limitation. SKIN: No lesions, rashes noted. PSYCH: No agitation, normal behavior. Patient has no signs of any ascites, guarding or rebound in the abdominal area. Laboratories today show a WBC count of 10.2, hemoglobin of 10 over 32, platelet counts are 283,000, neutrophils are 72%, absolute neutrophil count is 7400, creatinine is 0.75, BUN is 140, potassium is 4.1. ASSESSMENT 1. Hypoproteinemia. 2. Thrombocytopenia, resolved from 12/30/2018. PLAN: Is to continue with her chemotherapy today. The patient is now due for a delayed cycle two, day 15. Plan will to be to have the patient followup after today's visit in 2 weeks, get a CBC, CMP, LDH. After three cycles the patient will be restaged for disease. Please also add a CA 19-9. Electronically Signed by Letitia Isaacs MD 01/08/2019 09:16 A DD: Letitia Isaacs MD 01/06/2019 03:08 P DT: [email or web address] 01/07/2019 08:06 A CC: Maci Roberts NP
[2019-01-20 09:19] VITALS: BP 124/69
[2019-01-20 09:23] LABS: BASO % 0.5 % (0.0-1.0); EOS # 0.1 10^3/uL (0.0-0.5); EOS % 1.6 % (0.0-3.0); HEMATOCRIT 31.9 % (36.0-47.0); LYMPH # 1.5 10^3/uL (1.5-5.0); LYMPH % 18.9 % (24.0-44.0); MEAN CORPUSCULAR HEMOGLOBIN 34.1 pg (27.0-33.0); MEAN CORPUSCULAR HGB CONC 31.3 g/dl (32.0-36.5); MEAN CORPUSCULAR VOLUME 108.9 fl (80.0-96.0); MONO # 0.6 10^3/uL (0.0-0.8); MONO % 7.8 % (0.0-5.0); NEUTROPHILS # 5.7 10^3/uL (1.5-8.5); NEUTROPHILS % 70.8 % (36.0-66.0); PLATELET COUNT, AUTOMATED 154 10^3/uL (150-450); RED BLOOD COUNT 2.93 10^6/uL (4.00-5.40); WHITE BLOOD COUNT 8.1 10^3/uL (4.0-10.0)
[2019-01-20 09:47] LABS: ALBUMIN 3.2 GM/DL (3.2-5.2); ALT/SGPT 26 U/L (12-78); BILIRUBIN,TOTAL 0.8 MG/DL (0.2-1.0); BLOOD UREA NITROGEN 18 MG/DL (7-18); CARBON DIOXIDE LEVEL 27 MEQ/L (21-32); CHLORIDE LEVEL 109 MEQ/L (98-107); CREATININE FOR GFR 0.78 MG/DL (0.55-1.30); GLOMERULAR FILTRATION RATE > 60.0 (>39); GLUCOSE, FASTING 139 MG/DL (70-100); POTASSIUM SERUM 3.9 MEQ/L (3.5-5.1); SODIUM LEVEL 142 MEQ/L (136-145); TOTAL PROTEIN 6.7 GM/DL (6.4-8.2)
--- NOTE | 2019-01-20 10:43 | ONC.PHACK ---
CHEMO ADMIN CHECKLIST Order Contains Pt ID: Name, Order on Chemo Order Form?: Yes Order Form Includes ALL: Correct Tx Day, Correct Date, Correct Cycle Number Pt ID on Order form Matches: Pt ID on PHA Label Med on Chemo OrderForm Matches: PHA Label, Med Used for Preparation [facility] Jan 20, 2019 10:43
--- NOTE | 2019-01-20 13:42 | MEDONC ---
DATE: 01/20/2019 REASON FOR FOLLOWUP: Followup of pancreatic cancer. This 73-year-old female patient has a history of a recent diagnosis of stage III local advanced pancreatic ductal carcinoma. The patient is currently on treatment regimen with gemcitabine and paclitaxel. Treatment was held last time because of thrombocytopenia. Currently she came with no major complaints. She had a nerve block for her rib pain and currently tolerating pain very well and no other associated symptoms. PHYSICAL EXAMINATION: Normal vitals. Chest shows normal breath sounds. No wheezing, rhonchi or crackles. Heart exam revealed normal S1 and S2 with no murmur. Abdomen showed no tenderness or rigidity. No organomegaly. LABS: Showed today as white count of 8.1, hemoglobin of 10, hematocrit of 31 and MCV of 108 and a platelet count of 154. Normal serum chemistry function, kidney function and liver function. ASSESSMENT/PLAN: Local advanced stage III pancreatic cancer for cycle three of chemotherapy. She is going to receive gemcitabine and nab-paclitaxel today. The patient is going to be seen next week for week two of cycle three of chemotherapy. Electronically Signed by Ivan Horta MD 01/20/2019 02:36 P DD: Ivan Horta MD 01/20/2019 10:57 A DT: [email or web address] 01/20/2019 01:24 P CC:
[2019-01-27 09:46] LABS: BASO # 0.1 10^3/uL (0.0-0.2); BASO % 0.7 % (0.0-1.0); EOS # 0.1 10^3/uL (0.0-0.5); HEMATOCRIT 30.3 % (36.0-47.0); HEMOGLOBIN 9.6 g/dl (12.0-15.5); LYMPH # 2.1 10^3/uL (1.5-5.0); LYMPH % 20.7 % (24.0-44.0); MEAN CORPUSCULAR HEMOGLOBIN 34.8 pg (27.0-33.0); MEAN CORPUSCULAR HGB CONC 31.7 g/dl (32.0-36.5); MEAN CORPUSCULAR VOLUME 109.8 fl (80.0-96.0); MONO # 1.3 10^3/uL (0.0-0.8); MONO % 12.8 % (0.0-5.0); NEUTROPHILS # 5.9 10^3/uL (1.5-8.5); NEUTROPHILS % 57.7 % (36.0-66.0); PLATELET COUNT, AUTOMATED 152 10^3/uL (150-450); RED BLOOD COUNT 2.76 10^6/uL (4.00-5.40); WHITE BLOOD COUNT 10.2 10^3/uL (4.0-10.0)
[2019-01-27 10:10] VITALS: BP 118/71
[2019-01-27 10:10] LABS: ALT/SGPT 34 U/L (12-78); BILIRUBIN,TOTAL 0.6 MG/DL (0.2-1.0); BLOOD UREA NITROGEN 16 MG/DL (7-18); CALCIUM LEVEL 9.3 MG/DL (8.8-10.2); CARBON DIOXIDE LEVEL 29 MEQ/L (21-32); CHLORIDE LEVEL 109 MEQ/L (98-107); CREATININE FOR GFR 0.75 MG/DL (0.55-1.30); GLOMERULAR FILTRATION RATE > 60.0 (>39); GLUCOSE, FASTING 110 MG/DL (70-100); SODIUM LEVEL 142 MEQ/L (136-145); TOTAL PROTEIN 6.2 GM/DL (6.4-8.2)
--- NOTE | 2019-01-27 10:43 | ONC.PHACK ---
CHEMO ADMIN CHECKLIST Order Contains Pt ID: Name, Order on Chemo Order Form?: Yes Order Form Includes ALL: Correct Tx Day, Correct Date, Correct Cycle Number Pt ID on Order form Matches: Pt ID on PHA Label Med on Chemo OrderForm Matches: PHA Label, Med Used for Preparation [facility] Jan 27, 2019 10:43
--- NOTE | 2019-01-28 08:39 | MEDONC ---
ONCOLOGY FOLLOWUP NOTE DATE OF SERVICE: 01/27/2019 REASON FOR FOLLOWUP: Followup of pancreatic cancer on chemotherapy. This is a 73-year-old female patient who has a history of a recent diagnosis stage 3, locally advanced pancreatic ductal carcinoma. The patient is currently on treatment regimen with Gemzar and Taxol. She came with no major complaints. She had a nerve block for her rib pain and currently is tolerating it very well without any other associated symptoms. PHYSICAL EXAMINATION: VITAL SIGNS: Stable. LUNGS: Normal breath sounds. No wheezing, rhonchi or crackles. CARDIOVASCULAR: S1, S2 heard. No murmur. No gallop. ABDOMEN: Soft, nontender. No organomegaly. LABORATORY DATA: WBC 10.2 thousand, hemoglobin 9.6, platelets 152,000. Normal BUN and creatinine. IMPRESSION AND PLAN 1. Locally advanced stage III pancreatic cancer, cycle 3, week 2 chemotherapy. The patient will receive Gemzar and Abraxane today. The patient will receive two more cycles of the same chemotherapy. Electronically Signed by Angélica Patrick MD 01/30/2019 04:37 P DD: Angélica Patrick MD 01/27/2019 05:41 P DT: [email or web address] 01/28/2019 08:08 A CC:
[2019-02-03 10:47] VITALS: BP 132/80
[2019-02-03 10:58] LABS: BASO % 0.4 % (0.0-1.0); EOS # 0.1 10^3/uL (0.0-0.5); EOS % 1.1 % (0.0-3.0); HEMATOCRIT 28.7 % (36.0-47.0); LYMPH # 1.4 10^3/uL (1.5-5.0); LYMPH % 31.1 % (24.0-44.0); MEAN CORPUSCULAR HEMOGLOBIN 34.6 pg (27.0-33.0); MEAN CORPUSCULAR HGB CONC 31.4 g/dl (32.0-36.5); MEAN CORPUSCULAR VOLUME 110.4 fl (80.0-96.0); MONO # 0.7 10^3/uL (0.0-0.8); MONO % 14.7 % (0.0-5.0); NEUTROPHILS # 2.3 10^3/uL (1.5-8.5); NEUTROPHILS % 51.4 % (36.0-66.0); WHITE BLOOD COUNT 4.6 10^3/uL (4.0-10.0)
[2019-02-03 11:14] LABS: PLATELET COUNT, AUTOMATED 50 10^3/uL (150-450)
[2019-02-03 11:22] LABS: ALBUMIN 3.1 GM/DL (3.2-5.2); ALT/SGPT 30 U/L (12-78); BILIRUBIN,TOTAL 0.8 MG/DL (0.2-1.0); BLOOD UREA NITROGEN 13 MG/DL (7-18); CALCIUM LEVEL 8.8 MG/DL (8.8-10.2); CARBON DIOXIDE LEVEL 29 MEQ/L (21-32); CHLORIDE LEVEL 107 MEQ/L (98-107); CREATININE FOR GFR 0.78 MG/DL (0.55-1.30); GLOMERULAR FILTRATION RATE > 60.0 (>39); GLUCOSE, FASTING 98 MG/DL (70-100); POTASSIUM SERUM 3.9 MEQ/L (3.5-5.1); SODIUM LEVEL 140 MEQ/L (136-145); TOTAL PROTEIN 6.5 GM/DL (6.4-8.2)
--- NOTE | 2019-02-04 07:39 | MEDONC ---
DATE: 02/03/2019 REASON FOR FOLLOWUP: Followup of pancreatic cancer on chemotherapy. Mrs. De Oliveira is a 73-year-old female patient who has a history of a recent diagnosis stage III locally advanced pancreatic ductal carcinoma. The patient is currently on treatment regimen with Gemzar and Taxol. She came here today with no major complaints. She had a nerve block for her rib pain and currently is tolerating it very well without any other associated symptoms. PHYSICAL EXAMINATION: VITAL SIGNS: Temperature 97.3, pulse 67 per minute, respiratory rate 18, blood pressure 132/80, oxygen saturation 97% in room air. HEENT is unremarkable. Head is normocephalic, atraumatic. Sclerae anicteric. NECK: Supple. Jugular venous distention (JVD) negative. No adenopathy in the neck, supraclavicular and axillary areas. LUNGS: Clear to auscultation and percussion. No wheezing, rhonchi or crackles. CARDIOVASCULAR: S1, S2 heard. No murmur. No gallop. ABDOMEN: Soft, nontender. No organomegaly. LABORATORY DATA: CBC showed WBC 4.6, hemoglobin 9, platelet count is 50,000 which is low. Normal BUN and creatinine. IMPRESSION AND PLAN: Locally advanced stage III pancreatic cancer. She is still for chemotherapy today with Gemzar and Abraxane. Because of her low platelet count less than 100,000, at 50,000, which is not adequate to give chemotherapy with risk of bleeding. We will postpone her chemotherapy for 1-2 weeks and reevaluate. Electronically Signed by Angélica Patel MD 02/14/2019 03:29 P DD: Angélica Patel MD 02/03/2019 05:05 P DT: [email or web address] 02/04/2019 07:31 A CC:
[2019-02-10 14:44] VITALS: BP 156/68
[2019-02-10 14:49] LABS: BASO # 0.1 10^3/uL (0.0-0.2); BASO % 0.7 % (0.0-1.0); EOS # 0.1 10^3/uL (0.0-0.5); HEMATOCRIT 31.8 % (36.0-47.0); HEMOGLOBIN 9.9 g/dl (12.0-15.5); LYMPH # 1.4 10^3/uL (1.5-5.0); LYMPH % 18.7 % (24.0-44.0); MEAN CORPUSCULAR HEMOGLOBIN 35.4 pg (27.0-33.0); MEAN CORPUSCULAR HGB CONC 31.1 g/dl (32.0-36.5); MEAN CORPUSCULAR VOLUME 113.6 fl (80.0-96.0); MONO # 0.8 10^3/uL (0.0-0.8); MONO % 10.8 % (0.0-5.0); NEUTROPHILS % 68.5 % (36.0-66.0); PLATELET COUNT, AUTOMATED 269 10^3/uL (150-450); WHITE BLOOD COUNT 7.3 10^3/uL (4.0-10.0)
[2019-02-10 15:22] LABS: ALBUMIN 3.3 GM/DL (3.2-5.2); ALT/SGPT 33 U/L (12-78); BILIRUBIN,TOTAL 0.8 MG/DL (0.2-1.0); BLOOD UREA NITROGEN 18 MG/DL (7-18); CALCIUM LEVEL 8.6 MG/DL (8.8-10.2); CARBON DIOXIDE LEVEL 27 MEQ/L (21-32); CHLORIDE LEVEL 109 MEQ/L (98-107); CREATININE FOR GFR 0.85 MG/DL (0.55-1.30); GLOMERULAR FILTRATION RATE > 60.0 (>39); GLUCOSE, FASTING 233 MG/DL (70-100); POTASSIUM SERUM 4.1 MEQ/L (3.5-5.1); SODIUM LEVEL 142 MEQ/L (136-145); TOTAL PROTEIN 6.5 GM/DL (6.4-8.2)
[2019-02-11 10:14] VITALS: BP 123/63
--- NOTE | 2019-02-12 21:11 | MEDONC ---
HEMATOLOGY/ONCOLOGY PROGRESS FOLLOWUP NOTE: DATE OF SERVICE: 02/10/2019 REASON FOR VISIT: Followup of pancreatic cancer on chemotherapy. Mrs. De Oliveira is a 73-year-old female patient who has a history of recent diagnosis of Stage III locally advanced pancreatic ductal carcinoma. The patient is currently on treatment with a chemotherapy regimen consisting of Gemzar and Taxol. She is receiving day 1, 8 and 15 and one week off. She came here today with no significant complaints, says she is doing well. No headache, dizziness. No fever. Breathing is okay. No chest pain, palpitations. She has slight diarrhea after chemotherapy. Her appetite is fair. PHYSICAL EXAMINATION: Weight 38.1 kg. Temperature 97, pulse 88 per minute, respiratory rate 16 per minute. Blood pressure 136/68. O2 97% on room air. HEENT: She has hair loss from chemotherapy. Head is normocephalic, atraumatic. Sclera anicteric. Mouth and throat are clear. NECK: Supple. Jugular venous distention negative. No adenopathy in the neck. Supraclavicular and axillary ADS. CHEST: Equal movements bilaterally on breathing. Lungs are clear to auscultation and percussion. No wheezing, rhonchi or crackles. CVS: S1 and S2 heard. No murmur, no gallop. Regular rate and rhythm. ABDOMEN: Soft, nontender, no organomegaly. EXTREMITIES: No clubbing. No cyanosis. No edema. LABORATORY DATA: WBC 7.3, hemoglobin 9.9, platelets 269,000. Chemistry: Na 142, K 4.1, creatinine 0.85, BUN 18. IMPRESSION AND PLAN: Locally advanced stage III pancreatic cancer. Last week her chemotherapy was postponed due to thrombocytopenia of 50,000. Today her platelets counts returned to normal. She came late and she cannot be given chemotherapy today. She will be back tomorrow in the morning to receive the last dose of her chemotherapy. She will complete three cycles of chemotherapy with Gemzar and Taxol. She will be followed up in 4 to 6 weeks. She will have restaging of her pancreatic cancer with PET/ CT scan prior to next visit. She completed three cycles of chemotherapy as planned, but the chemotherapy was not continuous and interrupted due to neutropenia and thrombocytopenia. Electronically Signed by Angélica Patel MD 02/14/2019 03:29 P DD: Angélica Patel MD 02/10/2019 03:42 P DT: [email or web address] 02/12/2019 08:42 P CC:
[2019-03-20 07:59] VITALS: BP 144/92
[2019-03-20 09:15] LABS: BASO % 0.4 % (0.0-1.0); EOS # 0.2 10^3/uL (0.0-0.5); EOS % 1.8 % (0.0-3.0); HEMATOCRIT 35.3 % (36.0-47.0); HEMOGLOBIN 10.8 g/dl (12.0-15.5); LYMPH # 1.3 10^3/uL (1.5-5.0); LYMPH % 13.9 % (24.0-44.0); MEAN CORPUSCULAR HEMOGLOBIN 33.9 pg (27.0-33.0); MEAN CORPUSCULAR HGB CONC 30.6 g/dl (32.0-36.5); MEAN CORPUSCULAR VOLUME 110.7 fl (80.0-96.0); MONO # 0.9 10^3/uL (0.0-0.8); NEUTROPHILS # 6.8 10^3/uL (1.5-8.5); NEUTROPHILS % 73.5 % (36.0-66.0); PLATELET COUNT, AUTOMATED 165 10^3/uL (150-450); RED BLOOD COUNT 3.19 10^6/uL (4.00-5.40); WHITE BLOOD COUNT 9.3 10^3/uL (4.0-10.0)
[2019-03-20 10:07] LABS: ALBUMIN 3.4 GM/DL (3.2-5.2); ALT/SGPT 18 U/L (12-78); BILIRUBIN,TOTAL 0.4 MG/DL (0.2-1.0); BLOOD UREA NITROGEN 17 MG/DL (7-18); CALCIUM LEVEL 8.4 MG/DL (8.8-10.2); CARBON DIOXIDE LEVEL 24 MEQ/L (21-32); CHLORIDE LEVEL 112 MEQ/L (98-107); CREATININE FOR GFR 0.77 MG/DL (0.55-1.30); GLOMERULAR FILTRATION RATE > 60.0 (>39); GLUCOSE, FASTING 127 MG/DL (70-100); POTASSIUM SERUM 4.1 MEQ/L (3.5-5.1); SODIUM LEVEL 143 MEQ/L (136-145); TOTAL PROTEIN 6.5 GM/DL (6.4-8.2)
[2019-03-20 12:59] LABS: CA19-9 TUMOR MARKER,CARBOHYDRA 3799.4 U/ML (<35.0)
--- NOTE | 2019-03-23 11:28 | MEDONC ---
DATE OF SERVICE: 03/20/2019 REASON FOR FOLLOWUP: Pancreatic cancer. 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 Saw medical oncology [facility], who recommended Gemcitabine/Abraxane. - 11/19/2018- commenced gemcitabine/Abraxane - day 1, 8, 15 q. 28 days. - 02/09/2019- celiac nerve block. INTERVAL HISTORY: I met the patient for the first time today. Her last dose of chemotherapy was 02/11/2019. The pain that was her upper abdominal pain that was previously 10/10 has improved significantly. At its worst, it is 2-3/10. At its best, it is 0/10 following a nerve block. She states she is still on gabapentin 300 mg p.o. t.i.d. and also takes morphine sulfate 7.5 mg q. 4 hours for pain control. She denies any other gastrointestinal complaints. Has no constipation with her morphine sulfate. She had a recent reevaluation PET scan, which will be reviewed below. She denies any other complaints. REVIEW OF SYSTEMS: Abdominal pain as above. Constitutional: No fevers, no chills, no night sweats, no fatigue, no malaise, no weight loss. Cardiopulmonary: No chest pain, no SOB, no palpitations, no dizziness. No cough. No hemoptysis. Gastrointestinal: No nausea, no vomiting, no constipation, no diarrhea. No hematemesis, no melena, no hematochezia. Genitourinary: No dysuria, no hematuria, no incontinence, no frequency, no urgency. Musculoskeletal: No bony, no muscle, no joint aches. 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 All other systems are negative unless otherwise specified in HPI. PAST MEDICAL HISTORY: Hyperlipidemia, GERD, hypertension, diabetes. MEDICATIONS: Reviewed in EMR. ALLERGIES/DRUG SENSITIVITIES: AUGMENTIN - yeast infection. VITAL SIGNS: Reviewed in EMR - stable. PHYSICAL EXAM: HEENT: Oral mucosa - pink and moist, no conjunctival pallor, sclerae anicteric bilaterally. LYMPHATICS: No cervical, supraclavicular, axillary, or inguinal LAD. LUNGS: Clear to auscultation bilaterally, resonant to percussion bilaterally. HEART: Regular rhythm, no murmurs, no S3/S4, no rubs. ABDOMEN: Soft, nontender, bowel sounds normoactive, no hepatosplenomegaly. EXTREMITIES: No edema bilaterally. Calves nontender bilaterally. SKIN/NAILS: No nail changes. No petechiae/ecchymosis or other skin changes. MUSCULOSKELETAL: Spine nontender to palpation. INVESTIGATIONS: Reviewed in EMR. ASSESSMENT/PLAN: 1. Stage III locally advanced unresectable pancreas ductal carcinoma - Diagnosis and Treatment history as above. - 11/19/2018 commenced gemcitabine/Abraxane - day 1, 8, 15 q. 28 days. 02/09/2019 celiac nerve block. Thus far, the patient has completed three cycles of gemcitabine and Abraxane but was from what I can tell, she was unable to get D15 on schedule for each of the last three cycles. Her last dose of chemotherapy was 02/11/2019. 03/17/2019 PET - Hypermetabolic uptake in pancreatic mass in the body and tail 6.2 SUV uptake surrounding area of celiac axis and superior mesenteric artery, mildly hypermetabolic uptake in the left periaortic region. No hypermetabolic uptake in the liver. No osseous metastases. Of note, a CT abdomen prior to this revealed a 1.3 cm nonspecific node in the left lobe of the liver, which probably represented hemangioma, but a metastatic lesion could not be excluded. Per my discussion with radiology, the mass in the tail decreased from a prior measurement of 2.8 to a current 2.3 cm. The mass in the body is hard to measure, given the noncontrast CT PET. Obtain baseline CA19-9, CMP essentially unremarkable today. Since the patient has tolerated the above regimen without any undescribable side effects, we can proceed with the fourth cycle since there still appears to be encasement of the celiac and superior mesenteric artery, per my discussion with Dr. Germain, the radiologist, and the tumor is unresectable. I do not have a prior CA19-9 for reference. We also discussed obtaining a dedicated contrast-infused CT with pancreatic protocol to obtain new baseline dimensions. The patient was eager to proceed with her next dose of chemotherapy. We will get an updated scan following cycle four to assess disease response. She has had a atiya platelet count in the 40s and 50s by day #15. We will plan on a q 2 weeks schedule and continue her 20% dose reduction and see how she fares. CBC today revealed a normal platelet count of 165. 2. Decreased appetite - the patient is currently on Megace. We discussed stopping this, as it is prothrombotic and can increase a VTE risk with her already prothrombotic pancreatic malignancy. Discussed starting Marinol 2.5 mg p.o. b.i.d. before lunch and dinner. The patient was agreeable. Prescription sent. 3. Analgesia - upper abdomen - s/p celiac plexus block 02/09/2019. Pain significantly improved. The patient still takes morphine sulfate 7.5 mg q. 4 hours, tolerates this well without any constipation. Advised Senokot and Colace twice a day to maintain a bowel regimen. Hold off for diarrhea. Over time, we can see if she can taper off her morphine sulfate. She is also on gabapentin 300 mg p.o. t.i.d. This was increased in the days before the celiac plexus for pain control, but she states it had no effect. We discussed tapering off the gabapentin. She will eliminate one 300-mg tablet every 5 days as long as there is no worsening of her pain. If there is, she is to revert to the last dose level prior to any exacerbation of pain. 4. Macrocytic anemia - multifactorial secondary to cytotoxic chemotherapy, anemia of chronic disease from underlying malignancy. For completion, add B12 and folate - replenish any low stores. FOLLOWUP: For cycle four next week. See me prior to cycle five for clearance with updated imaging. All of the above was relayed to the patient who was given an opportunity to ask questions that were answered to satisfaction. The patient voiced an understanding and agreed to proceed. I spent 40-45 minutes during this visit seeing the patient [id number] and reviewing records. More than 50% of the time was spent in direct [id number] discussion and counseling of the patient. Electronically Signed by Kodi Cheek MD 03/23/2019 06:20 P DD: Kodi Cheek MD 03/20/2019 05:46 P DT: [email or web address] 03/23/2019 10:12 A CC: Maci Roberts NP
[2019-03-26 08:11] VITALS: BP 132/74
[2019-03-26 08:22] LABS: BASO % 0.6 % (0.0-1.0); EOS # 0.2 10^3/uL (0.0-0.5); EOS % 3.5 % (0.0-3.0); HEMATOCRIT 34.1 % (36.0-47.0); HEMOGLOBIN 10.5 g/dl (12.0-15.5); LYMPH # 1.4 10^3/uL (1.5-5.0); LYMPH % 19.9 % (24.0-44.0); MEAN CORPUSCULAR HGB CONC 30.8 g/dl (32.0-36.5); MEAN CORPUSCULAR VOLUME 107.2 fl (80.0-96.0); MONO # 0.7 10^3/uL (0.0-0.8); MONO % 10.7 % (0.0-5.0); NEUTROPHILS # 4.5 10^3/uL (1.5-8.5); NEUTROPHILS % 64.9 % (36.0-66.0); PLATELET COUNT, AUTOMATED 157 10^3/uL (150-450); RED BLOOD COUNT 3.18 10^6/uL (4.00-5.40); WHITE BLOOD COUNT 6.9 10^3/uL (4.0-10.0)
[2019-03-26 08:42] LABS: ALT/SGPT 21 U/L (12-78); BILIRUBIN,TOTAL 0.4 MG/DL (0.2-1.0); BLOOD UREA NITROGEN 17 MG/DL (7-18); CALCIUM LEVEL 8.4 MG/DL (8.8-10.2); CARBON DIOXIDE LEVEL 27 MEQ/L (21-32); CHLORIDE LEVEL 110 MEQ/L (98-107); CREATININE FOR GFR 0.79 MG/DL (0.55-1.30); GLOMERULAR FILTRATION RATE > 60.0 (>39); GLUCOSE, FASTING 130 MG/DL (70-100); SODIUM LEVEL 142 MEQ/L (136-145); TOTAL PROTEIN 6.8 GM/DL (6.4-8.2)
--- NOTE | 2019-03-26 09:28 | ONC.PHACK ---
CHEMO ADMIN CHECKLIST Order Contains Pt ID: Name, Order on Chemo Order Form?: Yes Order Form Includes ALL: Correct Tx Day, Correct Date, Correct Cycle Number Pt ID on Order form Matches: Pt ID on PHA Label Med on Chemo OrderForm Matches: PHA Label, Med Used for Preparation [facility] Mar 26, 2019 09:28
[2019-04-08 09:37] LABS: BASO % 0.5 % (0.0-1.0); EOS # 0.1 10^3/uL (0.0-0.5); EOS % 2.5 % (0.0-3.0); HEMATOCRIT 31.4 % (36.0-47.0); HEMOGLOBIN 9.9 g/dl (12.0-15.5); LYMPH # 1.2 10^3/uL (1.5-5.0); LYMPH % 30.7 % (24.0-44.0); MEAN CORPUSCULAR HEMOGLOBIN 32.8 pg (27.0-33.0); MEAN CORPUSCULAR HGB CONC 31.5 g/dl (32.0-36.5); MONO # 0.5 10^3/uL (0.0-0.8); MONO % 11.4 % (0.0-5.0); NEUTROPHILS # 2.2 10^3/uL (1.5-8.5); NEUTROPHILS % 54.4 % (36.0-66.0); PLATELET COUNT, AUTOMATED 130 10^3/uL (150-450); RED BLOOD COUNT 3.02 10^6/uL (4.00-5.40)
[2019-04-08 10:07] LABS: ALT/SGPT 30 U/L (12-78); BILIRUBIN,TOTAL 0.6 MG/DL (0.2-1.0); BLOOD UREA NITROGEN 13 MG/DL (7-18); CALCIUM LEVEL 8.8 MG/DL (8.8-10.2); CARBON DIOXIDE LEVEL 24 MEQ/L (21-32); CHLORIDE LEVEL 109 MEQ/L (98-107); CREATININE FOR GFR 0.69 MG/DL (0.55-1.30); GLOMERULAR FILTRATION RATE > 60.0 (>39); GLUCOSE, FASTING 133 MG/DL (70-100); POTASSIUM SERUM 3.7 MEQ/L (3.5-5.1); SODIUM LEVEL 142 MEQ/L (136-145); TOTAL PROTEIN 6.5 GM/DL (6.4-8.2)
[2019-04-08 10:17] VITALS: BP 111/65
--- NOTE | 2019-04-08 11:32 | ONC.PHACK ---
CHEMO ADMIN CHECKLIST Order Contains Pt ID: Name, Order on Chemo Order Form?: Yes Order Form Includes ALL: Correct Tx Day, Correct Date, Correct Cycle Number Pt ID on Order form Matches: Pt ID on PHA Label Med on Chemo OrderForm Matches: PHA Label, Med Used for Preparation [facility] Apr 08, 2019 11:32
--- NOTE | 2019-04-09 12:33 | MEDONC ---
DATE OF SERVICE: 04/08/2019 REASON FOR FOLLOWUP: Pancreatic cancer. 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 Saw medical oncology [facility], who recommended Gemcitabine/Abraxane. - 11/19/2018 - commenced gemcitabine/Abraxane - day 1, 8, 15 q. 28 days. - 02/09/2019 - celiac nerve block. - 03/26/2019, resumed gemcitabine/Abraxane - q. 2 week schedule, since patient, in prior 3 cycles could not tolerate day 15 due to prohibitive thrombocytopenia. INTERVAL HISTORY: Patient presents in followup today. She tolerated cycle 4 of chemotherapy well. Her abdominal pain remains under control, 3/10 at worse, 0/10 at best, following the above nerve block. She tried tapering off the gabapentin, which she was taking at 300 mg p.o. t.i.d. Reducing one tablet increased her pain 8/10, and then resumed it t.i.d. Also takes morphine sulfate 7.5 mg p.o. q. 4 hours. States she needs no further titration of her pain. Denies any other gastrointestinal complaints. No constipation with her narcotics. Her appetite she states has improved significantly, the Marinol is cost prohibitive and wants to know if she can stop this. Has had a 3-pound weight gain since 01/2019. Denies any other complaints. REVIEW OF SYSTEMS: Constitutional: No fevers, no chills, no night sweats, no fatigue, no malaise, no weight loss. Cardiopulmonary: No chest pain, no SOB, no palpitations, no dizziness. No cough. No hemoptysis. Gastrointestinal: Abdominal pain as above. No nausea, no vomiting, no constipation, no diarrhea. No hematemesis, no melena, no hematochezia. Genitourinary: No dysuria, no hematuria, no incontinence, no frequency, no urgency. Musculoskeletal: No bony, no muscle, no joint aches. 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 All other systems are negative unless otherwise specified in HPI. PAST MEDICAL HISTORY: Hyperlipidemia, GERD, hypertension, diabetes. MEDICATIONS: Reviewed in EMR. ALLERGIES/DRUG SENSITIVITIES: AUGMENTIN - yeast infection. VITAL SIGNS: Reviewed in EMR - stable. PHYSICAL EXAM: HEENT: Oral mucosa - pink and moist, no conjunctival pallor, sclerae anicteric bilaterally. LYMPHATICS: Prior exam - No cervical, supraclavicular, axillary, or inguinal LAD. LUNGS: Clear to auscultation bilaterally, resonant to percussion bilaterally. HEART: Regular rhythm, no murmurs, no S3/S4, no rubs. ABDOMEN: Soft, nontender, bowel sounds normoactive, no hepatosplenomegaly. EXTREMITIES: No edema bilaterally. Calves nontender bilaterally. SKIN/NAILS: No nail changes. No petechiae/ecchymosis or other skin changes. MUSCULOSKELETAL: Spine nontender to palpation. INVESTIGATIONS: Reviewed in EMR. ASSESSMENT/PLAN: 1. 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 Diagnosis and Treatment history as above. Currently on gemcitabine/Abraxane q. 2 weeks. 03/26/2019, updated CT A/P - pancreatic mass decreased in size along with decrease in soft tissue fullness surrounding the celiac artery and SMA. Unchanged, mildly dilated pancreatic duct. Single hepatic nodule, unchanged in size, possibly hemangioma. CBC today, mild stable anemia with mild thrombocytopenia 130 - non-prohibitive. Patient is due for cycle 5 tomorrow, but was placed on the schedule today. Per JUANCHO Haro, no issues with insurance. Clinically, she is stable with no toxicities that preclude treatment - therefore, proceed with cycle 5. CMP essentially unremarkable. Following cycle 8, we will update her CA19-9 and obtain re-evaluation contrast-infused CTs and PET scan. 2. Decreased appetite - currently on Marinol 2.5 mg p.o. b.i.d. 2 weeks ago, stopped her Megace at it is prothrombotic and can increase her VTE risk with already prothrombotic pancreatic malignancy. Patient currently states her appetite is good, does not feel like she requires the assistance of Marinol, especially with its high copay. She can try reducing Marinol to once a day for a week and if she does well without any further appetite issues, she can stop this altogether, and we will monitor her appetite and weight. 3. Analgesia, upper abdomen - s/p celiac plexus block 02/09/2019. Pain currently improved on morphine sulfate 7.5 mg q. 4 hours without any constipation. Currently on Senokot and Colace twice a day - hold off for any diarrhea. Continue gabapentin 300 mg p.o. t.i.d. She attempted a taper, but reducing even to b.i.d. for 2 days, which increased her pain to 8/10, thus, resumed t.i.d. and has been doing well since. 4. Macrocytic anemia - multifactorial secondary to cytotoxic chemotherapy, anemia of chronic disease from underlying malignancy. 03/26/2019, B12 1135, folate 22 - monitor counts. 5. Dilated ovarian veins bilaterally, left more than right, possible pelvic congestion syndrome noted on 03/26/2019 CT pelvis. Patient is currently asymptomatic. If she becomes symptomatic, will refer to vascular surgery for further evaluation/management. FOLLOWUP: 2 weeks with updated labs for toxicity check and clearance for cycle 6. All of the above was relayed to the patient who was given an opportunity to ask questions that were answered to satisfaction. The patient voiced an understanding and agreed to proceed. Electronically Signed by Kodi Cheek MD 04/14/2019 12:56 P DD: Kodi Cheek MD 04/08/2019 11:20 A DT: [email or web address] 04/09/2019 12:03 P CC: Maci Roberts NP
[2019-04-10 13:31] VITALS: BP 125/72
[2019-04-22 08:00] VITALS: BP 114/66
[2019-04-22 08:08] LABS: BASO % 0.6 % (0.0-1.0); EOS # 0.1 10^3/uL (0.0-0.5); EOS % 1.9 % (0.0-3.0); HEMOGLOBIN 9.3 g/dl (12.0-15.5); LYMPH # 1.2 10^3/uL (1.5-5.0); LYMPH % 25.2 % (24.0-44.0); MEAN CORPUSCULAR HEMOGLOBIN 32.6 pg (27.0-33.0); MEAN CORPUSCULAR HGB CONC 32.1 g/dl (32.0-36.5); MEAN CORPUSCULAR VOLUME 101.8 fl (80.0-96.0); MONO # 0.6 10^3/uL (0.0-0.8); NEUTROPHILS # 2.9 10^3/uL (1.5-8.5); NEUTROPHILS % 60.1 % (36.0-66.0); PLATELET COUNT, AUTOMATED 151 10^3/uL (150-450); RED BLOOD COUNT 2.85 10^6/uL (4.00-5.40); WHITE BLOOD COUNT 4.8 10^3/uL (4.0-10.0)
[2019-04-22 08:25] LABS: ALBUMIN 2.8 GM/DL (3.2-5.2); ALT/SGPT 27 U/L (12-78); BILIRUBIN,TOTAL 0.7 MG/DL (0.2-1.0); BLOOD UREA NITROGEN 13 MG/DL (7-18); CALCIUM LEVEL 8.8 MG/DL (8.8-10.2); CARBON DIOXIDE LEVEL 27 MEQ/L (21-32); CHLORIDE LEVEL 109 MEQ/L (98-107); CREATININE FOR GFR 0.74 MG/DL (0.55-1.30); GLOMERULAR FILTRATION RATE > 60.0 (>39); GLUCOSE, FASTING 144 MG/DL (70-100); POTASSIUM SERUM 3.8 MEQ/L (3.5-5.1); SODIUM LEVEL 140 MEQ/L (136-145); TOTAL PROTEIN 6.2 GM/DL (6.4-8.2)
--- NOTE | 2019-04-22 09:57 | ONC.PHACK ---
CHEMO ADMIN CHECKLIST Order Contains Pt ID: Name, Order on Chemo Order Form?: Yes Order Form Includes ALL: Correct Tx Day, Correct Date, Correct Cycle Number Pt ID on Order form Matches: Pt ID on PHA Label Med on Chemo OrderForm Matches: PHA Label, Med Used for Preparation [facility] Apr 22, 2019 09:57
--- NOTE | 2019-04-23 13:48 | MEDONC ---
DATE OF SERVICE: 04/22/2019 REASON FOR FOLLOWUP: Pancreatic cancer. 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 Saw medical oncology [facility], who recommended Gemcitabine/Abraxane. - 11/19/2018 - commenced gemcitabine/Abraxane - day 1, 8, 15 q. 28 days. - 02/09/2019 - celiac nerve block. - 03/26/2019, resumed gemcitabine/Abraxane - q. 2 week schedule, since patient, in prior 3 cycles could not tolerate day 15 due to prohibitive thrombocytopenia. INTERVAL HISTORY: The patient returns in followup today. She tolerated cycle 5 of chemotherapy well with the exception of two episodes of diarrhea by day 4 - states it stopped on its own. Did not take any Imodium. Abdominal pain continues to remain under control, 3/10 at worst, 0/10 at best, following her nerve block, continues on gabapentin 300 mg g p.o. t.i.d. and morphine sulfate 7.5 mg p.o. q. 4 hours. Reiterates that she needs no further titration of her pain medications. No constipation with narcotics. Stopped her Marinol 2 weeks ago. States appetite is good. Gained 2 pounds in the last 2 weeks. Today, the patient reports she has had a history of right hand tremors - previously not evaluated by neurology, today she states it is increased in the last 1 month with intermittently dropping small items occasionally. Denies any other complaints. REVIEW OF SYSTEMS: Constitutional: No fevers, no chills, no night sweats, no fatigue, no malaise, no weight loss. Cardiopulmonary: No chest pain, no SOB, no palpitations, no dizziness. No cough. No hemoptysis. Gastrointestinal: Abdominal pain as above. No nausea, no vomiting, no constipation, no diarrhea. No hematemesis, no melena, no hematochezia. Genitourinary: No dysuria, no hematuria, no incontinence, no frequency, no urgency. Musculoskeletal: No bony, no muscle, no joint aches. METAL PRODUCTS FABRICATOR ASSEMBLER: No tingling, no weakness, no numbness, no headaches, no dizziness, no seizures, no speech, no visual disturbances. All other systems are negative unless otherwise specified in HPI. PAST MEDICAL HISTORY: Hyperlipidemia, GERD, hypertension, diabetes, right hand tremors. MEDICATIONS: Reviewed in EMR. ALLERGIES/DRUG SENSITIVITIES: AUGMENTIN - yeast infection. VITAL SIGNS: Reviewed in EMR - stable. PHYSICAL EXAM: HEENT: Oral mucosa - pink and moist, no conjunctival pallor, sclerae anicteric bilaterally. LYMPHATICS: Prior exam - No cervical, supraclavicular, axillary, or inguinal LAD. LUNGS: Clear to auscultation bilaterally, resonant to percussion bilaterally. HEART: Regular rhythm, no murmurs, no S3/S4, no rubs. ABDOMEN: Soft, nontender, bowel sounds normoactive, no hepatosplenomegaly. EXTREMITIES: No edema bilaterally. Calves nontender bilaterally. SKIN/NAILS: No nail changes. No petechiae/ecchymosis or other skin changes. MUSCULOSKELETAL: Spine nontender to palpation. METAL PRODUCTS FABRICATOR ASSEMBLER: Right hand intention tremors, none at rest. Gait WNL. Strength 4+/5 - RUE, WNL in other extremities. Cranial nerves II-XII grossly intact. INVESTIGATIONS: Reviewed in EMR. ASSESSMENT/PLAN: 1. 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 Diagnosis and Treatment history as above. Currently on gemcitabine/Abraxane q. 2 weeks. Tolerated cycle 5 well with the exception of grade 1 diarrhea - two episodes in 1 day self-limited resolved on its own without use of Imodium. CBC today stable. WBC 4.2, hemoglobn 9.3, platelets 151 - no prohibitive cytopenias. The patient seems to be tolerating q. 2 week schedule much better than the weekly schedule. Proceed with cycle 6 today. Following cycle 8, plan to update CA19-9 and re-evaluation contrast-infused CTs and PET scan. 2. Decreased appetite - had improved with Megace and then stabilized. Stopped Megace 02/2019, given its prothrombotic tendencies, switched to Marinol 2.5 mg p.o. b.i.d. which she took for a week and then stopped due to the high copay. 2 weeks ago, she stopped Marinol entirely - states appetite is good. Has no further issues, continues to gain weight. 3. Analgesia, upper abdomen - s/p celiac plexus block 02/09/2019. Pain currently under control on morphine sulfate 7.5 mg q. 4 hours without any constipation and gabapentin 300 mg p.o. t.i.d. Currently on Senokot and Colace twice a day - hold off for diarrhea. 4. Macrocytic anemia - multifactorial secondary to cytotoxic chemotherapy, anemia of chronic disease from underlying malignancy. 03/26/2019, B12 1135, folate 22 - monitor counts. - hemoglobin stable 9-10 range. 5. Dilated ovarian veins bilaterally, left more than right, possible pelvic congestion syndrome noted on 03/26/2019 CT pelvis. Patient is currently asymptomatic. If she becomes symptomatic, will refer to vascular surgery for further evaluation/management. 6. Right hand tremors - the patient reports today she has had this for several years, in the last month it is increased, she occasionally drops small items. Obtain MRI brain and refer to neurology. FOLLOWUP: 2 weeks, sooner p.yung All of the above was relayed to the patient who was given an opportunity to ask questions that were answered to satisfaction. The patient voiced an understanding and agreed to proceed. Electronically Signed by Kodi Cheek MD 04/25/2019 08:20 A DD: Kodi Cheek MD 04/22/2019 08:35 A DT: aml 04/23/2019 10:15 A CC: Maci Roberts NP
[2019-05-06 08:33] VITALS: BP 128/74
[2019-05-06 08:43] LABS: BASO % 0.6 % (0.0-1.0); EOS # 0.2 10^3/uL (0.0-0.5); EOS % 3.4 % (0.0-3.0); HEMATOCRIT 28.9 % (36.0-47.0); LYMPH # 1.1 10^3/uL (1.5-5.0); LYMPH % 20.1 % (24.0-44.0); MEAN CORPUSCULAR HEMOGLOBIN 31.7 pg (27.0-33.0); MEAN CORPUSCULAR HGB CONC 31.1 g/dl (32.0-36.5); MEAN CORPUSCULAR VOLUME 101.8 fl (80.0-96.0); MONO # 0.7 10^3/uL (0.0-0.8); MONO % 12.3 % (0.0-5.0); NEUTROPHILS # 3.3 10^3/uL (1.5-8.5); NEUTROPHILS % 63.2 % (36.0-66.0); PLATELET COUNT, AUTOMATED 152 10^3/uL (150-450); RED BLOOD COUNT 2.84 10^6/uL (4.00-5.40); WHITE BLOOD COUNT 5.3 10^3/uL (4.0-10.0)
[2019-05-06 09:13] LABS: ALBUMIN 2.7 GM/DL (3.2-5.2); ALT/SGPT 25 U/L (12-78); BILIRUBIN,TOTAL 0.8 MG/DL (0.2-1.0); BLOOD UREA NITROGEN 10 MG/DL (7-18); CALCIUM LEVEL 8.6 MG/DL (8.8-10.2); CARBON DIOXIDE LEVEL 29 MEQ/L (21-32); CHLORIDE LEVEL 107 MEQ/L (98-107); CREATININE FOR GFR 0.68 MG/DL (0.55-1.30); GLOMERULAR FILTRATION RATE > 60.0 (>39); GLUCOSE, FASTING 130 MG/DL (70-100); POTASSIUM SERUM 3.8 MEQ/L (3.5-5.1); SODIUM LEVEL 140 MEQ/L (136-145); TOTAL PROTEIN 5.9 GM/DL (6.4-8.2)
[2019-05-06 10:45] LABS: PERCENT SATURATION 26.1 % (13.2-45.0)
--- NOTE | 2019-05-08 15:09 | MEDONC ---
DATE OF SERVICE: 05/06/2019 REASON FOR FOLLOWUP: Pancreatic cancer. 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 Saw medical oncology [facility], who recommended Gemcitabine/Abraxane. - 11/19/2018 - commenced gemcitabine/Abraxane - day 1, 8, 15 q. 28 days. - 02/09/2019 - celiac nerve block. - 03/26/2019, resumed gemcitabine/Abraxane - q. 2 week schedule, since patient, in prior 3 cycles could not tolerate day 15 due to prohibitive thrombocytopenia. INTERVAL HISTORY: The patient returns in followup today. She tolerated cycle 6 of the chemotherapy well with exception of two episodes of diarrhea by day 6, took two tablets of Imodium which controlled the diarrhea without any further recurrence. By day 4 she had one episode of vomiting, took Zofran b.i.d. until day 5, states had no further episodes, did not require the use of breakthrough Compazine. Abdominal pain continues to remain under control, 3/10 at worst, 0/10 at best, following her nerve block, but continues on gabapentin 300 mg g p.o. t.i.d. and morphine sulfate 7.5 mg p.o. q. 4 hours. States she needs no further titration of her pain medications. No constipation with the narcotics. Stopped Marinol 4 weeks ago. States her appetite is good. Weight is stable. No further weight loss. Reported right hand tremors at her last visit stating back several years though increased in the last 1 month with intermittently dropping of small items occasionally, no further worsening since her last visit. Had MRI brain which will be reviewed below. Denies any other complaints. REVIEW OF SYSTEMS: Constitutional: No fevers, no chills, no night sweats, no fatigue, no malaise, no weight loss. Cardiopulmonary: No chest pain, no SOB, no palpitations, no dizziness. No cough. No hemoptysis. Gastrointestinal: Abdominal pain as above. No nausea, no vomiting, no constipation, no diarrhea. No hematemesis, no melena, no hematochezia. Genitourinary: No dysuria, no hematuria, no incontinence, no frequency, no urgency. Musculoskeletal: No bony, no muscle, no joint aches. MUMPS DEVELOPER: No tingling, no weakness, no numbness, no headaches, no dizziness, no seizures, no speech, no visual disturbances. All other systems are negative unless otherwise specified in HPI. PAST MEDICAL HISTORY: Hyperlipidemia, GERD, hypertension, diabetes, right hand tremors. MEDICATIONS: Reviewed in EMR. ALLERGIES/DRUG SENSITIVITIES: AUGMENTIN - yeast infection. VITAL SIGNS: Reviewed in EMR - stable. PHYSICAL EXAM: HEENT: Oral mucosa - pink and moist, no conjunctival pallor, sclerae anicteric bilaterally. LYMPHATICS: Not re-examined today. Per prior exam - No cervical, supraclavicular, axillary, or inguinal LAD. LUNGS: Clear to auscultation bilaterally, resonant to percussion bilaterally. HEART: Regular rhythm, no murmurs, no S3/S4, no rubs. ABDOMEN: Soft, nontender, bowel sounds normoactive, no hepatosplenomegaly. EXTREMITIES: No edema bilaterally. Calves nontender bilaterally. SKIN/NAILS: No nail changes. No petechiae/ecchymosis or other skin changes. MUSCULOSKELETAL: Spine nontender to palpation. MUMPS DEVELOPER: Not re-examined today. Right hand intention tremors, none at rest. Gait WNL. Strength 4+/5 - RUE, WNL in other extremities. Cranial nerves II-XII grossly intact. INVESTIGATIONS: Reviewed in EMR. ASSESSMENT AND PLAN: 1. 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 Diagnosis and Treatment history as above. Currently on gemcitabine/Abraxane q. 2 weeks. Tolerated cycle well with the exception of grade 1 diarrhea and grade 1 vomiting - resolved with Imodium and Zofran as prescribed without any further recurrence. CBC - no prohibitive cytopenias. The patient is tolerating her q. 2 week schedule much better without any prohibitive thrombocytopenia. CMP unremarkable. Proceed with cycle 7. Following cycle 8, plan to update CA19-9 and re-evaluation contrast-infused CTs and PET scan. Of note, the patient has previously not met with pancreatico-biliary surgery. If she has a good enough response and her pancreatic mass is no longer encasing the celiac artery and superior mesenteric artery, consider evaluation by surgery to determine if patient has now become a resectable candidate. 2. Previous decreased appetite has not improved with Megace and stabilized. Stopped Megace 02/2019 given its prothrombotic tendencies. Switched to Marinol 2.5 mg p.o. b.i.d. which she took for a week and stopped due to high copay. About 5 weeks ago, she stopped Marinol entirely with no decline in appetite. No further issues. Weight stable. 3. Analgesia, upper abdomen - s/p celiac plexus block 02/09/2019. Pain currently under control on morphine sulfate 7.5 mg q. 4 hours without any constipation and gabapentin 300 mg p.o. t.i.d. Currently on Senokot and Colace twice a day - hold off for diarrhea. 4. Macrocytic anemia - multifactorial secondary to cytotoxic chemotherapy, anemia of chronic disease from underlying malignancy. 03/26/2019, B12 1135, folate 22 - monitor counts. Counts stable Update iron indices today, if hemoglobin continues to be <10, and iron stores are replenished will consider WENDY therapy. 5. Dilated ovarian veins bilaterally, left more than right, possible pelvic congestion syndrome noted on 03/26/2019 CT pelvis. Patient is currently asymptomatic. If she becomes symptomatic, will refer to vascular surgery for further evaluation/management. 6. Right hand tremors- dating back several years w/ increase in the last month and she occasionally drops small items. 05/01/2019- MRI brain - no acute intracranial pathology. Partial opacification of right inferior mastoid cells - no acute sinusitis at the present time. Had previously referred to neurology. Urged to followup on referral for Neurology input. FOLLOW UP: 2 weeks, sooner p.rn All of the above was relayed to the patient who was given an opportunity to ask questions that were answered to satisfaction. The patient voiced an understanding and agreed to proceed. Electronically Signed by Kodi Cheek MD 05/08/2019 10:26 P DD: Kodi Cheek MD 05/07/2019 05:27 P DT: dori 05/08/2019 02:44 P CC:
[2019-05-20 07:51] VITALS: BP 131/66
[2019-05-20 08:13] LABS: BASO % 0.7 % (0.0-1.0); EOS # 0.2 10^3/uL (0.0-0.5); EOS % 4.2 % (0.0-3.0); HEMATOCRIT 29.2 % (36.0-47.0); LYMPH # 0.9 10^3/uL (1.5-5.0); LYMPH % 16.2 % (24.0-44.0); MEAN CORPUSCULAR HEMOGLOBIN 31.5 pg (27.0-33.0); MEAN CORPUSCULAR HGB CONC 30.8 g/dl (32.0-36.5); MEAN CORPUSCULAR VOLUME 102.1 fl (80.0-96.0); MONO # 0.6 10^3/uL (0.0-0.8); MONO % 11.6 % (0.0-5.0); NEUTROPHILS # 3.7 10^3/uL (1.5-8.5); NEUTROPHILS % 66.9 % (36.0-66.0); PLATELET COUNT, AUTOMATED 178 10^3/uL (150-450); RED BLOOD COUNT 2.86 10^6/uL (4.00-5.40); WHITE BLOOD COUNT 5.5 10^3/uL (4.0-10.0)
[2019-05-20 08:37] LABS: ALBUMIN 2.8 GM/DL (3.2-5.2); ALT/SGPT 27 U/L (12-78); BILIRUBIN,TOTAL 0.9 MG/DL (0.2-1.0); BLOOD UREA NITROGEN 11 MG/DL (7-18); CALCIUM LEVEL 8.8 MG/DL (8.8-10.2); CARBON DIOXIDE LEVEL 30 MEQ/L (21-32); CHLORIDE LEVEL 107 MEQ/L (98-107); CREATININE FOR GFR 0.59 MG/DL (0.55-1.30); GLOMERULAR FILTRATION RATE > 60.0 (>39); GLUCOSE, FASTING 153 MG/DL (70-100); POTASSIUM SERUM 3.7 MEQ/L (3.5-5.1); SODIUM LEVEL 141 MEQ/L (136-145)
--- NOTE | 2019-05-20 08:48 | ONC.PHACK ---
CHEMO ADMIN CHECKLIST Order Contains Pt ID: Name, Order on Chemo Order Form?: Yes Order Form Includes ALL: Correct Tx Day, Correct Date, Correct Cycle Number Pt ID on Order form Matches: Pt ID on PHA Label Med on Chemo OrderForm Matches: PHA Label, Med Used for Preparation [facility] May 20, 2019 08:48
--- NOTE | 2019-05-20 22:48 | MEDONC ---
DATE OF SERVICE: 05/20/2019 REASON FOR FOLLOWUP: Pancreatic cancer. 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 Saw medical oncology [facility], who recommended Gemcitabine/Abraxane. - 11/19/2018 - commenced gemcitabine/Abraxane - day 1, 8, 15 q. 28 days. - 02/09/2019 - celiac nerve block. - 03/26/2019, resumed gemcitabine/Abraxane - q. 2 week schedule, since patient, in prior 3 cycles could not tolerate day 15 due to prohibitive thrombocytopenia. INTERVAL HISTORY: The patient is here in followup today. Tolerated cycle 7 of the chemotherapy with the exception of two episodes of diarrhea for 1 day. With the intake of Imodium, this was controlled without any further recurrence. She had for about 2 hours per her a temperature of 96. She then rebounded to 96-97, then normal. She denies any fever or chills. Currently feels well. Had mild nausea days 3 through 5. Took Zofran twice a day without any further episodes, continues to not require the use of any breakthrough Compazine. Abdominal pain. Since her last visit she states is even better controlled. Currently she has none while on gabapentin 300 mg p.o. t.i.d. and morphine sulfate q. 4 hours though she has begun to skip the 2:00 a.m. dose without any issues. Stopped her Marinol 2 weeks ago - appetite remains good. Weight is stable, no further weight loss reported. Previously reported right hand tremor she states are stable though they had increased over the proceeding 1-1/2 months with intermittently dropping of small items. Will be seeing neurology for further input. Reports no new issues. REVIEW OF SYSTEMS: Constitutional: No fevers, no chills, no night sweats, no fatigue, no malaise, no weight loss. Cardiopulmonary: No chest pain, no SOB, no palpitations, no dizziness. No cough. No hemoptysis. Gastrointestinal: Abdominal pain as above. No nausea, no vomiting, no constipation, no diarrhea. No hematemesis, no melena, no hematochezia. Genitourinary: No dysuria, no hematuria, no incontinence, no frequency, no urgency. Musculoskeletal: No bony, no muscle, no joint aches. FAMILY ENGAGEMENT SPECIALIST: As above. No tingling, no weakness, no numbness, no headaches, no dizziness, no seizures, no speech, no visual disturbances. All other systems are negative unless otherwise specified in HPI. PAST MEDICAL HISTORY: Hyperlipidemia, GERD, hypertension, diabetes, right hand tremors. MEDICATIONS: Reviewed in EMR. ALLERGIES/DRUG SENSITIVITIES: AUGMENTIN - yeast infection. VITAL SIGNS: Reviewed in EMR - stable. PHYSICAL EXAM: HEENT: Oral mucosa - pink and moist, no conjunctival pallor, sclerae anicteric bilaterally. LYMPHATICS: Not re-examined today. Per prior exam - No cervical, supraclavicular, axillary, or inguinal LAD. LUNGS: Clear to auscultation bilaterally, resonant to percussion bilaterally. HEART: Regular rhythm, no murmurs, no S3/S4, no rubs. ABDOMEN: Soft, nontender, no hepatosplenomegaly. EXTREMITIES: No edema bilaterally. Calves nontender bilaterally. SKIN/NAILS: No nail changes. No petechiae/ecchymosis or other skin changes. MUSCULOSKELETAL: Spine nontender to palpation. FAMILY ENGAGEMENT SPECIALIST: Per prior exam - Not re-examined today. Right hand intention tremors, none at rest. Gait WNL. Strength 4+/5 - RUE, WNL in other extremities. Cranial nerves II-XII grossly intact. INVESTIGATIONS: Reviewed in EMR. ASSESSMENT AND PLAN: 1. 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 Diagnosis and Treatment history as above. Currently on gemcitabine/Abraxane q. 2 weeks. Tolerated C7 well with filgrastim support, with the exception of grade 1 diarrhea and grade 1 vomiting - resolved with Imodium and Zofran respectively. Patient was initially seen at [facility] and was deemed to be unresectable. Considering that she has completed several cycles of chemotherapy, question is with her upcoming scans following C8, has her disease responded enough to be potentially resectable. CBC today. Stable anemia. No new cytopenias - since switching to gemcitabine/Abraxane every 2 weeks she has not had any of her previous prohibitive thrombocytopenia hat required holding therapy per prior notes. Proceed with C8 today. Following C8, obtain CA-19-9 and reevaluation contrast infused CT CAP and PET scan. Patient previously not met with pancreatico-biliary surgery. Gave her referral for formal evaluation at [facility] where she was seen previously. Called Dr. Madonna Fritz from medical oncology who saw her previously to discuss as well. 2. Analgesia, upper abdomen - s/p celiac plexus block 02/09/2019. Pain currently under control on morphine sulfate 7.5 mg q. 4 hours without any constipation and gabapentin 300 mg p.o. t.i.d. Currently on Senokot and Colace twice a day - hold off for diarrhea. 3. Macrocytic anemia - multifactorial secondary to cytotoxic chemotherapy, anemia of chronic disease from underlying malignancy. 03/26/2019, B12 1135, folate 22 - monitor counts. Counts stable Update iron indices today. 05/06/2019 iron indices - no deficiency - c/w anemia of chronic disease. If hemoglobin continues to be < 10 can consider erythropoietin stimulating agent - Aranesp subcutaneous 500 mcg q. 3 weeks. However, this will require patient to come also during her off week of chemotherapy. Given the current COVID-19 pandemic to limit her exposure, as long her counts remain stable we can defer this for now. Monitor counts. WENDY to be implemented if there is a further decline of her hemoglobin. 4. Dilated ovarian veins bilaterally, left more than right, possible pelvic congestion syndrome noted on 03/26/2019 CT pelvis. Patient is currently asymptomatic. If she becomes symptomatic, will refer to vascular surgery for further evaluation/management. 5. Right hand tremors - dating back several years w/ increase in the last month and she occasionally drops small items. 05/01/2019- MRI brain - no acute intracranial pathology. Partial opacification of right inferior mastoid cells - no acute sinusitis at the present time. Had previously referred to neurology. Awaiting appointment per patient. FOLLOW UP: 2 weeks with updated labs and imaging, sooner p.r.n. All of the above was relayed to the patient who was given an opportunity to ask questions that were answered to satisfaction. The patient voiced an understanding and agreed to proceed. Addendum: 05/21/19- Called Dr. Fritz who kindly consented to receiving CDs to have them reviewed by the surgical team at [facility]. Patient will be contacted for formal face to face opinion vs telephone consult, depending on scan review. Called and updated patient's . Ariana, Straight Cutter Machine advised of plan to help co-ordinate. Electronically Signed by Kodi Cheek MD 05/21/2019 04:18 P DD: Kodi Cheek MD 05/20/2019 05:41 P DT: [email or web address] 05/20/2019 09:33 P CC:
[2019-05-21] MEDS: FILGRASTIM 300 MCG/0.5 ML SYRINGE (J1442 PER 1MCG) SC SCH (10:51)
[2019-05-22] MEDS: FILGRASTIM 300 MCG/0.5 ML SYRINGE (J1442 PER 1MCG) SC SCH (11:09)
[2019-06-03 08:41] VITALS: BP 149/77
[2019-06-03 08:50] LABS: BASO % 0.5 % (0.0-1.0); EOS # 0.3 10^3/uL (0.0-0.5); EOS % 5.6 % (0.0-3.0); HEMATOCRIT 28.8 % (36.0-47.0); HEMOGLOBIN 8.9 g/dl (12.0-15.5); LYMPH # 0.8 10^3/uL (1.5-5.0); LYMPH % 13.9 % (24.0-44.0); MEAN CORPUSCULAR HGB CONC 30.9 g/dl (32.0-36.5); MEAN CORPUSCULAR VOLUME 100.3 fl (80.0-96.0); MONO # 0.5 10^3/uL (0.0-0.8); MONO % 9.2 % (0.0-5.0); NEUTROPHILS % 70.4 % (36.0-66.0); PLATELET COUNT, AUTOMATED 133 10^3/uL (150-450); RED BLOOD COUNT 2.87 10^6/uL (4.00-5.40); WHITE BLOOD COUNT 5.7 10^3/uL (4.0-10.0)
--- NOTE | 2019-06-03 08:57 | MEDONCPDOC ---
Medical Oncology Office Note Date of Service: Jun 03, 2019 Diagnosis/Treatment History Oncology problem list 1. Stage III locally advanced unresectable pancreatic ductal carcinoma with stable disease on gemcitabine/Abraxane since 11/19/2018 2. Cancer related pain status post celiac node block 02/09/2019 3. Chemotherapy induced neutropenia-currently on growth factor support G-CSF 300 g day 2, 3 and day 16, 17 MEDICATIONS: Reviewed in EMR. Interval History Brain MRI performed 05/01/2019 Review the patient No evidence of intrathoracic disease noted CT of the abdomen and pelvis performed May 25 Is reviewed with the patient and copy of report given to patient This revealed evidence of pancreatic edema causing compression of nearby structures as well as periportal edema this represents a change from prior exam of undetermined etiology the retroperitoneal adenopathy in the periaortic area has increased slightly and a small amount of fluid seen in these of the small bowel mesentery. This seems to be severe compression of the portal splenic confluence CT of the chest performed 05/26/2019 Was reviewed with the patient Revealed no evidence of acute intrathoracic disease PET/CT scan performed 05/25/2019 Was reviewed with patient and copy of report given to patient Persistent hyperm uptake was seen in both the body and the tail of the pancreas. There is improved avidity below slightly maximum uptake is 5.01 previously 6.20. The portion of the body and tail of pancreas is slightly thicker than on the CT scan done previously. The body of the pancreas bruising measured 1.9 cm currently 3.0 cm. Tumor measured 2.3 cm currently 2.2 cm. There is hypermetabolic uptake along the posterior wall of the stomach adjacent to the pancreatic tail consistent with normal physiologic uptake. There is some r esidual hypermetabolic periaortic nodular uptake at the level of the pancreas. There is some new ascites in the pelvic reflections noted Prolonged discussion today regarding goals of care NCCN guidelines reviewed and copies of relevant pages given to patient Patient has stable disease to perhaps minimal progression. It is clear the patient remains unresectable. Futility of a second opinion and review by a surgeon discussed with the patient. Patient understands palliative nature of disease Discussed the fact the patient has noncurable disease and she will eventually succumb due to complications of this malignancy. Given that we have completed more than 6 months of palliative chemotherapy without evidence of progression or new areas of disease, I'm recommending we proceed with chemoradiotherapy in a definitive fashion to try to improve symptom-free interval. The fact that chemotherapy will become ineffective discussed with the patient Patient agreeable for radiation oncology consult and for consideration for chemoradiotherapy Allergies Coded Allergies: amoxicillin (Verified Adverse Reaction, Mild, YEAST INFECTION IF HIGH DOSES, 11/05/18) clavulanic acid (Verified Adverse Reaction, Mild, YEAST INFECTION IF HIGH DOSES, 11/05/18) Home Medications Active Scripts Diphenoxylate HCl/Atropine (Lomotil 2.5-0.025 mg Tablet) 1 Each Tablet, 1 TAB PO TID MDD 3 Tablet(s) for 10 Days, #30 TAB Prov:MARCE ERNANDEZ MD 06/01/19 Morphine Sulfate (Morphine Sulfate) 10 Mg/5 Ml Solution, 7.5 MG PO Q4H PRN for PAIN MDD 45 for 14 Days, #315 ML Prov:Letitia Isaacs MD 12/30/18 Lidocaine/Prilocaine (Lidocaine-Prilocaine Cream) 2.5%/2.5% Cream..g., 1 APLCT TOP ASDIRECTED, #30 GRAM Prov:Letitia Isaacs MD 12/16/18 Gabapentin (Gabapentin) 300 Mg Capsule, 300 MG PO TID for pain for 90 Days, #270 CAP 1 Refill Prov:Letitia Isaacs MD 12/02/18 Ondansetron HCl (Ondansetron HCl) 4 Mg Tablet, 1 TAB PO Q6HP PRN for nausea/vomiting for 30 Days, #30 TAB 3 Refills Prov:Letitia Isaacs MD 11/05/18 Reported Medications Omeprazole (Omeprazole) 20 Mg Capsule.dr, 20 MG PO DAILY 03/20/19 Mv-Mn/Folic/[place]/Vit K/B Comp,C (Women's Daily Pack) 1 Each Tablet, 1 EACH PO QPM, TAB TAKES AT DINNERTIME 11/05/18 Aspirin (Aspirin) 81 Mg Tab.chew, 81 MG PO QHS 11/05/18 Ascorbic Acid (Vitamin C) 500 Mg Tablet, 500 MG PO QPM TAKES AT DINNERTIME 11/05/18 [place]-3 Fatty Acids/Fish Oil ([place] 3 Fish Oil Softgel) 1 Each Capsule.dr, 1 CAP PO QPM TAKES AT DINNER TIME 11/05/18 Atorvastatin Calcium (Atorvastatin Calcium) 40 Mg Tablet, 40 MG PO DAILY 11/05/18 Metformin HCl (Metformin HCl ER) 500 Mg Tab.er.24h, 1500 MG PO QPM 11/05/18 Propranolol HCl (Propranolol HCl) 10 Mg Tablet, 10 MG PO BID 11/05/18 Past Medical History Past Medical History: Hyperlipidemia, GERD, hypertension, diabetes, right hand tremors. Review of Systems General: Reports: Normal Appetite; Denies: Chills, Fatigue, Malaise Constitutional: Reports: Fatigue Eyes: Denies: Vision change HEENT: Denies: Head Aches, Dysphagia, Sore Throat, Epistaxis Skin: Denies: Rash, Lesions, Jaundice, Bruising Pulmonary: Denies: Dyspnea, Cough Cardiovascular: Denies: Chest Pain, Palpitations, Orthopnea, Edema Gastrointestinal: Reports: Diarrhea (after chemotherapy), Other Symptoms (mild pain and bloating at times) Genitourinary: Denies: Dysuria, Frequency, Incontinence Hematologic: Denies: Bruising, Petecchia Musculoskeletal: Reports: Muscle pain (at times), Muscle stiffness (at times) Neurological: Reports: Weakness, Numbness; Denies: Change in Speech Psych: Reports: Anxiety Physical Examination General Exam: Positive: Alert, No Acute Distress Eye Exam: Positive: PERRLA, Conjunctiva & lids normal; Negative: Sclera icteric ENT EXAM: Positive: Atraumatic, Mucous membr. moist/pink Neck Exam: Reports: Supple; Denies: JVD, Thyromegaly, Lymphadenopathy Chest Exam: Positive: Other (port is in place for chest) Heart Exam: Positive: Rate Normal Abdomen Exam: Positive: Other (obese) Extremity Exam: Negative: Clubbing, Cyanosis, Edema Skin Exam: Positive: Nl turgor and temperature; Negative: Rash, Breakdown, Lesion Neuro Exam: Positive: Normal Speech, Normal Tone Psych Exam: Positive: Mental status NL Ht / Wt Ht / Wt Height:5 Feet 6 Inches Weight: 60.600 Kg Vital Signs Vital Signs Date Time Temp Pulse Resp B/P (MAP) Pulse Ox O2 Delivery O2 Flow Rate FiO2 06/03/19 08:41 96.9 87 18 149/77 (101) 96 Room Air Laboratory Data Laboratory Tests Laboratory Tests Test 06/03/19 08:39 Blood Urea Nitrogen 9 MG/DL (7-18) Creatinine 0.62 MG/DL (0.55-1.30) Glomerular Filtration Rate > 60.0 (>39) Fasting Glucose 152 MG/DL (70-100) H Calcium Level 8.5 MG/DL (8.8-10.2) L Total Bilirubin 1.1 MG/DL (0.2-1.0) H Aspartate Amino Transf (AST/SGOT) 22 U/L (7-37) Alanine Aminotransferase (ALT/SGPT) 21 U/L (12-78) Total Protein 6.0 GM/DL (6.4-8.2) L Sodium Level 142 MEQ/L (136-145) Albumin 2.8 GM/DL (3.2-5.2) L Alkaline Phosphatase 103 U/L (45-117) Potassium Level 3.7 MEQ/L (3.5-5.1) Chloride Level 108 MEQ/L (98-107) H Carbon Dioxide Level 30 MEQ/L (21-32) Anion Gap 4 MEQ/L (8-16) L Laboratory Tests 06/03/19 08:39 06/03/19 08:40 Laboratory Tests 06/03/19 08:39 Assessment/Plan Impression 1. Unresectable stage III pancreatic adenocarcinoma with stable disease (to possible slight progression) currently on palliative gemcitabine and Abraxane every 2 weeks with growth factor support Plan/recommendations Patient is clearly unresectable based on imaging which reviewed in detail with patient. Recommend we abandon option for noncurable surgery. Recommend continuing palliative chemotherapy Recommend definitive chemoradiotherapy with referral made to radiation oncology I spent 35 minutes during this visit seeing the patient [id number] and reviewing records. More than 50% of the time was spent in direct [id number] discussion and counseling of the patient. CC TO: Primary Care Provider: Maci Roberts Np XRT Oncologist: Rohan Fritz Problems: (1) Pancreatic cancer MARCE ERNANDEZ MD Jun 03, 2019 08:57
[2019-06-03 09:18] LABS: ALBUMIN 2.8 GM/DL (3.2-5.2); ALT/SGPT 21 U/L (12-78); BILIRUBIN,TOTAL 1.1 MG/DL (0.2-1.0); BLOOD UREA NITROGEN 9 MG/DL (7-18); CALCIUM LEVEL 8.5 MG/DL (8.8-10.2); CARBON DIOXIDE LEVEL 30 MEQ/L (21-32); CHLORIDE LEVEL 108 MEQ/L (98-107); CREATININE FOR GFR 0.62 MG/DL (0.55-1.30); GLOMERULAR FILTRATION RATE > 60.0 (>39); GLUCOSE, FASTING 152 MG/DL (70-100); POTASSIUM SERUM 3.7 MEQ/L (3.5-5.1); SODIUM LEVEL 142 MEQ/L (136-145)
--- NOTE | 2019-06-03 12:29 | ONC.PHACK ---
CHEMO ADMIN CHECKLIST Order Contains Pt ID: Name, Order on Chemo Order Form?: Yes Order Form Includes ALL: Correct Tx Day, Correct Date, Correct Cycle Number Pt ID on Order form Matches: Pt ID on PHA Label Med on Chemo OrderForm Matches: PHA Label, Med Used for Preparation [facility] Jun 03, 2019 12:29
[2019-06-17 08:01] VITALS: BP 133/75
[2019-06-17 08:15] LABS: BASO % 0.6 % (0.0-1.0); EOS # 0.3 10^3/uL (0.0-0.5); EOS % 4.9 % (0.0-3.0); HEMATOCRIT 27.4 % (36.0-47.0); HEMOGLOBIN 8.5 g/dl (12.0-15.5); LYMPH # 0.9 10^3/uL (1.5-5.0); LYMPH % 17.7 % (24.0-44.0); MONO # 0.7 10^3/uL (0.0-0.8); NEUTROPHILS # 3.2 10^3/uL (1.5-8.5); NEUTROPHILS % 63.6 % (36.0-66.0); PLATELET COUNT, AUTOMATED 164 10^3/uL (150-450); RED BLOOD COUNT 2.74 10^6/uL (4.00-5.40); WHITE BLOOD COUNT 5.1 10^3/uL (4.0-10.0)
[2019-06-17 08:45] LABS: ALBUMIN 2.6 GM/DL (3.2-5.2); ALT/SGPT 25 U/L (12-78); BILIRUBIN,TOTAL 0.8 MG/DL (0.2-1.0); BLOOD UREA NITROGEN 11 MG/DL (7-18); CALCIUM LEVEL 8.5 MG/DL (8.8-10.2); CARBON DIOXIDE LEVEL 28 MEQ/L (21-32); CHLORIDE LEVEL 107 MEQ/L (98-107); CREATININE FOR GFR 0.62 MG/DL (0.55-1.30); GLOMERULAR FILTRATION RATE > 60.0 (>39); GLUCOSE, FASTING 158 MG/DL (70-100); POTASSIUM SERUM 3.7 MEQ/L (3.5-5.1); SODIUM LEVEL 142 MEQ/L (136-145); TOTAL PROTEIN 5.9 GM/DL (6.4-8.2)
--- NOTE | 2019-06-17 09:22 | MEDONCPDOC ---
Medical Oncology Office Note Date of Service: Jun 17, 2019 Diagnosis/Treatment History Oncology problem list 1. 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 Cancer related pain status post celiac node block 02/09/2019 3. Chemotherapy induced neutropenia-currently on growth factor support G-CSF 300 g day 2, 3 and day 16, [address] of the abdomen and pelvis performed May 25 Is reviewed with the patient and copy of report given to patient This revealed evidence of pancreatic edema causing compression of nearby structures as well as periportal edema this represents a change from prior exam of undetermined etiology the retroperitoneal adenopathy in the periaortic area has increased slightly and a small amount of fluid seen in these of the small bowel mesentery. This seems to be severe compression of the portal splenic confluence CT of the chest performed 05/26/2019 Was reviewed with the patient Revealed no evidence of acute intrathoracic disease PET/CT scan performed 05/25/2019 Was reviewed with patient and copy of report given to patient Persistent hyperm uptake was seen in both the body and the tail of the pancreas. There is improved avidity below slightly maximum uptake is 5.01 previously 6.20. The portion of the body and tail of pancreas is slightly thicker than on the CT scan done previously. The body of the pancreas bruising measured 1.9 cm currently 3.0 cm. Tumor measured 2.3 cm currently 2.2 cm. There is hypermetabolic uptake along the posterior wall of the stomach adjacent to the pancreatic tail consistent with normal physiologic uptake. There is some residual hypermetabolic periaortic nodular uptake at the level of the pancreas. There is some new ascites in the pelvic reflections noted Interval History Prolonged discussion today regarding goals of care Appreciate radiation oncology consults which was performed June 15 Patient unhappy with consideration of radiation Patient worried about potential side effects Goals of care discussed again Palliative nature of all disease treatment discussed Patient has been intentionally fortunate that we've had essentially stable disease since August 2018 There is some evidence of progression albeit, mild on PET/CT scan CA-19-9 levels arising fairly dramatically NCCN guidelines again reviewed in detail Again patient has stable disease to perhaps minimal progression. It is clear the patient remains unresectable. Patient understands palliative nature of disease Given that we have completed more than 6 months of palliative chemotherapy without evidence of progression or new areas of disease, I'm again recommending we proceed with chemoradiotherapy in a definitive fashion to try to improve symptom-free interval. The fact that chemotherapy will become ineffective discussed with the patient Given disease biology and chance for response and control, I feel her option would be chemoradiotherapy at this juncture If patient decides against chemoradiotherapy there are several other second line options that include: 1. No treatment, just hospice care 2. Clinical trial enrollment 3. Palliative FOLFOX chemotherapy or liposomal irinotecan with 5-fluorouracil Patient agreeable for radiation oncology consult and for consideration for chemoradiotherapy Allergies Coded Allergies: No Known Allergies (Unverified , 06/05/19) Home Medications Active Scripts Diphenoxylate HCl/Atropine (Lomotil 2.5-0.025 mg Tablet) 1 Each Tablet, 1 TAB PO TID MDD 3 Tablet(s) for 10 Days, #30 TAB Prov:MARCE ERNANDEZ MD 06/01/19 Morphine Sulfate (Morphine Sulfate) 10 Mg/5 Ml Solution, 7.5 MG PO Q4H PRN for PAIN MDD 45 for 14 Days, #315 ML Prov:Letitia Isaacs MD 12/30/18 Lidocaine/Prilocaine (Lidocaine-Prilocaine Cream) 2.5%/2.5% Cream..g., 1 APLCT TOP ASDIRECTED, #30 GRAM Prov:Letitia Isaacs MD 12/16/18 Gabapentin (Gabapentin) 300 Mg Capsule, 300 MG PO TID for pain for 90 Days, #270 CAP 1 Refill Prov:Letitia Isaacs MD 12/02/18 Ondansetron HCl (Ondansetron HCl) 4 Mg Tablet, 1 TAB PO Q6HP PRN for nausea/vomiting for 30 Days, #30 TAB 3 Refills Prov:Letitia Isaacs MD 11/05/18 Reported Medications Propranolol HCl (Propranolol HCl) 20 Mg Tablet, 1 TAB PO ASDIRECTED 06/17/19 Omeprazole (Omeprazole) 20 Mg Capsule.dr, 20 MG PO DAILY 03/20/19 Mv-Mn/Folic/[place]/Vit K/B Comp,C (Women's Daily Pack) 1 Each Tablet, 1 EACH PO QPM, TAB TAKES AT DINNERTIME 11/05/18 Aspirin (Aspirin) 81 Mg Tab.chew, 81 MG PO QHS 11/05/18 Ascorbic Acid (Vitamin C) 500 Mg Tablet, 500 MG PO QPM TAKES AT DINNERTIME 11/05/18 [place] Fatty Acids/Fish Oil ([place] 3 Fish Oil Softgel) 1 Each Capsule.dr, 1 CAP PO QPM TAKES AT DINNER TIME 11/05/18 Atorvastatin Calcium (Atorvastatin Calcium) 40 Mg Tablet, 40 MG PO DAILY 11/05/18 Metformin HCl (Metformin HCl ER) 500 Mg Tab.er.24h, 1500 MG PO QPM 11/05/18 Discontinued Reported Medications Propranolol HCl (Propranolol HCl) 10 Mg Tablet, 20 MG PO BID 11/05/18 Discontinued Scripts Cephalexin (Keflex) 500 Mg Capsule, 500 MG PO TID, #21 CAP Prov:Antwan Harrison M.D. 06/07/19 Past Medical History Past Medical History: Hyperlipidemia, GERD, hypertension, diabetes, right hand tremors. Review of Systems General: Reports: Normal Appetite; Denies: Chills, Fatigue, Malaise Constitutional: Reports: Fatigue Eyes: Denies: Vision change HEENT: Denies: Head Aches, Dysphagia, Sore Throat, Epistaxis Skin: Denies: Rash, Lesions, Jaundice, Bruising Pulmonary: Denies: Dyspnea, Cough Cardiovascular: Denies: Chest Pain, Palpitations, Orthopnea, Edema Gastrointestinal: Denies: Nausea, Vomiting, Diarrhea Genitourinary: Denies: Dysuria, Frequency, Incontinence Hematologic: Denies: Bruising, [place] Neurological: Reports: Weakness, Numbness; Denies: Change in Speech Psych: Reports: Anxiety Physical Examination General Exam: Positive: Cooperative Eye Exam: Positive: PERRLA, Conjunctiva & lids normal; Negative: Sclera icteric ENT EXAM: Positive: Atraumatic, Mucous membr. moist/pink Neck Exam: Reports: Supple; Denies: JVD, Thyromegaly, Lymphadenopathy Chest Exam: Positive: Clear to auscultation, Normal air movement Heart Exam: Positive: Rate Normal Abdomen Exam: Positive: Other (minimal distention without palpable masses) Extremity Exam: Negative: Clubbing, Cyanosis, Edema Skin Exam: Positive: Nl turgor and temperature; Negative: Rash, Breakdown, Lesion Neuro Exam: Positive: Normal Speech, Normal Tone Psych Exam: Positive: Anxiety Ht / Wt Ht / Wt Height:5 Feet 6 Inches Weight: 59.600 Kg Vital Signs Vital Signs Date Time Temp Pulse Resp B/P (MAP) Pulse Ox O2 Delivery O2 Flow Rate FiO2 06/17/19 08:01 97.1 71 18 133/75 (94) 96 Room Air Laboratory Data Laboratory Tests Test 06/17/19 08:00 Laboratory Tests 06/17/19 08:00 Assessment/Plan Assessment 1. Unresectable stage III pancreatic adenocarcinoma in the body of pancreas with stable disease (to possible slight progression) and rapidly rising CA-19-9 currently on palliative gemcitabine and Abraxane every 2 weeks with growth factor support. Current treatment clearly not going to keep her disease under control for much longer. Recommendations Again, recommend definitive chemoradiotherapy as next step. Radiation oncologist agrees this is appropriate patient for this treatment modality If patient decides against chemoradiotherapy, we can proceed with palliative care alone or second line chemotherapy as listed above Referral for second opinion offered today Referral for clinical trial enrollment offered today I spent 35 minutes during this visit seeing the patient [id number] and reviewing records. Video conference of entire office visit with at patient's request occurred today. More than 50% of the time was spent in direct [id number] discussion and counseling of the patient. CC TO: Primary Care Provider: Maci Roberts NpT Oncologist: Rohan Fritz Problems: (1) Carcinoma of body of pancreas (2) Drug induced neutropenia MARCE ERNANDEZ MD Jun 17, 2019 09:22
--- NOTE | 2019-06-17 10:00 | ONC.PHACK ---
CHEMO ADMIN CHECKLIST Order Contains Pt ID: Name, Order on Chemo Order Form?: Yes Order Form Includes ALL: Correct Tx Day, Correct Date, Correct Cycle Number Pt ID on Order form Matches: Pt ID on PHA Label Med on Chemo OrderForm Matches: PHA Label, Med Used for Preparation [facility] Jun 17, 2019 10:00
[2019-07-01 08:14] VITALS: BP 120/62
[2019-07-01 08:14] LABS: BASO % 0.3 % (0.0-1.0); EOS # 0.3 10^3/uL (0.0-0.5); EOS % 4.5 % (0.0-3.0); HEMATOCRIT 27.9 % (36.0-47.0); HEMOGLOBIN 8.6 g/dl (12.0-15.5); LYMPH # 0.9 10^3/uL (1.5-5.0); LYMPH % 14.4 % (24.0-44.0); MEAN CORPUSCULAR HEMOGLOBIN 30.7 pg (27.0-33.0); MEAN CORPUSCULAR HGB CONC 30.8 g/dl (32.0-36.5); MEAN CORPUSCULAR VOLUME 99.6 fl (80.0-96.0); MONO # 0.7 10^3/uL (0.0-0.8); NEUTROPHILS # 4.4 10^3/uL (1.5-8.5); NEUTROPHILS % 69.5 % (36.0-66.0); PLATELET COUNT, AUTOMATED 181 10^3/uL (150-450); WHITE BLOOD COUNT 6.4 10^3/uL (4.0-10.0)
--- NOTE | 2019-07-01 08:18 | MEDONCPDOC ---
Medical Oncology Office Note Date of Service: July 01, 2019 Diagnosis/Treatment History Oncology problem list 1. 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 Cancer related pain status post celiac node block 02/09/2019 3. Chemotherapy induced neutropenia-currently on growth factor support G-CSF 300 g day 2, 3 and day 16, [address] of the abdomen and pelvis performed May 25 Is reviewed with the patient and copy of report given to patient This revealed evidence of pancreatic edema causing compression of nearby structures as well as periportal edema this represents a change from prior exam of undetermined etiology the retroperitoneal adenopathy in the periaortic area has increased slightly and a small amount of fluid seen in these of the small bowel mesentery. This seems to be severe compression of the portal splenic confluence CT of the chest performed 05/26/2019 Was reviewed with the patient Revealed no evidence of acute intrathoracic disease PET/CT scan performed 05/25/2019 Was reviewed with patient and copy of report given to patient Persistent hypermetabolic uptake was seen in both the body and the tail of the pancreas. There is improved avidity below slightly maximum uptake is 5.01 previously 6.20. The portion of the body and tail of pancreas is slightly thicker than on the CT scan done previously. The body of the pancreas bruising measured 1.9 cm currently 3.0 cm. Tumor measured 2.3 cm currently 2.2 cm. There is hypermetabolic uptake along the posterior wall of the stomach adjacent to the pancreatic tail consistent with normal physiologic uptake. There is some res idual hypermetabolic periaortic nodular uptake at the level of the pancreas. There is some new ascites in the pelvic reflections noted Interval History Patient remains extremely anxious Patient again reports ongoing diarrhea which is been problematic for her Patient is been taking Imodium, Lomotil and has intermittent severe diarrhea liquid grade 2 Recommend we try something daily Recommend trying Questran daily. Prescribed 4 mg packets to take one a day Patient to begin palliative chemoradiotherapy. Patient has consented for infusional 5-FU to begin next week in conjunction with radiation therapy. Treatment will begin next Saturday Full informed consent to proceed given and consent form signed We'll proceed with 5-fluorouracil 225 mg/m per day continuous infusion daily Saturday through Saturday with radiation Allergies Coded Allergies: No Known Allergies (Unverified , 06/05/19) Home Medications Active Scripts Cholestyramine (with Sugar) (Questran Packet) 4 Gm Powd.pack, 1 PKT PO DAILY for 30 Days, #30 PKT 2 Refills Prov:MARCE ERNANDEZ MD 07/01/19 Diphenoxylate HCl/Atropine (Lomotil 2.5-0.025 mg Tablet) 1 Each Tablet, 1 TAB PO TID MDD 3 Tablet(s) for 10 Days, #30 TAB Prov:MAREC ERNANDEZ MD 06/01/19 Morphine Sulfate (Morphine Sulfate) 10 Mg/5 Ml Solution, 7.5 MG PO Q4H PRN for PAIN MDD 45 for 14 Days, #315 ML Prov:Letitia Isaacs MD 12/30/18 Lidocaine/Prilocaine (Lidocaine-Prilocaine Cream) 2.5%/2.5% Cream..g., 1 APLCT TOP ASDIRECTED, #30 GRAM Prov:Letitia Isaacs MD 12/16/18 Gabapentin (Gabapentin) 300 Mg Capsule, 300 MG PO TID for pain for 90 Days, #270 CAP 1 Refill Prov:Letitia Isaacs MD 12/02/18 Ondansetron HCl (Ondansetron HCl) 4 Mg Tablet, 1 TAB PO Q6HP PRN for na usea/vomiting for 30 Days, #30 TAB 3 Refills Prov:Letitia Isaacs MD 11/05/18 Reported Medications Propranolol HCl (Propranolol HCl) 20 Mg Tablet, 1 TAB PO ASDIRECTED 06/17/19 Omeprazole (Omeprazole) 20 Mg Capsule.dr, 20 MG PO DAILY 03/20/19 Mv-Mn/Folic/[place]/Vit K/B Comp,C (Women's Daily Pack) 1 Each Tablet, 1 EACH PO QPM, TAB TAKES AT DINNERTIME 11/05/18 Aspirin (Aspirin) 81 Mg Tab.chew, 81 MG PO QHS 11/05/18 Ascorbic Acid (Vitamin C) 500 Mg Tablet, 500 MG PO QPM TAKES AT DINNERTIME 11/05/18 [place]-3 Fatty Acids/Fish Oil ([place] 3 Fish Oil Softgel) 1 Each Capsule.dr, 1 CAP PO QPM TAKES AT DINNER TIME 11/05/18 Atorvastatin Calcium (Atorvastatin Calcium) 40 Mg Tablet, 40 MG PO DAILY 11/05/18 Metformin HCl (Metformin HCl ER) 500 Mg Tab.er.24h, 1500 MG PO QPM 11/05/18 Discontinued Scripts Ciprofloxacin HCl (Cipro) 500 Mg Tablet, 500 MG PO BID, #14 TAB Prov:NISHI JOHNSON VIVIAN 06/19/19 Past Medical History Past Medical History: Hyperlipidemia, GERD, hypertension, diabetes, right hand tremors. Review of Systems Constitutional: Reports: Fatigue Physical Examination General Exam: Positive: Alert, No Acute Distress Eye Exam: Positive: PERRLA, Conjunctiva & lids normal; Negative: Sclera icteric ENT EXAM: Positive: Atraumatic, Mucous membr. moist/pink Neck Exam: Reports: Supple; Denies: JVD, Thyromegaly, Lymphadenopathy Chest Exam: Positive: Clear to auscultation, Normal air movement Heart Exam: Positive: Rate Normal Abdomen Exam: Positive: Normal bowel sounds, Other (minimal distention with fullness in the upper quadrant); Negative: Tenderness, Hepatospenomegaly, Mass Extremity Exam: Negative: Clubbing, Cyanosis, Edema Skin Exam: Positive: Nl turgor and temperature; Negative: Rash, Breakdown, Lesion Neuro Exam: Positive: Normal Speech, Normal Tone Psych Exam: Positive: Anxiety Ht / Wt Ht / Wt Height:5 Feet 6 Inches Weight: 57.900 Kg Laboratory Data Laboratory Tests Test 07/01/19 08:02 Laboratory Tests 07/01/19 08:02 Assessment/Plan Assessment 1. Unresectable stage III pancreatic adenocarcinoma in the body of pancreas with stable disease (to possible slight progression) and rapidly rising CA-19-9 currently on palliative gemcitabine and Abraxane every 2 weeks with growth factor support. Current treatment clearly not going to keep her disease under c ontrol for much longer. 2. Intermittent diarrhea causing stress and weight loss Recommendations Proceed with definitive (palliative) chemoradiotherapy Consented for infusional 5-FU to begin next week pending insurance approval. Prescription for Questran to help with diarrhea I spent 35 minutes during this visit seeing the patient [id number] and reviewing records. Video conference of entire office visit with at patient's request occurred today. More than 50% of the time was spent in direct [id number] discussion and counseling of the patient. CC TO: Primary Care Provider: Maci Roberts Np XRT Oncologist: Rohan Fritz Problems: (1) Carcinoma of body of pancreas MARCE ERNANDEZ MD July 01, 2019 08:18
[2019-07-01 08:44] LABS: BLOOD UREA NITROGEN 10 MG/DL (7-18); CREATININE FOR GFR 0.62 MG/DL (0.55-1.30); GLUCOSE, FASTING 146 MG/DL (70-100)
[2019-07-01 08:45] LABS: ALBUMIN 2.8 GM/DL (3.2-5.2); ALT/SGPT 23 U/L (12-78); BILIRUBIN,TOTAL 0.8 MG/DL (0.2-1.0); CALCIUM LEVEL 8.6 MG/DL (8.8-10.2); CARBON DIOXIDE LEVEL 32 MEQ/L (21-32); CHLORIDE LEVEL 106 MEQ/L (98-107); GLOMERULAR FILTRATION RATE > 60.0 (>39); POTASSIUM SERUM 3.8 MEQ/L (3.5-5.1); SODIUM LEVEL 141 MEQ/L (136-145)
[2019-07-06 12:00] VITALS: BP 154/71
[2019-07-06 13:09] LABS: BASO % 0.8 % (0.0-1.0); EOS # 0.2 10^3/uL (0.0-0.5); EOS % 3.3 % (0.0-3.0); HEMATOCRIT 28.3 % (36.0-47.0); HEMOGLOBIN 8.7 g/dl (12.0-15.5); LYMPH # 0.8 10^3/uL (1.5-5.0); LYMPH % 15.7 % (24.0-44.0); MEAN CORPUSCULAR HEMOGLOBIN 30.5 pg (27.0-33.0); MEAN CORPUSCULAR HGB CONC 30.7 g/dl (32.0-36.5); MEAN CORPUSCULAR VOLUME 99.3 fl (80.0-96.0); MONO # 0.6 10^3/uL (0.0-0.8); NEUTROPHILS # 3.3 10^3/uL (1.5-8.5); NEUTROPHILS % 67.8 % (36.0-66.0); PLATELET COUNT, AUTOMATED 183 10^3/uL (150-450); RED BLOOD COUNT 2.85 10^6/uL (4.00-5.40); WHITE BLOOD COUNT 4.9 10^3/uL (4.0-10.0)
[2019-07-06 13:35] LABS: BLOOD UREA NITROGEN 9 MG/DL (7-18); CALCIUM LEVEL 8.8 MG/DL (8.8-10.2); CARBON DIOXIDE LEVEL 29 MEQ/L (21-32); CHLORIDE LEVEL 106 MEQ/L (98-107); GLOMERULAR FILTRATION RATE > 60.0 (>39); GLUCOSE, FASTING 132 MG/DL (70-100); POTASSIUM SERUM 3.6 MEQ/L (3.5-5.1); SODIUM LEVEL 141 MEQ/L (136-145)
--- NOTE | 2019-07-06 14:04 | ONC.PHACK ---
CHEMO ADMIN CHECKLIST Order Contains Pt ID: Name, Order on Chemo Order Form?: Yes Order Form Includes ALL: Correct Tx Day, Correct Date, Correct Cycle Number Pt ID on Order form Matches: Pt ID on PHA Label Med on Chemo OrderForm Matches: PHA Label, Med Used for Preparation [facility] July 06, 2019 14:04
[2019-07-10 15:12] VITALS: BP 129/68
--- NOTE | 2019-07-10 15:48 | MEDONCPDOC ---
Medical Oncology Office Note Date of Service: July 10, 2019 Diagnosis/Treatment History Oncology problem list 1. 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 2. Cancer related pain status post celiac node block 02/09/2019 3. Failure to thrive with decreased appetite and increased fatigue Diagnostics CT of the abdomen and pelvis performed May 25 Is reviewed with the patient and copy of report given to patient This revealed evidence of pancreatic edema causing compression of nearby structures as well as periportal edema this represents a change from prior exam of undetermined etiology the retroperitoneal adenopathy in the periaortic area has increased slightly and a small amount of fluid seen in these of the small bowel mesentery. This seems to be severe compression of the portal splenic confluence CT of the chest performed 05/26/2019 Was reviewed with the patient Revealed no evidence of acute intrathoracic disease PET/CT scan performed 05/25/2019 Persistent hypermetabolic uptake was seen in both the body and the tail of the pancreas. There is improved avidity below slightly maximum uptake is 5.01 previously 6.20. The portion of the body and tail of pancreas is slightly thicker than on the CT scan done previously. The body of the pancreas bruising measured 1.9 cm currently 3.0 cm. Tumor measured 2.3 cm currently 2.2 cm. There is hypermetabolic uptake along the posterior wall of the stomach adjacent to the pancreatic tail consistent with normal physiologic uptake. There is some residual hypermetabolic periaortic nodular uptake at the level of the pancreas. There is some new ascites in the pelvic reflections noted Interval History Day 5 chemoradiotherapy with 5-FU and palliative radiation to pancreatic bed Rapid rise of CA 19 I noted [place] [id number] and was over 11,300 the month prior Marked Decreased appetite noted Not responding to appetite stimulant We could consider Megace if symptoms continue to worsen Repeat CBC and CMP today Increased fatigue noted May require blood transfusion support next week Allergies Coded Allergies: No Known Allergies (Unverified , 06/05/19) Home Medications Active Scripts Cholestyramine (with Sugar) (Questran Packet) 4 Gm Powd.pack, 1 PKT PO DAILY for 30 Days, #30 PKT 2 Refills Prov:MARCE ERNANDEZ MD 07/01/19 Diphenoxylate HCl/Atropine (Lomotil 2.5-0.025 mg Tablet) 1 Each Tablet, 1 TAB PO TID MDD 3 Tablet(s) for 10 Days, #30 TAB Prov:MARCE ERNANDEZ MD 06/01/19 Morphine Sulfate (Morphine Sulfate) 10 Mg/5 Ml Solution, 7.5 MG PO Q4H PRN for PAIN MDD 45 for 14 Days, #315 ML Prov:Letitia Isaacs MD 12/30/18 Lidocaine/Prilocaine (Lidocaine-Prilocaine Cream) 2.5%/2.5% Cream..g., 1 APLCT TOP ASDIRECTED, #30 GRAM Prov:Letitia Isaacs MD 12/16/18 Gabapentin (Gabapentin) 300 Mg Capsule, 300 MG PO TID for pain for 90 Days, #270 CAP 1 Refill Prov:Letitia Isaacs MD 12/02/18 Ondansetron HCl (Ondansetron HCl) 4 Mg Tablet, 1 TAB PO Q6HP PRN for nausea/vomiting for 30 Days, #30 TAB 3 Refills Prov:Letitia Isaacs MD 11/05/18 Reported Medications Propranolol HCl (Propranolol HCl) 20 Mg Tablet, 1 TAB PO ASDIRECTED 06/17/19 Omeprazole (Omeprazole) 20 Mg Capsule.dr, 20 MG PO DAILY 03/20/19 Mv-Mn/Folic/[place]olina/Vit K/B Comp,C (Women's Daily Pack) 1 Each Tablet, 1 EACH PO QPM, TAB TAKES AT DINNERTIME 11/05/18 Aspirin (Aspirin) 81 Mg Tab.chew, 81 MG PO QHS 11/05/18 Ascorbic Acid (Vitamin C) 500 Mg Tablet, 500 MG PO QPM TAKES AT DINNERTIME 11/05/18 [place]-3 Fatty Acids/Fish Oil ([place] 3 Fish Oil Softgel) 1 Each Capsule.dr, 1 CAP PO QPM TAKES AT DINNER TIME 11/05/18 Atorvastatin Calcium (Atorvastatin Calcium) 40 Mg Tablet, 40 MG PO DAILY 11/05/18 Metformin HCl (Metformin HCl ER) 500 Mg Tab.er.24h, 1500 MG PO QPM 11/05/18 Past Medical History Past Medical History: Hyperlipidemia, GERD, hypertension, diabetes, right hand tremors. Review of Systems General: Reports: Normal Appetite; Denies: Chills, Fatigue, Malaise Constitutional: Reports: Fatigue Eyes: Denies: Vision change HEENT: Denies: Head Aches, Dysphagia, Sore Throat, Epistaxis Skin: Denies: Rash, Lesions, Jaundice, Bruising Pulmonary: Denies: Dyspnea, Cough Cardiovascular: Denies: Chest Pain, Palpitations, Orthopnea, Edema Gastrointestinal: Reports: Abdominal Pain, Other Symptoms (decreased appetite) Genitourinary: Denies: Dysuria, Frequency, Incontinence Hematologic: Denies: Bruising, Petecchia Neurological: Reports: Weakness Psych: Reports: Mood Normal Physical Examination General Exam: Positive: Cooperative Eye Exam: Positive: PERRLA, Conjunctiva & lids normal; Negative: Sclera icteric ENT EXAM: Positive: Other ENT (mucosa dry) Neck Exam: Reports: Supple; Denies: JVD, Thyromegaly, Lymphadenopathy Chest Exam: Positive: Clear to auscultation, Normal air movement Heart Exam: Positive: Rate Normal Abdomen Exam: Positive: Other (minimal pain on palpation upper quadrant. No palpable masses) Extremity Exam: Negative: Clubbing, Cyanosis, Edema Skin Exam: Positive: Nl turgor and temperature; Negative: Rash, Breakdown, Lesion Neuro Exam: Positive: Normal Speech, Normal Tone Psych Exam: Positive: Anxiety Ht / Wt Ht / Wt Height:5 Feet 6 Inches Weight: 56.100 Kg Vital Signs Vital Signs Date Time Temp Pulse Resp B/P (MAP) Pulse Ox O2 Delivery O2 Flow Rate FiO2 07/10/19 15:12 97.2 73 18 129/68 (88) 100 Room Air Laboratory Data Laboratory Tests Test 07/06/19 12:20 Blood Urea Nitrogen 9 MG/DL (7-18) Creatinine 0.40 MG/DL (0.55-1.30) L Glomerular Filtration Rate > 60.0 (>39) Fasting Glucose 132 MG/DL (70-100) H Calcium Level 8.8 MG/DL (8.8-10.2) Sodium Level 141 MEQ/L (136-145) Potassium Level 3.6 MEQ/L (3.5-5.1) Chloride Level 106 MEQ/L (98-107) Carbon Dioxide Level 29 MEQ/L (21-32) Anion Gap 6 MEQ/L (8-16) L Assessment/Plan Assessment 1. Unresectable stage III pancreatic adenocarcinoma in the body of pancreas with stable disease (to possible slight progression) and rapidly rising CA-19-9 currently on palliative gemcitabine and Abraxane every 2 weeks with growth factor support. Current treatment clearly not going to keep her disease under control for much longer. 2. Intermittent diarrhea responded to Questran Recommendations Continue definitive (palliative) chemoradiotherapy with rapid rises CA-19-9 noted Marked improvement and diarrhea with use of Questran Recommend Gatorade/Powerade, ice cream cookies and other high-calorie foods to patient CBC and CMP today We'll see the patient back next week 5-FU week to look up on Saturday Likely donate blood transfusion support next week I spent 25 minutes during this visit seeing the patient [id number] and reviewing records. Video conference of entire office visit with at patient's request occurred today. More than 50% of the time was spent in direct [id number] discussion and counseling of the patient. CC TO: Primary Care Provider: Maci Roberts Np XRT Oncologist: Rohan Fritz Problems: (1) Carcinoma of body of pancreas MARCE ERNANDEZ MD July 10, 2019 15:48
[2019-07-13 13:41] VITALS: BP 129/65
[2019-07-13 14:15] LABS: BASO % 0.5 % (0.0-1.0); EOS # 0.3 10^3/uL (0.0-0.5); EOS % 4.3 % (0.0-3.0); HEMATOCRIT 25.5 % (36.0-47.0); HEMOGLOBIN 7.8 g/dl (12.0-15.5); LYMPH # 0.6 10^3/uL (1.5-5.0); LYMPH % 9.7 % (24.0-44.0); MEAN CORPUSCULAR HEMOGLOBIN 30.6 pg (27.0-33.0); MEAN CORPUSCULAR HGB CONC 30.6 g/dl (32.0-36.5); MONO # 0.8 10^3/uL (0.0-0.8); MONO % 12.8 % (0.0-5.0); NEUTROPHILS # 4.3 10^3/uL (1.5-8.5); NEUTROPHILS % 72.2 % (36.0-66.0); PLATELET COUNT, AUTOMATED 142 10^3/uL (150-450); RED BLOOD COUNT 2.55 10^6/uL (4.00-5.40)
[2019-07-13 14:38] LABS: ALBUMIN 2.7 GM/DL (3.2-5.2); ALT/SGPT 15 U/L (12-78); BILIRUBIN,TOTAL 0.7 MG/DL (0.2-1.0); BLOOD UREA NITROGEN 9 MG/DL (7-18); CALCIUM LEVEL 8.7 MG/DL (8.8-10.2); CARBON DIOXIDE LEVEL 28 MEQ/L (21-32); CHLORIDE LEVEL 106 MEQ/L (98-107); CREATININE FOR GFR 0.53 MG/DL (0.55-1.30); GLOMERULAR FILTRATION RATE > 60.0 (>39); GLUCOSE, FASTING 142 MG/DL (70-100); SODIUM LEVEL 140 MEQ/L (136-145)
--- NOTE | 2019-07-13 15:13 | ONC.PHACK ---
CHEMO ADMIN CHECKLIST Order Contains Pt ID: Name, Order on Chemo Order Form?: Yes Order Form Includes ALL: Correct Tx Day, Correct Date, Correct Cycle Number Pt ID on Order form Matches: Pt ID on PHA Label Med on Chemo OrderForm Matches: PHA Label, Med Used for Preparation [facility] July 13, 2019 15:13
[2019-07-14 11:59] VITALS: BP 108/59
[2019-07-14 12:22] VITALS: BP 99/49
[2019-07-14 13:25] VITALS: BP 112/63
[2019-07-14 14:23] VITALS: BP 124/65
[2019-07-17 14:00] VITALS: BP 134/73
--- NOTE | 2019-07-17 14:24 | MEDONCPDOC ---
Medical Oncology Office Note Date of Service: July 17, 2019 Diagnosis/Treatment History Oncology problem list 1. 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 2. Cancer related pain status post celiac node block 02/09/2019 3. Failure to thrive with decreased appetite and increased fatigue Diagnostics CT of the abdomen and pelvis performed May 25 Is reviewed with the patient and copy of report given to patient This revealed evidence of pancreatic edema causing compression of nearby structures as well as periportal edema this represents a change from prior exam of undetermined etiology the retroperitoneal adenopathy in the periaortic area has increased slightly and a small amount of fluid seen in these of the small bowel mesentery. This seems to be severe compression of the portal splenic confluence CT of the chest performed 05/26/2019 Was reviewed with the patient Revealed no evidence of acute intrathoracic disease PET/CT scan performed 05/25/2019 Persistent hypermetabolic uptake was seen in both the body and the tail of the pancreas. There is improved avidity below slightly maximum uptake is 5.01 previously 6.20. The portion of the body and tail of pancreas is slightly thicker than on the CT scan done previously. The body of the pancreas bruising measured 1.9 cm currently 3.0 cm. Tumor measured 2.3 cm currently 2.2 cm. There is hypermetabolic uptake along the posterior wall of the stomach adjacent to the pancreatic tail consistent with normal physiologic uptake. There is some residual hypermetabolic periaortic nodular uptake at the level of the pancreas. There is some new ascites in the pelvic reflections noted Interval History Day 10 chemoradiotherapy with 5-FU and palliative radiation to pancreatic bed Patient's weight is stable Increased fatigue noted Patient still not eating ice cream as recommended Patient remains profoundly depressed Radiation interval was increased from 5-3 weeks because of insurance company demand Unfortunately this will increase side effects and I disagree with the decision but we have no choice in the matter. Next week will be the last week of continuous 5-FU as is used for chemoradiotherapy Allergies Coded Allergies: No Known Allergies (Unverified , 06/05/19) Home Medications Active Scripts Cholestyramine (with Sugar) (Questran Packet) 4 Gm Powd.pack, 1 PKT PO DAILY for 30 Days, #30 PKT 2 Refills Prov:MARCE ERNANDEZ MD 07/01/19 Diphenoxylate HCl/Atropine (Lomotil 2.5-0.025 mg Tablet) 1 Each Tablet, 1 TAB PO TID MDD 3 Tablet(s) for 10 Days, #30 TAB Prov:MARCE ERNANDEZ MD 06/01/19 Morphine Sulfate (Morphine Sulfate) 10 Mg/5 Ml Solution, 7.5 MG PO Q4H PRN for PAIN MDD 45 for 14 Days, #315 ML Prov:Letitia Isaacs MD 12/30/18 Lidocaine/Prilocaine (Lidocaine-Prilocaine Cream) 2.5%/2.5% Cream..g., 1 APLCT TOP ASDIRECTED, #30 GRAM Prov:Letitia Isaacs MD 12/16/18 Gabapentin (Gabapentin) 300 Mg Capsule, 300 MG PO TID for pain for 90 Days, #270 CAP 1 Refill Prov:Letitia Isaacs MD 12/02/18 Ondansetron HCl (Ondansetron HCl) 4 Mg Tablet, 1 TAB PO Q6HP PRN for nausea/vomiting for 30 Days, #30 TAB 3 Refills Prov:Letitia Isaacs MD 11/05/18 Reported Medications Propranolol HCl (Propranolol HCl) 20 Mg Tablet, 1 TAB PO ASDIRECTED 06/17/19 Omeprazole (Omeprazole) 20 Mg Capsule.dr, 20 MG PO DAILY 03/20/19 Mv-Mn/Folic/[place]/Vit K/B Comp,C (Women's Daily Pack) 1 Each Tablet, 1 EACH PO QPM, TAB TAKES AT DINNERTIME 11/05/18 Aspirin (Aspirin) 81 Mg Tab.chew, 81 MG PO QHS 11/05/18 Ascorbic Acid (Vitamin C) 500 Mg Tablet, 500 MG PO QPM TAKES AT DINNERTIME 11/05/18 [place]-3 Fatty Acids/Fish Oil ([place] 3 Fish Oil Softgel) 1 Each Capsule.dr, 1 CAP PO QPM TAKES AT DINNER TIME 11/05/18 Atorvastatin Calcium (Atorvastatin Calcium) 40 Mg Tablet, 40 MG PO DAILY 11/05/18 Metformin HCl (Metformin HCl ER) 500 Mg Tab.er.24h, 1500 MG PO QPM 11/05/18 Past Medical History Past Medical History: Hyperlipidemia, GERD, hypertension, diabetes, right hand tremors. Review of Systems General: Reports: Normal Appetite; Denies: Chills, Fatigue, Malaise Constitutional: Reports: Fatigue, Weight Loss, Other symptoms (decreased appetite) Eyes: Denies: Vision change HEENT: Denies: Head Aches, Dysphagia, Sore Throat, Epistaxis Skin: Denies: Rash, Lesions, Jaundice, Bruising Pulmonary: Denies: Dyspnea, Cough Cardiovascular: Denies: Chest Pain, Palpitations, Orthopnea, Edema Gastrointestinal: Reports: Abdominal Pain, Diarrhea (at times) Genitourinary: Denies: Dysuria, Frequency, Incontinence Hematologic: Denies: Bruising, Petecchia Neurological: Reports: Weakness, Numbness; Denies: Change in Speech Psych: Reports: Anxiety, Depression Physical Examination General Exam: Positive: Moderate Distress Eye Exam: Positive: PERRLA, Conjunctiva & lids normal; Negative: Sclera icteric ENT EXAM: Positive: Atraumatic, Mucous membr. moist/pink Neck Exam: Reports: Supple; Denies: JVD, Thyromegaly, Lymphadenopathy Chest Exam: Positive: Clear to auscultation, Normal air movement Heart Exam: Positive: Rate Normal Abdomen Exam: Positive: Tenderness (midepigastric and mid abdominal diffuse tenderness. No rebound) Extremity Exam: Positive: Other (muscle wasting noted) Skin Exam: Positive: Nl turgor and temperature; Negative: Rash, Breakdown, Lesion Neuro Exam: Positive: Normal Tone Psych Exam: Positive: Anxiety Ht / Wt Ht / Wt Height:5 Feet 6 Inches Weight: 56.700 Kg Vital Signs Vital Signs Date Time Temp Pulse Resp B/P (MAP) Pulse Ox O2 Delivery O2 Flow Rate FiO2 07/17/19 14:00 97.8 72 16 134/73 (93) 98 Room Air Laboratory Data Laboratory Tests Test 07/10/19 14:56 07/13/19 10:10 Blood Urea Nitrogen 10 MG/DL (7-18) 9 MG/DL (7-18) Creatinine 0.58 MG/DL (0.55-1.30) 0.53 MG/DL (0.55-1.30) L Glomerular Filtration Rate > 60.0 (>39) > 60.0 (>39) Fasting Glucose 181 MG/DL (70-100) H 142 MG/DL (70-100) H Calcium Level 8.0 MG/DL (8.8-10.2) L 8.7 MG/DL (8.8-10.2) L Total Bilirubin 0.9 MG/DL (0.2-1.0) 0.7 MG/DL (0.2-1.0) Aspartate Amino Transf (AST/SGOT) 21 U/L (7-37) 18 U/L (7-37) Alanine Aminotransferase (ALT/SGPT) 19 U/L (12-78) 15 U/L (12-78) Total Protein 5.7 GM/DL (6.4-8.2) L 6.0 GM/DL (6.4-8.2) L Sodium Level 139 MEQ/L (136-145) 140 MEQ/L (136-145) Albumin 2.6 GM/DL (3.2-5.2) L 2.7 GM/DL (3.2-5.2) L Alkaline Phosphatase 136 U/L (45-117) H 122 U/L (45-117) H Potassium Level 3.8 MEQ/L (3.5-5.1) 4.0 MEQ/L (3.5-5.1) Chloride Level 105 MEQ/L (98-107) 106 MEQ/L (98-107) Carbon Dioxide Level 26 MEQ/L (21-32) 28 MEQ/L (21-32) Anion Gap 8 MEQ/L (8-16) 6 MEQ/L (8-16) L Assessment/Plan Assessment 1. Unresectable stage III pancreatic adenocarcinoma in the body of pancreas with stable disease (to possible slight progression) and rapidly rising CA-19-9 currently on palliative gemcitabine and Abraxane every 2 weeks with growth factor support. Current treatment clearly not going to keep her disease under control for much longer. 2. Intermittent diarrhea responded to Questran Recommendations Continue definitive (palliative) chemoradiotherapy with rapid rises CA-19-9 noted. I'm quite concerned with the insurance company demanding change from a five-week schedule to 3 week schedule. I have never my 20 years of practice, heard of this, think happening. I don't know what data they are using to demand this, but disagree with decision. 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 Video conference of entire office visit with at patient's request occurred today. More than 50% of the time was spent in direct [id number] discussion and counseling of the patient. CC TO: Primary Care Provider: Maci Roberts Np Oncologist: Rohan Fritz Problems: (1) Drug induced neutropenia (2) Carcinoma of body of pancreas (3) History of chemotherapy (4) Pancreas cancer (5) Intractable pain MARCE ERNANDEZ MD July 17, 2019 14:24
[2019-07-21 13:51] VITALS: BP 134/65
[2019-07-21 14:03] LABS: BASO % 0.4 % (0.0-1.0); EOS # 0.2 10^3/uL (0.0-0.5); EOS % 2.9 % (0.0-3.0); HEMATOCRIT 29.7 % (36.0-47.0); HEMOGLOBIN 9.1 g/dl (12.0-15.5); LYMPH # 0.5 10^3/uL (1.5-5.0); LYMPH % 6.8 % (24.0-44.0); MEAN CORPUSCULAR HEMOGLOBIN 30.1 pg (27.0-33.0); MEAN CORPUSCULAR HGB CONC 30.6 g/dl (32.0-36.5); MEAN CORPUSCULAR VOLUME 98.3 fl (80.0-96.0); MONO # 0.8 10^3/uL (0.0-0.8); MONO % 10.1 % (0.0-5.0); NEUTROPHILS # 6.2 10^3/uL (1.5-8.5); NEUTROPHILS % 79.4 % (36.0-66.0); PLATELET COUNT, AUTOMATED 120 10^3/uL (150-450); RED BLOOD COUNT 3.02 10^6/uL (4.00-5.40); WHITE BLOOD COUNT 7.9 10^3/uL (4.0-10.0)
[2019-07-21 14:32] LABS: ALBUMIN 2.6 GM/DL (3.2-5.2); ALT/SGPT 20 U/L (12-78); BILIRUBIN,TOTAL 1.1 MG/DL (0.2-1.0); BLOOD UREA NITROGEN 7 MG/DL (7-18); CALCIUM LEVEL 8.5 MG/DL (8.8-10.2); CARBON DIOXIDE LEVEL 28 MEQ/L (21-32); CHLORIDE LEVEL 104 MEQ/L (98-107); CREATININE FOR GFR 0.58 MG/DL (0.55-1.30); GLOMERULAR FILTRATION RATE > 60.0 (>39); GLUCOSE, FASTING 147 MG/DL (70-100); POTASSIUM SERUM 3.9 MEQ/L (3.5-5.1); SODIUM LEVEL 139 MEQ/L (136-145); TOTAL PROTEIN 5.9 GM/DL (6.4-8.2)
--- NOTE | 2019-07-21 15:01 | ONC.PHACK ---
CHEMO ADMIN CHECKLIST Order Contains Pt ID: Name, Order on Chemo Order Form?: Yes Order Form Includes ALL: Correct Tx Day, Correct Date, Correct Cycle Number Pt ID on Order form Matches: Pt ID on PHA Label Med on Chemo OrderForm Matches: PHA Label, Med Used for Preparation [facility] July 21, 2019 15:01
[2019-07-24 13:37] VITALS: BP 107/67
[2019-07-24 13:37] LABS: BASO # 0.1 10^3/uL (0.0-0.2); BASO % 0.6 % (0.0-1.0); EOS # 0.2 10^3/uL (0.0-0.5); HEMATOCRIT 29.3 % (36.0-47.0); LYMPH # 0.4 10^3/uL (1.5-5.0); LYMPH % 4.8 % (24.0-44.0); MEAN CORPUSCULAR HEMOGLOBIN 30.2 pg (27.0-33.0); MEAN CORPUSCULAR HGB CONC 30.7 g/dl (32.0-36.5); MEAN CORPUSCULAR VOLUME 98.3 fl (80.0-96.0); MONO # 0.7 10^3/uL (0.0-0.8); MONO % 9.5 % (0.0-5.0); NEUTROPHILS # 6.4 10^3/uL (1.5-8.5); NEUTROPHILS % 81.8 % (36.0-66.0); PLATELET COUNT, AUTOMATED 102 10^3/uL (150-450); RED BLOOD COUNT 2.98 10^6/uL (4.00-5.40); WHITE BLOOD COUNT 7.8 10^3/uL (4.0-10.0)
--- NOTE | 2019-07-24 13:53 | MEDONCPDOC ---
Medical Oncology Office Note Date of Service: July 24, 2019 Diagnosis/Treatment History Oncology problem list 1. 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 2. Cancer related pain status post celiac node block 02/09/2019 3. Failure to thrive with decreased appetite and increased fatigue Diagnostics CT of the abdomen and pelvis performed May 25 Is reviewed with the patient and copy of report given to patient This revealed evidence of pancreatic edema causing compression of nearby structures as well as periportal edema this represents a change from prior exam of undetermined etiology the retroperitoneal adenopathy in the periaortic area has increased slightly and a small amount of fluid seen in these of the small bowel mesentery. This seems to be severe compression of the portal splenic confluence CT of the chest performed 05/26/2019 Was reviewed with the patient Revealed no evidence of acute intrathoracic disease PET/CT scan performed 05/25/2019 Persistent hypermetabolic uptake was seen in both the body and the tail of the pancreas. There is improved avidity below slightly maximum uptake is 5.01 previously 6.20. The portion of the body and tail of pancreas is slightly thicker than on the CT scan done previously. The body of the pancreas bruising measured 1.9 cm currently 3.0 cm. Tumor measured 2.3 cm currently 2.2 cm. There is hypermetabolic uptake along the posterior wall of the stomach adjacent to the pancreatic tail consistent with normal physiologic uptake. There is some residual hypermetabolic periaortic nodular uptake at the level of the pancreas. There is some new ascites in the pelvic reflections noted Interval History Day 15 chemoradiotherapy with 5-FU and palliative radiation to pancreatic bed Patient's weight is stable Increased fatigue noted Patient remains profoundly depressed Last dose of radiation tomorrow Reports getting enough hydration and Appetite remains suppressed is still a problem Patient reports some abdominal pain and intermittent diarrhea Allergies Coded Allergies: No Known Allergies (Unverified , 06/05/19) Home Medications Active Scripts Cholestyramine (with Sugar) (Questran Packet) 4 Gm Powd.pack, 1 PKT PO DAILY for 30 Days, #30 PKT 2 Refills Prov:MARCE ERNANDEZ MD 07/01/19 Diphenoxylate HCl/Atropine (Lomotil 2.5-0.025 mg Tablet) 1 Each Tablet, 1 TAB PO TID MDD 3 Tablet(s) for 10 Days, #30 TAB Prov:MARCE ERNANDEZ MD 06/01/19 Morphine Sulfate (Morphine Sulfate) 10 Mg/5 Ml Solution, 7.5 MG PO Q4H PRN for PAIN MDD 45 for 14 Days, #315 ML Prov:Letitia Isaacs MD 12/30/18 Lidocaine/Prilocaine (Lidocaine-Prilocaine Cream) 2.5%/2.5% Cream..g., 1 APLCT TOP ASDIRECTED, #30 GRAM Prov:Letitia Isaacs MD 12/16/18 Gabapentin (Gabapentin) 300 Mg Capsule, 300 MG PO TID for pain for 90 Days, #270 CAP 1 Refill Prov:Letitia Isaacs MD 12/02/18 Ondansetron HCl (Ondansetron HCl) 4 Mg Tablet, 1 TAB PO Q6HP PRN for nausea/vomiting for 30 Days, #30 TAB 3 Refills Prov:Letitia Isaacs MD 11/05/18 Reported Medications Propranolol HCl (Propranolol HCl) 20 Mg Tablet, 1 TAB PO ASDIRECTED 06/17/19 Omeprazole (Omeprazole) 20 Mg Capsule.dr, 20 MG PO DAILY 03/20/19 Mv-Mn/Folic/[place]olina/Vit K/B Comp,C (Women's Daily Pack) 1 Each Tablet, 1 EACH PO QPM, TAB TAKES AT DINNERTIME 11/05/18 Aspirin (Aspirin) 81 Mg Tab.chew, 81 MG PO QHS 11/05/18 Ascorbic Acid (Vitamin C) 500 Mg Tablet, 500 MG PO QPM TAKES AT DINNERTIME 11/05/18 [place]-3 Fatty Acids/Fish Oil ([place] 3 Fish Oil Softgel) 1 Each Capsule.dr, 1 CAP PO QPM TAKES AT DINNER TIME 11/05/18 Atorvastatin Calcium (Atorvastatin Calcium) 40 Mg Tablet, 40 MG PO DAILY 11/05/18 Metformin HCl (Metformin HCl ER) 500 Mg Tab.er.24h, 1500 MG PO QPM 11/05/18 Past Medical History Past Medical History: Hyperlipidemia, GERD, hypertension, diabetes, right hand tremors. Review of Systems General: Reports: Normal Appetite; Denies: Chills, Fatigue, Malaise Constitutional: Reports: Fatigue Eyes: Denies: Vision change HEENT: Denies: Head Aches, Dysphagia, Sore Throat, Epistaxis Skin: Denies: Rash, Lesions, Jaundice, Bruising Pulmonary: Denies: Dyspnea, Cough Cardiovascular: Denies: Chest Pain, Palpitations, Orthopnea, Edema Gastrointestinal: Reports: Abdominal Pain, Diarrhea Genitourinary: Denies: Dysuria, Frequency, Incontinence Hematologic: Denies: Bruising, Petecchia Neurological: Reports: Weakness Psych: Reports: Depression Physical Examination General Exam: Positive: Cooperative, Mild Distress Eye Exam: Positive: PERRLA, Conjunctiva & lids normal; Negative: Sclera icteric ENT EXAM: Positive: Atraumatic, Mucous membr. moist/pink Neck Exam: Reports: Supple; Denies: JVD, Thyromegaly, Lymphadenopathy Chest Exam: Positive: Clear to auscultation, Normal air movement Heart Exam: Positive: Rate Normal Abdomen Exam: Positive: Tenderness (minimal, no rebound), Other (some distention) Extremity Exam: Negative: Clubbing, Cyanosis, Edema Skin Exam: Positive: Nl turgor and temperature; Negative: Rash, Breakdown, Lesion Neuro Exam: Positive: Normal Speech, Normal Tone Psych Exam: Positive: Mental status NL Ht / Wt Ht / Wt Height:5 Feet 6 Inches Weight: 56.400 Kg Vital Signs Vital Signs Date Time Temp Pulse Resp B/P (MAP) Pulse Ox O2 Delivery O2 Flow Rate FiO2 07/24/19 13:37 97.5 77 16 107/67 (80) 99 Room Air 07/21/19 13:51 98.0 Laboratory Data Laboratory Tests Test 07/21/19 13:46 07/24/19 13:22 Blood Urea Nitrogen 7 MG/DL (7-18) Creatinine 0.58 MG/DL (0.55-1.30) Glomerular Filtration Rate > 60.0 (>39) Fasting Glucose 147 MG/DL (70-100) H Calcium Level 8.5 MG/DL (8.8-10.2) L Total Bilirubin 1.1 MG/DL (0.2-1.0) H Aspartate Amino Transf (AST/SGOT) 35 U/L (7-37) Alanine Aminotransferase (ALT/SGPT) 20 U/L (12-78) Total Protein 5.9 GM/DL (6.4-8.2) L Sodium Level 139 MEQ/L (136-145) Albumin 2.6 GM/DL (3.2-5.2) L Alkaline Phosphatase 193 U/L (45-117) H Potassium Level 3.9 MEQ/L (3.5-5.1) Chloride Level 104 MEQ/L (98-107) Carbon Dioxide Level 28 MEQ/L (21-32) Anion Gap 7 MEQ/L (8-16) L Laboratory Tests 07/24/19 13:22 Assessment/Plan Assessment 1. Unresectable stage III pancreatic adenocarcinoma in the body of pancreas with early progression and failure of Abraxane. Currently receiving chemoradiation with 1 dose radiation to next week 2. Intermittent diarrhea responded to Questran Recommendations Complete definitive (palliative) chemoradiotherapy Continue to use Questran as needed See the patient back next Saturday for blood work and evaluation I spent 20 minutes during this visit seeing the patient [id number] and reviewing records. Video conference of entire office visit with at patient's request occurred today. More than 50% of the time was spent in direct [id number] discussion and counseling of the patient. CC TO: Primary Care Provider: Maci Roberts Np XRT Oncologist: Rohan Fritz Problems: (1) Pancreas cancer MARCE ERNANDEZ MD July 24, 2019 13:53
[2019-07-24 13:57] LABS: ALBUMIN 2.5 GM/DL (3.2-5.2); ALT/SGPT 19 U/L (12-78); BILIRUBIN,TOTAL 0.9 MG/DL (0.2-1.0); BLOOD UREA NITROGEN 7 MG/DL (7-18); CALCIUM LEVEL 8.2 MG/DL (8.8-10.2); CARBON DIOXIDE LEVEL 31 MEQ/L (21-32); CHLORIDE LEVEL 105 MEQ/L (98-107); CREATININE FOR GFR 0.51 MG/DL (0.55-1.30); GLOMERULAR FILTRATION RATE > 60.0 (>39); GLUCOSE, FASTING 163 MG/DL (70-100); POTASSIUM SERUM 3.5 MEQ/L (3.5-5.1); SODIUM LEVEL 140 MEQ/L (136-145); TOTAL PROTEIN 5.6 GM/DL (6.4-8.2)
--- NOTE | 2019-07-30 11:55 | MEDONCTEEN ---
Date/Time of Encounter Date of Encounter: Jul 30, 2019 Time of Encounter: 11:50 Telephone Encounter Oncology Telephone discussion with patient's daughter Sabrina [phone] Patient gave consent for me to talk to her daughter We discussed overall prognosis which is poor We discussed trajectory of decline which is ongoing We discussed ongoing weight loss We discussed goals of care Patient had locally advanced cancer and is doing well with first-line therapy and progressed with chemotherapy. Patient has completed chemoradiotherapy to help with local control Issues restaging scans coming up Expected survival at this point given trajectory of decline is approximately 6 months This is with or without treatment For patients receive additional palliative chemotherapy, patient will have to have improvement in her clinical state Presently Karnofsky score is approximately 6070% Patient is not eligible for chcf at this time Patient is eligible for hospice Recommend enrollment in hospice to help with services at home and to help care for the patient Patient's daughter understands this is a voluntary decision and can come on and off hospice at well MARCE ERNANDEZ MD Jul 30, 2019 11:55
[2019-08-03 13:58] VITALS: BP 104/63
[2019-08-03 14:10] LABS: BASO % 0.6 % (0.0-1.0); EOS # 0.4 10^3/uL (0.0-0.5); HEMATOCRIT 28.5 % (36.0-47.0); HEMOGLOBIN 8.9 g/dl (12.0-15.5); LYMPH # 0.4 10^3/uL (1.5-5.0); LYMPH % 5.1 % (24.0-44.0); MEAN CORPUSCULAR HGB CONC 31.2 g/dl (32.0-36.5); MONO # 0.9 10^3/uL (0.0-0.8); MONO % 11.8 % (0.0-5.0); NEUTROPHILS # 5.6 10^3/uL (1.5-8.5); NEUTROPHILS % 77.2 % (36.0-66.0); RED BLOOD COUNT 2.97 10^6/uL (4.00-5.40); WHITE BLOOD COUNT 7.2 10^3/uL (4.0-10.0)
[2019-08-03 14:12] LABS: PLATELET COUNT, AUTOMATED 93 10^3/uL (150-450)
--- NOTE | 2019-08-03 14:19 | MEDONCPDOC ---
Medical Oncology Office Note Date of Service: Aug 03, 2019 Diagnosis/Treatment History Oncology problem list 1. 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 Cancer related pain status post celiac node block 02/09/2019 3. Failure to thrive with decreased appetite and increased fatigue Diagnostics CT of the abdomen and pelvis performed May 25 Is reviewed with the patient and copy of report given to patient This revealed evidence of pancreatic edema causing compression of nearby structures as well as periportal edema this represents a change from prior exam of undetermined etiology the retroperitoneal adenopathy in the periaortic area has increased slightly and a small amount of fluid seen in these of the small bowel mesentery. This seems to be severe compression of the portal splenic confluence CT of the chest performed 05/26/2019 Was reviewed with the patient Revealed no evidence of acute intrathoracic disease PET/CT scan performed 05/25/2019 Persistent hypermetabolic uptake was seen in both the body and the tail of the pancreas. There is improved avidity below slightly maximum uptake is 5.01 previously 6.20. The portion of the body and tail of pancreas is slightly thicker than on the CT scan done previously. The body of the pancreas bruising measured 1.9 cm currently 3.0 cm. Tumor measured 2.3 cm currently 2.2 cm. There is hypermetabolic uptake along the posterior wall of the stomach adjacent to the pancreatic tail consistent with normal physiologic uptake. There is some residual hypermetabolic periaortic nodular uptake at the level of the pancreas. There is some new ascites in the pelvic reflections noted Interval History Patient's approximate 1 week out status post completion of chemoradiotherapy Family meeting today and children present Goals of care discussed Overall terminal nature disease and poor prognosis discussed. Trajectory of decline worse improvement will determine expected survival Limited options moving forward discussed Preference for clinical trial treatment upon progression discussed Informational visit with hospice was made last week. NCCN guidelines reviewed Preference for clinical trial enrollment We'll ask [facility] pathology to perform NTRK gene fusion testing and MSI/dMMR testing. [facility] testing is also an option. Allergies Coded Allergies: No Known Allergies (Unverified , 06/05/19) Home Medications Active Scripts Cholestyramine (with Sugar) (Questran Packet) 4 Gm Powd.pack, 1 PKT PO DAILY for 30 Days, #30 PKT 2 Refills Prov:MARCE ERNANDEZ MD 07/01/19 Diphenoxylate HCl/Atropine (Lomotil 2.5-0.025 mg Tablet) 1 Each Tablet, 1 TAB PO TID MDD 3 Tablet(s) for 10 Days, #30 TAB Prov:MARCE ERNANDEZ MD 06/01/19 Morphine Sulfate (Morphine Sulfate) 10 Mg/5 Ml Solution, 7.5 MG PO Q4H PRN for PAIN MDD 45 for 14 Days, #315 ML Prov:Letitia Isaacs MD 12/30/18 Lidocaine/Prilocaine (Lidocaine-Prilocaine Cream) 2.5%/2.5% Cream..g., 1 APLCT TOP ASDIRECTED, #30 GRAM Prov:Letitia Isaacs MD 12/16/18 Gabapentin (Gabapentin) 300 Mg Capsule, 300 MG PO TID for pain for 90 Days, #270 CAP 1 Refill Prov:Letitia Isaacs MD 12/02/18 Ondansetron HCl (Ondansetron HCl) 4 Mg Tablet, 1 TAB PO Q6HP PRN for nausea/vomiting for 30 Days, #30 TAB 3 Refills Prov:Letitia Isaacs MD 11/05/18 Reported Medications Propranolol HCl (Propranolol HCl) 20 Mg Tablet, 1 TAB PO ASDIRECTED 06/17/19 Omeprazole (Omeprazole) 20 Mg Capsule.dr, 20 MG PO DAILY 03/20/19 Mv-Mn/Folic/[place]/Vit K/B Comp,C (Women's Daily Pack) 1 Each Tablet, 1 EACH PO QPM, TAB TAKES AT DINNERTIME 11/05/18 Aspirin (Aspirin) 81 Mg Tab.chew, 81 MG PO QHS 11/05/18 Ascorbic Acid (Vitamin C) 500 Mg Tablet, 500 MG PO QPM TAKES AT DINNERTIME 11/05/18 [place]-3 Fatty Acids/Fish Oil ([place] 3 Fish Oil Softgel) 1 Each Capsule.dr, 1 CAP PO QPM TAKES AT DINNER TIME 11/05/18 Atorvastatin Calcium (Atorvastatin Calcium) 40 Mg Tablet, 40 MG PO DAILY 11/05/18 Metformin HCl (Metformin HCl ER) 500 Mg Tab.er.24h, 1500 MG PO QPM 11/05/18 Past Medical History Past Medical History: Hyperlipidemia, GERD, hypertension, diabetes, right hand tremors. Review of Systems Constitutional: Reports: Fatigue, Weight Loss, Lethargy Gastrointestinal: Reports: Diarrhea Psych: Reports: Anxiety, Depression, Memory Issues Physical Examination General Exam: Positive: Cooperative Chest Exam: Positive: Clear to auscultation Heart Exam: Positive: Regular Rhythm Ht / Wt Ht / Wt Height:5 Feet 6 Inches Weight: 55.500 Kg Vital Signs Vital Signs Date Time Temp Pulse Resp B/P (MAP) Pulse Ox O2 Delivery O2 Flow Rate FiO2 08/03/19 13:58 97.7 88 16 104/63 (77) 98 Room Air Laboratory Data Laboratory Tests Test 08/03/19 13:57 Laboratory Tests 08/03/19 13:57 Assessment/Plan Assessment 1. Unresectable stage III pancreatic adenocarcinoma in the body of pancreas with early progression and failure of Abraxane. Currently receiving chemoradiation with 1 dose radiation to next week 2. Intermittent diarrhea responded to Questran Recommendations Restaging exam in 3 weeks f/u 4 weeks for results [facility] pathology to perform NTRK gene fusion testing and MSI/dMMR testing I spent 45 minutes during this visit seeing the patient [id number] with family meeting with daughters and present CC TO: Primary Care Provider: Maci Roberts Np XRT Oncologist: Rohan Fritz Problems: (1) History of chemotherapy (2) Carcinoma of body of pancreas MARCE ERNANDEZ MD Aug 03, 2019 14:19
[2019-08-03 14:48] LABS: ALBUMIN 2.3 GM/DL (3.2-5.2); ALT/SGPT 13 U/L (12-78); BILIRUBIN,TOTAL 0.8 MG/DL (0.2-1.0); BLOOD UREA NITROGEN 8 MG/DL (7-18); CALCIUM LEVEL 8.3 MG/DL (8.8-10.2); CARBON DIOXIDE LEVEL 30 MEQ/L (21-32); CHLORIDE LEVEL 104 MEQ/L (98-107); CREATININE FOR GFR 0.67 MG/DL (0.55-1.30); GLOMERULAR FILTRATION RATE > 60.0 (>39); GLUCOSE, FASTING 144 MG/DL (70-100); POTASSIUM SERUM 3.4 MEQ/L (3.5-5.1); SODIUM LEVEL 140 MEQ/L (136-145); TOTAL PROTEIN 5.9 GM/DL (6.4-8.2)
[~2019-08-20] VITALS: Ht 167.6 cm; Wt 57.3 kg
[~2019-08-20 10:18] MED LIST changes: +ACETAMINOPHEN TAB 650MG DOSE (2X325MG) PO SCH; +ATROPINE SULFATE 0.25 MG IVP IV ONE; +DEXAMETHASONE 8 MG ONE; +FILGRASTIM 300 MCG/0.5 ML SYRINGE (J1442 PER 1MCG) SC ONE; +FLUOROURACIL IV ONE; +GEMCITABINE IV ONE; +NALOXONE 2MG/2ML SYRINGE (J2310 PER 1MG) As Ordered ONE; +NS 1,000 ML IV ONE; +NS IV ONE; +ONDANSETRON 4MG/2ML VIAL IV ONE; +PACLITAXEL PROTEIN BOUND IV ONE; +PALONOSETRON 250 MCG IV IV ONE; +PILL CUTTER 1 EACH XX PRN; +PROCHLORPERAZINE 10 MG PO PO ONE; +SODIUM CHLORIDE 0.9% INJ 10 ML SYR IV PRN; +dexameTHASONE 10 MG IV IV ONE; +dexameTHASONE 10 MG PO PO ONE; +dexameTHASONE 20 MG IV IV ONE; +dexameTHASONE 20MG/5ML VIAL (J1100 PER 1MG) IV ONE; +dexameTHASONE 4 MG/ML 1ML VIAL (J1100 PER 1MG) IV ONE; +diphenhydrAMINE 25MG CAP PO SCH
[2019-08-20 10:30] VITALS: BP 117/75
--- NOTE | 2019-08-20 10:45 | MEDONCPDOC ---
Medical Oncology Office Note Date of Service: Aug 20, 2019 Diagnosis/Treatment History Oncology problem list 1. 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 Cancer related pain status post celiac node block 02/09/2019 3. Failure to thrive with decreased appetite and increased fatigue 4. Newly diagnosed bilateral deep vein thrombosis right femoral vein and left popliteal 5. Recent melena at home with concern for active GI bleed Diagnostics CT of the abdomen and pelvis performed May 25 Is reviewed with the patient and copy of report given to patient This revealed evidence of pancreatic edema causing compression of nearby structures as well as periportal edema this represents a change from prior exam of undetermined etiology the retroperitoneal adenopathy in the periaortic area has increased slightly and a small amount of fluid seen in these of the small bowel mesentery. This seems to be severe compression of the portal splenic confluence CT of the chest performed 05/26/2019 Was reviewed with the patient Revealed no evidence of acute intrathoracic disease PET/CT scan performed 05/25/2019 Persistent hypermetabolic uptake was seen in both the body and the tail of the pancreas. There is improved avidity below slightly maximum uptake is 5.01 previously 6.20. The portion of the body and tail of pancreas is slightly thicker than on the CT scan done previously. The body of the pancreas bruising measured 1.9 cm currently 3.0 cm. Tumor measured 2.3 cm currently 2.2 cm. There is hypermetabolic uptake along the posterior wall of the stomach adjacent to the pancreatic tail consistent with normal physiologic uptake. There is some residual hypermetabolic periaortic nodular uptake at the level of the pancreas. There is some new ascites in the pelvic reflections noted Interval History Patient's family called last night with complaint of patient having dark melanotic stools, severe right leg swelling and to a lesser extent left leg sw elling. The daughter reported that the right leg was "hard" Patient refused evaluation by the emergency room last night Bilateral acute deep vein thrombosis noted Is not safe to anticoagulate outside of observation given recent bleeding Patient is agreeable for emergency room evaluation and then admission Recommend heparin Recommend upper endoscopy Allergies Coded Allergies: No Known Allergies (Unverified , 06/05/19) Home Medications Active Scripts Morphine Sulfate (Morphine Sulfate) 10 Mg/5 Ml Solution, 7.5 MG PO Q4H PRN for PAIN MDD 45 for 14 Days, #315 ML Prov:Letitia Isaacs MD 12/30/18 Lidocaine/Prilocaine (Lidocaine-Prilocaine Cream) 2.5%/2.5% Cream..g., 1 APLCT TOP ASDIRECTED, #30 GRAM Prov:Letitia Isaacs MD 12/16/18 Gabapentin (Gabapentin) 300 Mg Capsule, 300 MG PO TID for pain for 90 Days, #270 CAP 1 Refill Prov:Letitia Isaacs MD 12/02/18 Ondansetron HCl (Ondansetron HCl) 4 Mg Tablet, 1 TAB PO Q6HP PRN for nausea/vomiting for 30 Days, #30 TAB 3 Refills Prov:Letitia Isaacs MD 11/05/18 Reported Medications Metformin HCl (Metformin HCl ER) 500 Mg Tab.er.24h, 500 MG PO QAM, TAB 08/20/19 Propranolol HCl (Propranolol HCl) 10 Mg Tablet, 20 MG PO BID, TAB 08/20/19 Omeprazole (Omeprazole) 20 Mg Capsule.dr, 20 MG PO DAILY 03/20/19 Mv-Mn/Folic/[place]olina/Vit K/B Comp,C (Women's Daily Pack) 1 Each Tablet, 1 EACH PO QPM, TAB TAKES AT DINNERTIME 11/05/18 Aspirin (Aspirin) 81 Mg Tab.chew, 81 MG PO QPM DINNERTIME 11/05/18 Ascorbic Acid (Vitamin C) 500 Mg Tablet, 500 MG PO QPM TAKES AT DINNERTIME 11/05/18 Daisy-3 Fatty Acids/Fish Oil (Daisy 3 Fish Oil Softgel) 1 Each Capsule.dr, 1 CAP PO QPM TAKES AT DINNER TIME 11/05/18 Atorvastatin Calcium (Atorvastatin Calcium) 40 Mg Tablet, 40 MG PO DAILY 11/05/18 Metformin HCl (Metformin HCl ER) 500 Mg Tab.er.24h, 1000 MG PO QPM 11/05/18 Discontinued Reported Medications Metformin HCl (Metformin HCl) 500 Mg Tablet, 1 TAB PO DAILY for 30 Days, #60 TAB 08/20/19 Propranolol HCl (Propranolol HCl) 20 Mg Tablet, 2 TAB PO BID 06/17/19 Discontinued Scripts Cholestyramine (with Sugar) (Questran Packet) 4 Gm Powd.pack, 1 PKT PO DAILY for 30 Days, #30 PKT 2 Refills Prov:MARCE ERNANDEZ MD 07/01/19 Diphenoxylate HCl/Atropine (Lomotil 2.5-0.025 mg Tablet) 1 Each Tablet, 1 TAB PO TID MDD 3 Tablet(s) for 10 Days, #30 TAB Prov:MARCE ERNANDEZ MD 06/01/19 Past Medical History Past Medical History: Hyperlipidemia, GERD, hypertension, diabetes, right hand tremors. Review of Systems General: Reports: Fatigue, Malaise Constitutional: Reports: Fatigue, Weight Loss, Lethargy Eyes: Denies: Vision change HEENT: Denies: Head Aches, Dysphagia, Sore Throat, Epistaxis Skin: Denies: Rash, Lesions, Jaundice, Bruising Pulmonary: Reports: Dyspnea Cardiovascular: Denies: Chest Pain, Palpitations, Orthopnea, Edema Breast: Denies: New Breast Lumps / Masses, Breast Skin Changes, Breast Pain or Tenderness Gastrointestinal: Denies: Nausea, Vomiting, Diarrhea Genitourinary: Denies: Dysuria, Frequency, Incontinence Hematologic: Denies: Bruising, Petecchia Neurological: Reports: Weakness, Incoordination Psych: Reports: Mood Normal Physical Examination General Exam: Positive: Severe Distress Eye Exam: Positive: PERRLA, Conjunctiva & lids normal; Negative: Sclera icteric ENT EXAM: Positive: Atraumatic, Mucous membr. moist/pink Neck Exam: Reports: Supple; Denies: JVD, Thyromegaly, Lymphadenopathy Chest Exam: Positive: Diminished Heart Exam: Positive: Tachycardic (beat) Breast Exam: Positive: Symmetric Bilaterally; Negative: Lumps or Masses, Skin Changes Abdomen Exam: Positive: Tenderness (with epigastric area) Extremity Exam: Positive: Edema (significant r 2+ ight lower extremity, and left leg 1+ edema) Skin Exam: Positive: Nl turgor and temperature; Negative: Rash, Breakdown, Lesion Neuro Exam: Positive: Normal Tone, Other (muscle wasting noted) Psych Exam: Positive: Mental status NL Ht / Wt Ht / Wt Height:5 Feet 6 Inches Weight: 57.300 Kg Vital Signs Vital Signs Date Time Temp Pulse Resp B/P (MAP) Pulse Ox O2 Delivery O2 Flow Rate FiO2 08/20/19 10:30 96.7 109 16 117/75 (89) 94 Room Air Laboratory Data Laboratory Tests Test 08/20/19 11:31 08/20/19 13:09 Blood Urea Nitrogen 7 MG/DL (7-18) 7 MG/DL (7-18) Creatinine 0.54 MG/DL (0.55-1.30) L 0.58 MG/DL (0.55-1.30) Glomerular Filtration Rate > 60.0 (>39) > 60.0 (>39) Fasting Glucose 152 MG/DL (70-100) H 138 MG/DL (70-100) H Calcium Level 8.4 MG/DL (8.8-10.2) L 8.5 MG/DL (8.8-10.2) L Total Bilirubin 0.9 MG/DL (0.2-1.0) 0.9 MG/DL (0.2-1.0) Aspartate Amino Transf (AST/SGOT) 65 U/L (7-37) H 67 U/L (7-37) H Alanine Aminotransferase (ALT/SGPT) 16 U/L (12-78) 18 U/L (12-78) Total Protein 5.8 GM/DL (6.4-8.2) L 5.6 GM/DL (6.4-8.2) L Sodium Level 135 MEQ/L (136-145) L 138 MEQ/L (136-145) Albumin 2.1 GM/DL (3.2-5.2) L 2.0 GM/DL (3.2-5.2) L Alkaline Phosphatase 376 U/L (45-117) H 372 U/L (45-117) H Potassium Level 3.6 MEQ/L (3.5-5.1) 3.8 MEQ/L (3.5-5.1) Chloride Level 100 MEQ/L (98-107) 101 MEQ/L (98-107) Carbon Dioxide Level 29 MEQ/L (21-32) 27 MEQ/L (21-32) Anion Gap 6 MEQ/L (8-16) L 10 MEQ/L (8-16) Thyroid Stimulating Hormone (TSH) 2.280 uIU/ML (0.358-3.740) Laboratory Tests 08/20/19 11:31 08/20/19 13:09 Assessment/Plan Assessment 1. Unresectable stage III pancreatic adenocarcinoma in the body of pancreas with early progression and failure of Abraxane. S/p palliative XRT with clinical failure to thrive 2. Intermittent diarrhea responded to Questran 3. New DVT RLE Femoral vein 4. New DVT left popliteal vein 5. Clinical history consistent with GI bleed with melena at home Recommendations Recommend admission Recommend heparin administration Recommend upper endoscopy of ongoing bleeding found Recommend serial CBC and chest fusion as indicated If no bleeding, a proceed with Lovenox 1 mg/kg equals 60 mg subcutaneous twice a day new patient I spent 30 minutes during this visit seeing the patient [id number] with family meeting with daughter Sabrina and present CC TO: Primary Care Provider: Maci Roberts Np XRT Oncologist: Rohan Fritz Problems: (1) Pancreas cancer (2) Carcinoma of body of pancreas (3) Intractable pain (4) History of chemotherapy MARCE ERNANDEZ MD Aug 20, 2019 10:45
[2019-08-20 11:56] LABS: BASO % 0.4 % (0.0-1.0); EOS # 0.2 10^3/uL (0.0-0.5); EOS % 2.7 % (0.0-3.0); HEMATOCRIT 31.2 % (36.0-47.0); HEMOGLOBIN 9.8 g/dl (12.0-15.5); LYMPH # 0.4 10^3/uL (1.5-5.0); LYMPH % 5.1 % (24.0-44.0); MEAN CORPUSCULAR HEMOGLOBIN 29.5 pg (27.0-33.0); MEAN CORPUSCULAR HGB CONC 31.4 g/dl (32.0-36.5); MONO # 0.8 10^3/uL (0.0-0.8); MONO % 11.1 % (0.0-5.0); NEUTROPHILS # 5.9 10^3/uL (1.5-8.5); NEUTROPHILS % 80.4 % (36.0-66.0); PLATELET COUNT, AUTOMATED 101 10^3/uL (150-450); RED BLOOD COUNT 3.32 10^6/uL (4.00-5.40); WHITE BLOOD COUNT 7.4 10^3/uL (4.0-10.0)
[2019-08-20 12:06] LABS: INR 1.76; PROTHROMBIN TIME 20.3 SECONDS (11.8-14.0)
[2019-08-20 12:07] LABS: PARTIAL THROMBOPLASTIN TIME 81.9 SECONDS (25.0-38.4)
[2019-08-20 12:30] LABS: ALBUMIN 2.1 GM/DL (3.2-5.2); ALT/SGPT 16 U/L (12-78); BILIRUBIN,TOTAL 0.9 MG/DL (0.2-1.0); BLOOD UREA NITROGEN 7 MG/DL (7-18); CALCIUM LEVEL 8.4 MG/DL (8.8-10.2); CARBON DIOXIDE LEVEL 29 MEQ/L (21-32); CHLORIDE LEVEL 100 MEQ/L (98-107); CREATININE FOR GFR 0.54 MG/DL (0.55-1.30); GLOMERULAR FILTRATION RATE > 60.0 (>39); GLUCOSE, FASTING 152 MG/DL (70-100); POTASSIUM SERUM 3.6 MEQ/L (3.5-5.1); SODIUM LEVEL 135 MEQ/L (136-145); TOTAL PROTEIN 5.8 GM/DL (6.4-8.2)
--- NOTE | 2019-08-26 15:08 | MEDONCTEEN ---
Date/Time of Encounter Date of Encounter: Aug 26, 2019 Time of Encounter: 15:00 Telephone Encounter Diagnosis widespread pancreatic adenocarcinoma divided pancreas with liver metastasis and recent hospitalization with massive pulmonary embolism and GI bleed Severe failure to thrive Rapidly rising CA-19-9 03/16/1999 [id number] 06/03/2019 11,363 07/01/2019 46,709 07/24/2019 640,688 08/03/1999 1,200,491 Discussion with regarding recent CT scan findings from today [phone] Explosive disease of her pancreas cancer noted with large tumor burden in her liver which is all brand-new Progression of her pulmonary embolism noted with saddle emboli Continue 2 people to get patient in and out of her house and into and out of the car Severe failure to thrive noted Patient will be bed ridden soon Based on trajectory of decline, estimated survival weeks to months Recommend patient stay home with hospice Family and patient in agreement Referral made today MARCE ERNANDEZ MD Aug 26, 2019 15:08
== END | disposition home or self-care (01) ==
LOC: M ONCM 11-05 13:47
PROVIDERS: ATTEND Internal Medicine Medical Oncology
DX: Z51.11 Encounter for antineoplastic chemotherapy (principal); C25.9 Malignant neoplasm of pancreas, unspecified; D70.2 Other drug-induced agranulocytosis; E78.5 Hyperlipidemia, unspecified; K21.9 Gastro-esophageal reflux disease without esophagitis; I10 Essential (primary) hypertension; E11.9 Type 2 diabetes mellitus without complications; Z79.899 Other long term (current) drug therapy; R19.7 Diarrhea, unspecified; N39.0 Urinary tract infection, site not specified; D70.9 Neutropenia, unspecified
CPT/HCPCS: 36415; 36430; 36591; 71045; 71275; 74178; 80047; 80048; 80053; 80076; 81001; 82550; 82553; 82607; 82728; 82746; 83550; 83615; 83880; 84443; 84484; 85025; 85027; 85049; 85055; 85610; 85730; 86300; 86301; 86850; 86900; 86901; 86920; 87040; 87086; 87486; 87581; 87633; 87798; 93005; 93041; 94760; 96361; 96372; 96375; 96413; 96417; 99283; 99285; C8957; G0463; J0461; J1100; J1442; J1642; J1644; J2405; J2469; J9190; J9201; J9264; P9016; Q9963; Q9967; U0002

== ENCOUNTER 2019-08-20 11:51 | Emergency (ER) | payer MEDICARE ==
[~2019-08-20] VITALS: Ht 167.6 cm; Wt 57.3 kg
[~2019-08-20 11:51] MED LIST changes: -ACETAMINOPHEN TAB 650MG DOSE (2X325MG) PO SCH; -ATROPINE SULFATE 0.25 MG IVP IV ONE; -DEXAMETHASONE 8 MG ONE; -FILGRASTIM 300 MCG/0.5 ML SYRINGE (J1442 PER 1MCG) SC ONE; -FLUOROURACIL IV ONE; -GEMCITABINE IV ONE; -METF-839 PO; -NALOXONE 2MG/2ML SYRINGE (J2310 PER 1MG) As Ordered ONE; -NS 1,000 ML IV ONE; -NS IV ONE; -ONDANSETRON 4MG/2ML VIAL IV ONE; -PACLITAXEL PROTEIN BOUND IV ONE; -PALONOSETRON 250 MCG IV IV ONE; -PILL CUTTER 1 EACH XX PRN; -PROCHLORPERAZINE 10 MG PO PO ONE; -SODIUM CHLORIDE 0.9% INJ 10 ML SYR IV PRN; -dexameTHASONE 10 MG IV IV ONE; -dexameTHASONE 10 MG PO PO ONE; -dexameTHASONE 20 MG IV IV ONE; -dexameTHASONE 20MG/5ML VIAL (J1100 PER 1MG) IV ONE; -dexameTHASONE 4 MG/ML 1ML VIAL (J1100 PER 1MG) IV ONE; -diphenhydrAMINE 25MG CAP PO SCH
[2019-08-20] MEDS ORDERED: METF-839 PO (12:12)
[2019-08-20 13:22] LABS: BASO % 0.4 % (0.0-1.0); EOS # 0.1 10^3/uL (0.0-0.5); EOS % 1.9 % (0.0-3.0); HEMATOCRIT 30.2 % (36.0-47.0); HEMOGLOBIN 9.5 g/dl (12.0-15.5); LYMPH # 0.3 10^3/uL (1.5-5.0); LYMPH % 4.9 % (24.0-44.0); MEAN CORPUSCULAR HEMOGLOBIN 29.8 pg (27.0-33.0); MEAN CORPUSCULAR HGB CONC 31.5 g/dl (32.0-36.5); MEAN CORPUSCULAR VOLUME 94.7 fl (80.0-96.0); MONO # 0.7 10^3/uL (0.0-0.8); MONO % 10.4 % (0.0-5.0); NEUTROPHILS # 5.7 10^3/uL (1.5-8.5); NEUTROPHILS % 82.1 % (36.0-66.0); RED BLOOD COUNT 3.19 10^6/uL (4.00-5.40); WHITE BLOOD COUNT 6.9 10^3/uL (4.0-10.0)
[2019-08-20 13:29] LABS: PLATELET COUNT, AUTOMATED 74 10^3/uL (150-450)
[2019-08-20 13:31] LABS: INR 1.62
[2019-08-20 13:32] LABS: PARTIAL THROMBOPLASTIN TIME 38.8 SECONDS (25.0-38.4)
[2019-08-20 13:56] LABS: ALT/SGPT 18 U/L (12-78); BILIRUBIN,DIRECT 0.3 MG/DL (0.0-0.2); BILIRUBIN,TOTAL 0.9 MG/DL (0.2-1.0); BLOOD UREA NITROGEN 7 MG/DL (7-18); CALCIUM LEVEL 8.5 MG/DL (8.8-10.2); CARBON DIOXIDE LEVEL 27 MEQ/L (21-32); CHLORIDE LEVEL 101 MEQ/L (98-107); CK-MB VALUE MASS < 1.0 NG/ML (<3.6); CPK CREATINE PHOSPHOKINASE 65 U/L (26-192); CREATININE FOR GFR 0.58 MG/DL (0.55-1.30); GLOMERULAR FILTRATION RATE > 60.0 (>39); GLUCOSE, FASTING 138 MG/DL (70-100); MB/CK RELATIVE INDEX 1.54 (< OR =4); NT-PRO BNP 443 PG/ML (<125); POTASSIUM SERUM 3.8 MEQ/L (3.5-5.1); SODIUM LEVEL 138 MEQ/L (136-145); TOTAL PROTEIN 5.6 GM/DL (6.4-8.2); TROPONIN I < 0.02 NG/ML (< 0.10)
[2019-08-20] MEDS ORDERED: ISOVUE-370 76% 100ML VIAL As Ordered ONE (14:03)
[2019-08-20] MEDS ORDERED: METF-838 PO (15:13)
[2019-08-20] MEDS ORDERED: PROP10TA56 PO (15:13)
--- NOTE | 2019-08-20 15:24 | REP ---
CT ANGIOGRAM OF THE CHEST: TECHNIQUE: Axial contrast-enhanced images from the thoracic inlet to the upper abdomen using 100 mL Isovue-370 intravenous contrast material with multiplanar reformations. COMPARISON CT: 06/05/2019 The lung morelos show diffuse interstitial fibrotic change. There is a stable biapical pleural thickening. There is a stable tiny 3 mm nodular density in the right upper lobe. A calcified granuloma is again seen in the left lower lobe. There are dependent fibroatelectatic changes in a focal area of peripheral atelectasis or infiltrate in the left lower lobe posterolaterally. There are tiny bilateral pleural effusions. Diffuse pulmonary emboli are seen involving all lobes. The heart is normal in size. Thoracic aorta demonstrates atherosclerotic calcification with no aneurysm or dissection. There is no evidence of mediastinal, hilar or chest wall lymphadenopathy. There are degenerative changes of the spine. In the visualized portions of the upper abdomen, there is evidence of biliary dilatation. There is moderate diffuse ascites. IMPRESSION: Bilateral pulmonary emboli involving all lobes. Focal atelectasis or infiltrate left lower lobe. Tiny bilateral effusions. Electronically Signed by Rohan Zavaleta MD 08/20/2019 03:41 P
[2019-08-20] MEDS ORDERED: HEPARIN SOD (PORCINE) 5000UNITS/ML 1ML VIAL/SYRINGE IV PRN (16:30)
[2019-08-20] MEDS ORDERED: HEPARIN DRIP 25,000 UNITS in IV 1 EA IV SCH (16:30)
[2019-08-20] MEDS ORDERED: HEPARIN SOD (PORCINE) 5000UNITS/ML 1ML VIAL/SYRINGE IV ONE (16:30)
[2019-08-20 18:10] VITALS: BP 170/81
--- NOTE | 2019-08-20 21:33 | ECGEPIP ---
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
== END 2019-08-20 18:13 | disposition short-term general hospital (02) ==
LOC: M ED 11:51
DX: I26.99 Other pulmonary embolism without acute cor pulmonale (principal); I82.403 Acute embolism and thrombosis of unspecified deep veins of lower extremity, bilateral; R19.5 Other fecal abnormalities; R00.0 Tachycardia, unspecified; E78.5 Hyperlipidemia, unspecified; E11.9 Type 2 diabetes mellitus without complications; C25.9 Malignant neoplasm of pancreas, unspecified; Z79.82 Long term (current) use of aspirin; Z79.84 Long term (current) use of oral hypoglycemic drugs; Z79.899 Other long term (current) drug therapy

== ENCOUNTER → 2019-08-20 | Outpatient (CLI) | payer MEDICARE ==
[~2019-08-20] MED LIST changes: +METF-839 PO
--- NOTE | 2019-08-20 10:25 | REP ---
BILATERAL LOWER EXTREMITY DUPLEX DOPPLER VENOUS ULTRASOUND: Real-time compression and duplex Doppler interrogation of bilateral lower extremity deep venous systems is performed. There is diffuse occlusive thrombus throughout the right common femoral, superficial femoral and popliteal veins extending into the calf veins. There is also occlusive thrombus in the greater saphenous vein. On the left, the common femoral vein is patent and compressible. There is occlusive thrombus of the entire left superficial femoral vein and popliteal vein extending into the calf veins. IMPRESSION: Diffuse occlusive DVT involving the right lower extremity deep vein system extending from the common femoral vein, through the superficial femoral vein and popliteal vein into the calf veins. There is occlusive thrombus in the left superficial femoral and popliteal veins diffusely extending into the left calf veins. Electronically Signed by Rohan Zavaleta MD 08/20/2019 03:06 P
== END ==
LOC: M RAD 09:39
PROVIDERS: ATTEND Internal Medicine Hematology & Oncology
DX: C25.9 Malignant neoplasm of pancreas, unspecified (principal); I82.413 Acute embolism and thrombosis of femoral vein, bilateral; I82.432 Acute embolism and thrombosis of left popliteal vein

== ENCOUNTER → 2019-08-26 | Outpatient (CLI) | payer MEDICARE ==
[~2019-08-26] MED LIST changes: +EMLA CREAM 5GM TUBE (LIDOCAINE/PRILOCAINE) As Ordered ONE; +GASTROGRAFIN SOLUTION 30ML (Q9963) As Ordered ONE; +ISOVUE-300 61% 50ML VIAL As Ordered ONE; +ISOVUE-370 76% 100ML VIAL As Ordered ONE; +ISOVUE-M 300 61% 15ML VIAL As Ordered ONE; +LIDOCAINE 1% MDV 20ML VIAL As Ordered ONE; +METF-839 PO; +TRIAMCINOLONE ACETONIDE SUSP 40 MG/ML VIAL (J3301) As Ordered ONE
--- NOTE | 2019-08-26 11:13 | REP ---
Clinical: History of pancreatic carcinoma for restaging. Technique: Axial contrast enhanced images from the thoracic inlet to the upper abdomen (followed by CT of the abdomen and pelvis) using 100 ml Isovue 370 intravenous contrast material with coronal and sagittal re-formations. Findings: There is a significant saddle embolus extending through the bilateral main pulmonary arteries with extension into the right upper lobe, right lower lobe, left upper lobe, and left lower lobe pulmonary arteries. Moderate pleural effusions and bibasilar atelectasis noted. Few small calcified and noncalcified densities measure up to approximately 6 mm and are nonspecific and similar to recent prior examination. Further evaluation of the mediastinum demonstrates atherosclerotic changes to the thoracic aorta and coronary arteries without aortic aneurysm or cardiomegaly. No pericardial effusion. Surrounding musculoskeletal structures are intact. Impression: 1. Saddle embolus with extension into the right and left upper and lower lobes similar to prior examination. 2. New moderate pleural effusions and lower lobe atelectasis. Electronically Signed by Pascual Kilpatrick MD 08/26/2019 11:05 A
--- NOTE | 2019-08-26 11:26 | REP ---
Clinical: Pancreatic carcinoma for restaging. Technique: Axial contrast enhanced images from the lung bases to the pubic symphysis with coronal and sagittal re-formations using oral (per protocol) and 100 ml Isovue 370 intravenous contrast material. Comparison: 06/05/2019, 05/26/2019. Findings: Marked ascites and innumerable hepatic metastases along with elements of intrahepatic and biliary ductal dilatation now appreciated and represent a significant change from prior examination. The pancreas demonstrates low density changes and suspected mass at the head/uncinate process similar to prior examination. Spleen, gallbladder, bilateral adrenal glands and kidneys are relatively normal / stable. Kidneys again demonstrate age-related changes and small cysts without hydronephrosis. The enteric system is without obstruction or obvious acute inflammatory process. Pelvis demonstrates normal bladder and age-appropriate uterus/adnexa. Atherosclerotic changes to the aorta and vasculature noted without aneurysm or dissection. Skeletal structures demonstrate degenerative changes. Impression: 1. Marked ascites and innumerable hepatic metastases along with elements of intrahepatic biliary ductal dilatation represent a significant change from 06/05/2019 and 05/26/2019 examinations. 2. Appearance of the pancreas including low density parenchymal changes and mass remain unchanged. Electronically Signed by Pascual Kilpatrick MD 08/26/2019 11:17 A
== END ==
LOC: M RAD 08:57
PROVIDERS: ATTEND Internal Medicine Hematology & Oncology
DX: C25.9 Malignant neoplasm of pancreas, unspecified (principal); I26.92 Saddle embolus of pulmonary artery without acute cor pulmonale; J90 Pleural effusion, not elsewhere classified; J98.11 Atelectasis
CPT/HCPCS: 71260; 74177; J1642; Q9963; Q9967

== ENCOUNTER → 2019-08-26 | Outpatient (CLI) | payer MEDICARE ==
[~2019-08-26] MED LIST changes: -EMLA CREAM 5GM TUBE (LIDOCAINE/PRILOCAINE) As Ordered ONE; -GASTROGRAFIN SOLUTION 30ML (Q9963) As Ordered ONE; -ISOVUE-300 61% 50ML VIAL As Ordered ONE; -ISOVUE-370 76% 100ML VIAL As Ordered ONE; -ISOVUE-M 300 61% 15ML VIAL As Ordered ONE; -LIDOCAINE 1% MDV 20ML VIAL As Ordered ONE; -TRIAMCINOLONE ACETONIDE SUSP 40 MG/ML VIAL (J3301) As Ordered ONE
--- NOTE | 2019-08-26 14:38 | RADONC ---
RADIATION ONCOLOGY DATE OF SERVICE: 08/26/2019 , teleconference DIAGNOSIS: Metastatic pancreatic cancer. HISTORY OF PRESENT ILLNESS: Ms. De Oliveira is a 74-year-old woman who has the diagnosis of locally advanced pancreatic cancer. She completed chemoradiation therapy on 07/27/2019. INTERVAL HISTORY: According to the , the patient was brought to the [facility] and she was found to have pulmonary embolism in the lung as well as in the leg. She had CT today and compared to prior studies from May 25 and June 04, 2009, and it reported marked ascites and innumerable hepatic metastasis along with an element of intrahepatic biliary ductal dilatation and appearance of pancreas including low density parenchymal changes and masses remain unchanged. CT of chest reported subtle embolus with extension into the right and left upper and lower lobes, and new moderate pleural effusion in the lower lobe atelectasis. ASSESSMENT/RECOMMENDATION: Ms. De Oliveira, 74-year-old woman who has the diagnosis of unresectable pancreatic cancer status post chemoradiation therapy, which was completed July 27, 2019, now she has metastatic pancreatic cancer to the liver as well as lung. Supportive care is recommended. MTDD
== END ==
LOC: M ONCR 13:47
PROVIDERS: ATTEND Radiology Radiation Oncology
DX: C25.9 Malignant neoplasm of pancreas, unspecified (principal)